=== PATIENT | male | born 1945 | race Caucasian/White ===

== ENCOUNTER → 2024-04-30 15:37 | Outpatient (REF) | payer OTHER, SELFPAY | LOC: RCS 15:37 | PROVIDERS: ATTENDING PHYSICIAN Internal Medicine Cardiovascular Disease; FAMILY PHYSICIAN Family Medicine | DX: I50.32 Chronic diastolic (congestive) heart failure (principal); Z95.3 Presence of xenogenic heart valve | CPT/HCPCS: 93306; Q9950 ==

== ENCOUNTER 2025-04-01 14:52 | Inpatient (IN) | payer OTHER, SELFPAY ==
[2025-04-01] VITALS (49 sets, daily range): BP systolic 50–134; BP diastolic 25–102
[2025-04-01] MEDS: VERSED 2 MG IV ×2 (13:04→13:52)
--- NOTE | 2025-04-01 13:13 | CON.CAR ---
Addendum entered and electronically signed by Pablo Marshall MD 04/01/25 18:37:
I saw and examined the patient.
The Lay Out Drafter's note was reviewed and I agree with the note.
Comment:
GEN: Intubated and sedated.
HEENT: supple, anicteric, mmm, ET tube
LUNGS: Scattered rhonchi
CV: Irreg, S1/S2, 1/6 syst LSB, no gallop
ABD: soft, BS+, NT/ND
EXT: No edema
NEURO: Gross non-focal
SKIN: Chronic venous stasis changes
Plan:
80-year-old male with past medical history of CABG/AVR, chronic heart failure with preserved ejection fraction, right bundle branch block, permanent atrial fibrillation, hypertension, obesity, and hyperlipidemia presented today with cardiac arrest
in the main hospital lobby. Code 9 was called overhead and upon arrival the patient was being administered high-quality CPR with no pulse. Monitor was placed and the patient was in V-fib. Patient was shocked with an AED and ultimately a cardiac
monitor was placed. High-quality CPR continued and an IV was placed. The rhythm was V-fib and the patient was shocked again with the resultant rhythm then becoming PEA. CPR continued and epinephrine was given x 3. The patient was intubated via
anesthesia with bloody secretions and bright red blood coming from his endotracheal tube. Rhythm became V-fib again the patient was again shocked and at this point regained circulation with a rhythm of A-fib with a left bundle branch block and a
blood pressure of 165/80. Amiodarone was initiated with a 300 mg bolus and a drip subsequently started. The patient was then transferred to the emergency room for further evaluation.
Ultimately the patient was then found to be hypotensive, placed on Levophed and further evaluation including head CT and body CT revealed no acute stroke and no clear evidence for pulmonary embolism or aortic dissection. Lung guerrero did suggest
bilateral airspace opacities consistent with possible pneumonia or pulmonary edema.
Labs revealed hemoglobin of 10, white count of 14, and creatinine of 1.2. Lactate was 2.4. Cardiac troponin was 0.67 with proBNP of 1500.
The patient was decided since he had some spontaneous movement to maintain normal temperature and was transferred to the intensive care unit.
The patient was continued on amiodarone, Levophed, and propofol.
The patient remains critically ill. The etiology of his cardiac arrest is unclear. He clearly had ventricular fibrillation but also had rhythms of PEA and asystole during his event.
CT scan was unremarkable. He does appear to have some acute on chronic heart failure with preserved ejection fraction. We will check an echocardiogram.
I reviewed his previous echo which did have at least moderate bioprosthetic aortic valve stenosis. Ejection fraction at that time was preserved. He did have some mild mitral stenosis as well.
Continue supportive care. Continue neurology evaluation. We will trend troponins. We will assess his neurostatus on a daily basis.
If he does recover he likely will need a cardiac catheterization and ICD.
I would expect his troponins, creatinine and lactate to rise in the short-term.
Continue antibiotics for now. With his bleeding I would hold anticoagulation for the next 12 hours and then reassess in a.m. likely restarting Eliquis at that time if he has no further bleeding. He may have bit his tongue during his cardiac arrest.
Time spent including code, review of records, and critical care time 1 hour and 30 minutes
Original Note:
Consultation
Consultation Request
Date/Time Consultation Requested: 04/01/25
Date/Time Consultation Performed: 04/01/25
Performing Provider: Dr. Marshall
Reason for Consultation: Urgent consult for code in the lobby
Medical History
-
History of Present Illness:
Patient had an btb-sj-[id number] cardiac arrest while in the main lobby registering for outpatient testing and cardiology responded for the overhead call of a code and is now consulted. Patient saw Dr. Gavin in the office on 10/14/2024 and felt that he
was doing well from a cardiac standpoint although there was some concern for bioprosthetic AVR dysfunction, plan was to check an outpatient echo. Patient presented to [facility] main lobby today to register for his outpatient echo and while walking
through the vestibule to reach the lobby he collapsed, a bystander reports patient was walking and then was suddenly on the ground. Situation was recognized situation was recognized, CPR started, AED applied, shock advised and given, CPR resumed
AED advised another shock which was given, and that time additional personnel arrived and patient was placed on heart monitor that showed VF, patient shocked using external defibrillator, a total of 3 rounds of epi was given, patient then with
asystole and was given additional CPR then VF and then another shock and since then has been in A-fib with his chronic RBBB. During this patient was also intubated and was found to have blood in his mouth prior to intubation. Patient was
stabilized transferred to a stretcher and moved to the ER.
PMH:
Chronic HFpEF
Permanent Afib
Chronic Eliquis OAC
cRBBB
s/p tissue AVR for severe 04/06/2011
CAD s/p CABG with SVG to PDA 04/06/2011
HTN
Dyslipidemia
Morbid obesity
Hypothyroidism
Past Medical History
Past Medical History: Other (In HPI)
Past Surgical History: Cardiac (s/p tissue AVR and CABG s/p tissue AVR and CABG svg-PDA 04/06/2011) and Cholecystectomy
Social History
Tobacco: Former Smoker
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
Drug: None
Personal: Single
Living: Alone
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
Family History
Family History: Other (CHF, CKD, cancer)
Allergies / Home Medications
Allergy/AdvReac Type Severity Reaction Status Date / Time
enoxaparin (From Lovenox) Allergy Rash Verified 03/02/22 11:22
Penicillins Allergy swelling Verified 03/02/22 16:01
and
redness at
site;
tolerated
cephalexin
�Medication �Instructions �Recorded �Confirmed �Type
atorvastatin 20 mg tablet 20 mg PO QPM High cholesterol 03/20/11 12/12/22 History
cholecalciferol (vitamin D3) 25 1,000 units PO DAILY Supplement 05/31/18 12/12/22 History
mcg (1,000 unit) tablet
multivitamin with folic acid 400 1 tab PO QPM Supplement 05/31/18 12/12/22 History
mcg tablet (Tab-A-Alberta)
tamsulosin 0.4 mg capsule 0.4 mg PO QPM bladder 05/31/18 12/12/22 History
Slow Fe 320 mg PO DAILY Supplement 01/05/22 12/12/22 History
apixaban 5 mg tablet (Eliquis) 5 mg PO BID Blood clot 01/05/22 12/12/22 History
prevention/tx
furosemide 40 mg tablet 40 mg PO QPM Fluid 01/05/22 12/12/22 History
retention/Swelling
levothyroxine 150 mcg tablet 150 mcg PO DAILY@0700 Thyroid 01/05/22 12/12/22 History
lisinopril 5 mg tablet 5 mg PO DAILY Blood pressure 01/05/22 12/12/22 History
Nebivolol Hcl [Bystolic] 10 mg PO DAILY 30 days #30 tabs 03/09/22 12/12/22 Rx
acetaminophen 500 mg tablet 1,000 mg PO Q6H PRN pain 12/12/22 12/12/22 History
levofloxacin 500 mg tablet 500 mg PO DAILY 6 days #6 tabs 12/12/22 Rx
Review of Systems
-
History Source: Patient
All other systems: Negative unless noted
Physical Exam
Vital Signs
Pulse Resp BP Pulse Ox
112 16 116/74 92
04/01/25 13:00 04/01/25 13:00 04/01/25 12:59 04/01/25 12:59
GEN: Unresponsive
HEENT: MMM, blood in his mouth
LUNGS: Intubated during code with bag mask ventilation. No audible wheeze
CV: Afib on monitor.
ABD: Obese. ND, soft
EXT: Trace B/L LE edema. No clubbing, cyanosis or lesions B/L
SKIN: No rash
Lab Results
All labs pending
ECG reviewed by me is A-fib with RVR and underlying chronic R BBB
Impression / Plan
-
PCP: Dr. Mona Jerry
Card: Dr. VANESSA Calero
Impression:
Admitted with out of hospital cardiac arrest 04/01/25
Out of hospital cardiac arrest with CPR, AED shocks, external shocks and ROSC 04/01/25
collapsed in the main lobby of the hospital while there to register for an echo
VF
Possible acute on chronic HFpEF
CXR shows pulmonary edema 04/01/25
Permanent Afib
Chronic Eliquis OAC
cRBBB
s/p tissue AVR for severe 04/06/2011
CAD s/p CABG with SVG to PDA 04/06/2011
HTN
Dyslipidemia
Morbid obesity
Hypothyroidism
Echo 04/30/2024: EF 65 to 70%, moderate concentric LVH, mild MS peak/mean 13/5 mmHg, mild MR, well-seated tissue AVR with peak/mean 45/29 mmHg, mild TR with PAP 41 mmHg
Plan:
-Patient had an [id number]-ndvewdmy cardiac arrest while in the main lobby registering for outpatient testing and cardiology responded for the overhead call of a code and is now consulted. Patient saw Dr. Gavin in the office on 10/14/2024 and felt that he
was doing well from a cardiac standpoint although there was some concern for bioprosthetic AVR dysfunction, plan was to check an outpatient echo. Patient presented to [facility] main lobby today to register for his outpatient echo and while walking
through the vestibule to reach the lobby he collapsed, a bystander reports patient was walking and then was suddenly on the ground. Situation was recognized situation was recognized, CPR started, AED applied, shock advised and given, CPR resumed
AED advised another shock which was given, and that time additional personnel arrived and patient was placed on heart monitor that showed VF, patient shocked using external defibrillator, a total of 3 rounds of epi was given, patient then with
asystole and was given additional CPR then VF and then another shock and since then has been in A-fib with his chronic RBBB. During this patient was also intubated and was found to have blood in his mouth prior to intubation. Patient was
stabilized transferred to a stretcher and moved to the ER.
-Initial ECG in the ER reviewed by me shows A-fib with RBBB
-All labs pending
-BP 116/74 without pressor
-Await results of CT head, abdomen and pelvis.
-CXR showed interstitial pulmonary edema. pro-BNP pending. Patient will likely need to be diuresed. Patient was taking Lasix 40 mg plus metolazone 5 mg on Mondays and and 80 mg all other days prior to admission. Will order Lasix 80 mg
IV x 1 now
-EF was preserved by echo 04/30/2020 form patient was due for another echo today. Will order bedside echo, order placed by me
-Patient with blood in his mouth prior to intubation. Patient is currently on Eliquis 5 mg BID for permanent A-fib. Await labs, but presumably will need to hold Eliquis
-Patient with known permanent A-fib and appears to be in A-fib on ECG following resuscitation. Patient was taking Nebivolol 10 mg daily prior to admission. HR is controlled currently.
--- NOTE | 2025-04-01 13:14 | PTCARENOTE ---
04/01/25 1332 Called to main lobby for code 9. Arrived to find CPR in progress, pt unresponsive, and respiratory attempting to mask ventilate. Pt noted to have copious amounts of blood in his mouth. Pt was suctioned with portable suction on the code
cart. Copious amounts of fresh red blood noted in the mouth and airway. Handheld glidescope utilized for intubation. MAC 4, DL x 2, #8.0 ETT placed, + ETCO2. Taped at 23cm. CPR resumed. Ventilation continued by respiratory therapy.
--- NOTE | 2025-04-01 13:14 | ED.GENMED ---
History of Present Illness
General
Chief Complaint: CODE
Time Seen by Provider: 04/01/25 12:52
History of Present Illness
History of Present Illness:
80-year-old male with a past medical history of hypertension, hyperlipidemia, CAD status post CABG, atrial fibrillation who presents to the emergency department transported from the main [facility] after rapid response for cardiac arrest. Patient was
apparently scheduled for an outpatient echocardiogram and collapsed in the lobby here at the hospital. He had immediate bystander CPR; initially an AED was applied and he was shocked by AED. Subsequently placed on monitoring analyst and received
approximately 15 minutes of ACLS including 2 shocks for VT/VF, 300 mg of amiodarone and 3 total doses of IV epinephrine. He was started on amiodarone infusion. After ROSC he was transported to the emergency room. He was intubated prior to arrival
in the emergency room. I called his brother Kev who says that patient was not very close with his family did not speak to anyone about his health issues but was generally unhealthy. He is apparently a patient of Dr. Calero for cardiology.
Past History
Past History
ED Past Medical History: Arrthythmia (Atrial fibrillation), CAD, Cancer (Skin), CHF, HTN, Hypercholesterolemia, Valvular disease, Hypothyroidism and Other (Cellulitis, Anemia, )
ED Past Surgical History: Cardiac (Valve replacement, CABG, Cardiac ablation), Cholecystectomy and Tonsilectomy
Social History
Tobacco: Former smoker
Alcohol: Occasional
Drug: None
Personal: Single
Living: alone
Family History
Family History: Negative Early CAD
Review of Systems
Review of Systems
Unable to obtain full review of systems at this time due to: due to acuity
All Other Systems: Not applicable
Phy Exam
Physical Exam
Physical Exam:
General: Unresponsive, intubated
Head: Normocephalic, atraumatic
Eyes: Conjunctiva normal, pupils are reactive to light bilaterally
Throat: Intubated, some dried blood noted around the lips
Neck: Trachea midline
Lungs: Clear to auscultation bilaterally, no wheezing, rales, rhonchi appreciated
Heart: Tachycardia with irregular rhythm, no murmurs appreciated; he does have palpable pulses throughout
Abd: Soft, mildly distended
Extremities: Warm and well-perfused, left pretibial intraosseous line in place
Scores
Heart Failure Risk
Heart Failure Risk Score: Not Applicable
Heart Score for Chest Pain Patients
STEMI patient?: Not applicable
Withdrawal Assessment of Alcohol
Withdrawal Assessment Completed?: Not applicable
Course
Orders/Labs/Results
Orders:
Orders
04/01/25
Electrocardiogram (*1) Stat
Other Reason for Exam: CODE
04/01/25 Breakfast
NPO
Allow oral meds: No
Allow clear liquids: No
NPO with Ice Chips: No
Comment: may receive medications via tube if ordered
04/01/25 Lunch
NPO
Allow oral meds: Yes
Allow clear liquids: No
04/01/25 12:49
Amiodarone [Cordarone] 300 mg .ROUTE .STK-MED ONE
Amiodarone [Cordarone] 900 mg .ROUTE .STK-MED ONE
EPINEPHrine [Adrenalin 1 mg/10 ml] 2 mg .ROUTE .STK-MED ONE
Magnesium Sulfate 1 G/D5w [Magnesium Sulfate] 1 gm .ROUTE .STK-MED ONE
04/01/25 12:55
Electrocardiogram (*1) Urgent
Reason for Study: Syncope
CT Head W/o Iv Contrast Urgent
Comment:
Reason For Exam: code
04/01/25 12:56
CT Pe/abd/pel W Stat
Comment:
Reason For Exam: code
CR Chest Portable - 1 View Stat
Comment:
Reason For Exam: unstable
Reason Study Needs to be Portable: Unable to Transport
04/01/25 13:03
EPINEPHrine [Adrenalin 1 mg/10 ml] 1 mg .ROUTE .STK-MED ONE
04/01/25 13:47
CMP [Comprehensive Metabolic Panel] Urgent
Complete Blood Count/With Diff Urgent
Lactic Acid Urgent
Magnesium Urgent
Comment: ADD ON
NT-proBNP Urgent
PTT Stat
Phosphorus Urgent
Comment: ADD ON
Prothrombin Time Stat
Triglycerides Routine
Comment: baseline levels with propofol infusion
Troponin I Urgent
FentaNYL 1,000 MCG/100 ML [Sublimaze] 1,000 mcg in 100 ml IV NOW
Indication:: Light Sedation
Begin Infusion:: Now
Goal:: pain score </= 1, CPOT 0-2
Maximum dose in mcg/hr:: 300
Continue currently infusing dose and titrate:: Yes
Titration Instructions:: Titrate every 30 minutes if patient exhibits signs of pain or discomfort
Titration Instructions:: (pain score >/= 2, CPOT >/= 3).
Titration Instructions:: Administer bolus dose and increase infusion by 25 mcg/hr.
Taper Instructions:: If pain score at goal for 4 consecutive hours (pain score </= 1, CPOT 0-2)
Taper Instructions:: decrease infusion by 50 mcg/hr every 2 hours.
Taper Instructions:: When dose </= 50 mcg/hr may turn infusion off and consider PRN
Taper Instructions:: intermittent bolus doses only.
Over-sedation Instructions:: If CPOT 0-2 (goal) and RASS -3 to -5 (below goal) decrease sedative by 50%
Over-sedation Instructions:: first. If pain score remains at goal and RASS remains below goal in 1 hour,
Over-sedation Instructions:: decrease opioid infusion by 50%.
Notify provider:: immediately if pt exhibits: chest wall rigidity, hemodynamic instability,
Notify provider:: agitation/pain despite maximum dosing, pain when RASS below goal.
Additional Instructions:: Patient MUST be mechanically ventilated.
Fentanyl Citrate/Pf [Sublimaze] 100 mcg IV NOW STA
Fentanyl Citrate/Pf [Sublimaze] 50 mcg IV [id number] PRN
NORepinephrine 4 MG/250 ML [Levophed] 4 mg in 250 ml IV NOW
Initial dose in mcg/min, then titrate:: 2
Titrate to keep:: MAP > 65 mmHg
Titrate by mcg/min:: 1-2 mcg/min
Frequency of titrations (minutes):: 5
Maximum dose in ICU in mcg/min:: 30
Maximum dose in IMU in mcg/min:: 8
Maximum dose in IVU in mcg/min:: 4
Begin to taper infusion when:: Remained at goal for 4hrs
Taper by mcg/min:: 1-2 mcg/min
Frequency of taper (minutes) if patient maintains goal:: 30
Taper to off?: Yes
If infusion off & no longer maintaining goal:: Contact Provider
Propofol 1,000,000 Mcg/100 ml [Diprivan] 1,000,000 mcg in 100 ml IV NOW
Indication:: Light Sedation
Begin Infusion:: Now
Goal:: RASS 0 to -2
Maximum dose in mcg/kg/min:: 50
Initial dose based on RASS:: Yes
If RASS is:: +1 or pt hemodynamically unstable (SBP < 90mmHg), initiate at 10 mcg/kg/min
If RASS is:: +2, initiate at 20 mcg/kg/min
If RASS is:: greater than or equal to +3, initiate at 30 mcg/kg/min
Titration Instructions:: Titrate by 5-10 mcg/kg/min every 5 minutes until RASS 0 to -2 achieved.
Taper Instructions:: If RASS is at or below goal for 4 consecutive hours decrease infusion by
Taper Instructions:: 5-10 mcg/kg/min every 2 hours to off.
Over-sedation Instructions:: If CPOT 0-2 (at goal) AND RASS -3 to -5 (below goal) decrease sedative by
Over-sedation Instructions:: 50% first. If pain score remains at goal and RASS remains below goal in
Over-sedation Instructions:: 1 hour, decrease opioid infusion by 50%.
Notify provider:: immediately if patient exhibits signs/symptoms of propofol-related
Notify provider:: infusion syndrome.
Additional Instructions:: Patient MUST be mechanically ventilated and MUST receive analgesia.
04/01/25 13:52
CARDIOLOGY CONSULT Urgent
Consulting Provider: Pablo Marshall
Was physician already notified: Yes
Consult Seed Packer [Seed Packer Consult] Urgent
Consulting Provider: Raymond Huber
Was physician already notified: Yes
Hull Placement- Treatment ONCE
Reason for insertion: I&O's Critical Care
04/01/25 13:54
Electrocardiogram (*1) Urgent
Reason for Study: Atrial Fibrillation
EKG- Treatment ONCE
04/01/25 13:58
Arterial Blood Gas Stat
%Oxygen/Room Air: 21
04/01/25 14:00
Blood Culture Q30M
MARY JANE Source: Blood/Venous
Specimen Description:
04/01/25 14:01
Echo 2D MMode Color/Doppler Routine
Reason for Study: cardiac arrest, tiss AVR, CHF
Cardiology Consult: Singh Marshall
04/01/25 14:02
Furosemide [Lasix] 80 mg IV NOW STA
04/01/25 14:09
Admit/Transfer Patient As Directed
Co-Sign Provider:
Level of Care: Inpatient admission
Assign to:: ICU
Physician / Group: Rosanna Ruffin
Diagnosis: cardiac arrest
Reason for Hospitalization: cardiac arrest
Expected length of stay greater than two midnights?: Yes
ELOS- Estimated Length of Stay in days: 3
I certify the patient meets the requirements for IP care: Yes
PRN Pain Medication Management As Directed
May give lesser potent ordered pain med per pt: Yes
preference::
Protocol:: Medication orders for pain may be administered in a
manner that supports deferring to patient preference
when the pt is:
- Requesting an ordered lesser potent pain medication.
Least to most potent pain medications are defined
as: acetaminophen < NSAID < tramadol < opioids
(morphine, oxycodone, hydromorphone).
- Requesting a lesser dose of the same medication IF
ORDERED.
- Requesting a less intrusive route of administration
if both routes are prescribed by the provider (PO <
IV).
04/01/25 14:10
Code Status As Directed
Resuscitation Status: Full Code
04/01/25 14:15
Ventilator Initial Settings [RESP] Stat
Special Instructions: wean FiO2 to 0.3 as tolerated to keep O2 sats > 92%
04/01/25 14:25
NG Tube [GI tube insertion- Treatment] ONCE
04/01/25 14:27
Fentanyl Citrate/Pf [Sublimaze] 100 mcg IV NOW STA
Vancomycin [Vancocin] 2,000 mg 0.9% Sodium Chloride 500 ml [Nss] 500 ml IV NOW
04/01/25 14:28
Urinalysis Reflex To Culture Urgent
Cefepime HCl [Maxipime] 1,000 mg IV NOW STA
04/01/25 14:30
Blood Culture Q30M
MARY JANE Source: Blood/Venous
Specimen Description:
FentaNYL 1,000 MCG/100 ML [Sublimaze] 1,000 mcg in 100 ml IV PER PROTOCOL
Propofol 1,000,000 Mcg/100 ml [Diprivan] 1,000,000 mcg in 100 ml IV PER PROTOCOL
04/01/25 14:54
Acetaminophen [Tylenol Oral Solution] 650 mg TUBE NOW STA
Acetaminophen [Tylenol/Feverall] 650 mg RECTAL Q6HPRN PRN
Buspirone [Buspar] 30 mg TUBE NOW STA
FentaNYL 1,000 MCG/100 ML [Sublimaze] 1,000 mcg in 100 ml IV PER PROTOCOL
Indication:: TTM Shivering Prot Step 2
Begin Infusion:: Other
Begin infusion when:: BSAS >/= 1 15 minutes after indicated step 1 bolus
Goal:: BSAS = 0, pain score </= 1, CPOT 0-2
Maximum dose in mcg/hr:: 300
Continue currently infusing dose and titrate:: Yes
Titration Instructions:: Titrate every 30 minutes if patient exhibits shivering (BSAS >/= 1) or
Titration Instructions:: signs of pain/discomfort (pain score >/= 2, CPOT >/= 3).
Titration Instructions:: Administer bolus dose and titrate by 25 mcg/hr.
Titration Instructions:: if BSAS >/= 1 30 minutes after beginning infusion with boluses,
Titration Instructions:: Proceed to Step 3. Continue to up titrate fentanyl as needed.
Taper Instructions:: If shivering and pain scores are at goal for 4 consecutive hours (BSAS = 0,
Taper Instructions:: pain score </= 1, CPOT 0-2): Decrease dose by 50 mcg/hr every 2 hours.
Taper Instructions:: When dose </= 50 mcg/hr may turn infusion off and consider as needed
Taper Instructions:: intermittent bolus doses only.
Notify provider:: immediately if pt exhibits: chest wall rigidity, hemodynamic instability,
Notify provider:: agitation/pain despite maximum dosing, pain when RASS below goal.
Additional Instructions:: if receiving sedation continue to up titrate analgesia first when available
Additional Instructions:: Patient MUST be mechanically ventilated.
Fentanyl Citrate/Pf [Sublimaze] 50 mcg IV [id number] PRN
Propofol 1,000,000 Mcg/100 ml [Diprivan] 1,000,000 mcg in 100 ml IV PER PROTOCOL
Indication:: TTM Shivering Prot Step 3
Begin Infusion:: Other
Begin infusion when:: BSAS >/= 1 30 minutes after beginning Fentanyl infusion with boluses
Goal:: BSAS 0 or RASS 0 to -2
Maximum dose in mcg/kg/min:: 50
Continue currently infusion dose and titrate:: Yes
Titration Instructions:: Titrate by 5-10 mcg/kg/min every 5 minutes until BSAS 0 or RASS 0 to -2.
Titration Instructions:: when available, up titrate analgesia first.
Titration Instructions:: If BSAS >/=1 despite Propofol at maximum tolerated dose, proceed to Step 4.
Taper Instructions:: If BSAS or RASS is at or below goal for 4 consecutive hours decrease
Taper Instructions:: dose by 5-10 mcg/kg/min every 2 hours.
Over-sedation Instructions:: If CPOT 0-2 (at goal) AND RASS -3 to -5 (below goal) decrease sedative by
Over-sedation Instructions:: 50% first. If pain score remains at goal and RASS remains below goal in
Over-sedation Instructions:: 1 hour, decrease opioid infusion by 50%.
Notify provider:: immediately if patient exhibits signs/symptoms of propofol-related
Notify provider:: infusion syndrome.
Additional Instructions:: Patient MUST be mechanically ventilated.
Vecuronium [place] [Norcuron] 9 mg IV Q1HPRN PRN
04/01/25 14:54
Electrocardiogram (*1) Urgent
Reason for Study: Other
Other Reason for Exam: cardiac arrest
Case Management Consult Once
Case Management Consult: Discharge Planning
NEUROLOGY CONSULT Urgent
Consulting Provider: Ariel Cabral
Was physician already notified: Yes
EEG Routine Routine
Reason for Exam: change in mental status
Prealbumin (Transthyretin) Routine
Triglycerides Routine
Comment: baseline levels with propofol infusion
Activity As Directed
Activity Level: As Tolerated
Activity As Directed
Activity Level: Bedrest
Comment: obtain Sport bed, Maintain HOB 30 degrees
Arterial Line As Directed
Bedside Glucose Monitoring As Directed
Frequency: Other frequency
Other frequency: Q1 hour x 4 hours
Additional Instructions:: If glucose is greater than or equal to 180 mg/dL: Contact provider to initiate
Critical Care Glycemic Protocol Target Glucose Range 140-180 mg/dL.
Catheter- Indwelling As Directed
Reason for insertion: I&O's Critical Care
Comment: temperature sensing Hull catheter with hourly urine output
Gastric Lavage As Directed
Route: Nasogastric Tube/ Orogastric Tube
Irrigant: Purified/Distilled Water
Amount in mls: 250-500ml iced water
Remove irrigant after __min: 10
Gastric lavage directions: - Chilled gastric lavage: instill 250-500mL iced water, clamp for 10-15 minutes
then connect gastric tube to suction.
- Repeat for total volume of 30mL/kg. Maximum 3 liters
- Discontinue once TTM device is initiated
Gastrointestinal Tubes As Directed
To suction?: No
Comment: insert nasogastric or orogastric tube
Head of Bed-Restrictions As Directed
Elevation Level: 30 degress
Frequency: At all times
INT (Intravenous Needle Therapy) As Directed
Comment: peripheral IV required, consider 2 peripheral IV lines
Intake/ Output As Directed
Frequency: q1h
Comment: hourly urine output
Neurological Checks As Directed
Frequency: q4h
Additional Instructions:: Obtain baseline, then every 4 hours
Notify MD As Directed
Notify physician if: BSAS >=1 despite maximum tolerated dose of propofol and proceeding to step 4 of shivering
protocol to change pain and sedation orders to deep sedation protocol and discontinue
current Fentanyl and Propofol orders.
Notify MD As Directed
Notify physician if: serum magnesium less than 3.0 mg/dL
Nursing to Place Non Medication Order As Directed
Physician Order: ABG every 12 hours x [address] Non Medication Order As Directed
Physician Order: order each lab below for Urgent every 6 hours x 6
CBC with Diff
Complete Metabolic Panel
Magnesium
Phosphorus
CK
CKMB
Troponin
Lactate
Pneumatic Compression Sleeves As Directed
Type: Knee high
Comment: bilateral
Pneumatic Compression Sleeves As Directed
Type: Knee high
Pre-induction Neuromuscular Assessment As Directed
Pre-induction Neuromuscular Assessments: -Confirm [place] Agitation Sedation Scale (RASS) of -3 to -5
-Document:
--GSC ([place] Coma Scale)
--Corneal reflex
--Train of four
Shivering Protocol for Targeted Temperature Management As Directed
Instructions:: Use stepwise approach for management of shivering.
Bedside shivering assessment score (BSAS) frequency:: Q 30 minutes until target temperature achieved then Q 1
hour and PRN
Step 1:: Fentanyl or Meperidine intermittent bolus doses
If BSAS >=/ 1 15 minutes after bolus(es), proceed to Step 2.
Step 2:: Begin/increase Fentanyl infusion + continue Fentanyl boluses
If BSAS >/= 1 after 2 analgesic bolus doses and Fentanyl infusion on for 30 minutes,
proceed to Step 3.
Step 3:: Begin Propofol infusion + continue Fentanyl infusion + Fentanyl boluses
If BSAS >=/1 despite Propofol at maximum tolerated dose, proceed to Step 4.
Step 4:: NMBA intermittent bolus doses.
Contact provider to update pain and sedation orders/obtain orders for DEEP SEDATION.
If BSAS >/= 1 after 2 NMBA bolus doses within 3 hours, proceed to Step 5.
Step 5:: Begin NMBA infusion + continue NMBA boluses + deep sedation.
Continuous IV analgesia and sedation must be ordered.
Additional Instructions:: When beginning Step 4 (NMBA bolus doses), obtain orders for DEEP SEDATION and
discontinue Fentanyl and Propofol orders from steps 1, 2, and 3.
Skin Care As Directed
Type of Skin Care: skin checks every 2 hours
Specialty Mattress As Directed
Type of Mattress: Other
Other type of speciality mattress: Sport Bed
Targeted Temperature Management Cooling Phase As Directed
Goal Temp:: 96.8 F (36 C)
Directions: - Wrap patient in surface cooling pads and attach to temperature management device.
- Maintain patient at goal temperature for 24 hours.
- Once device is initiated, discontinue use of cooled fluids and gastric lavage unless directed to
continue.
Targeted Temperature Management Normothermia Phase As Directed
Active Normothermia Instructions:: Maintain surface cooling device and set temperature to 97.4 F for 48 hours
post rewarming.
Targeted Temperature Management Rewarming Phase As Directed
Rewarming Directions:: -Increase temp by 0.33 degrees F every hour per automatic rewarming mode until temp
reaches 97.4 degrees F
-If using continuous NMBA, turn off when temperature reaches 97.0 degrees F
-Once normothermia target temperature is achieved, wean sedation to maintain a RASS
level of 0 to -2, refer to Pain, Agitation, Sedation guidelines
-Discontinue previous serial labs then
-CMP, CBC, Mag, Phos, and Lactate every 4 hours x 6
-Stop electrolyte replacement 6 hours prior to rewarming (unless electrolyte levels
critical)
Vital Signs As Directed
Frequency: Other
Additional Instructions:: q30min x4 then q1h including core temp via TTM device
Vital Signs As Directed
Frequency: Per unit guidelines
Weight As Directed
Frequency: Daily
Ventilator Initial Settings [RESP] Routine
Tidal Volume: 500
FIO2: 100
PEEP: 5
DX Deep Vein Thrombosis Video Routine
04/01/25 15:00
Blood Culture Q30M
MARY JANE Source: Blood/Venous
Specimen Description:
0.9% Sodium Chloride 500 ml [Nss] 500 ml IV Q30M
Vecuronium [place] [Norcuron] 60 mg 0.9% Sodium Chloride 250 ml [Nss] 190 ml IV PER PROTOCOL
04/01/25 16:00
Buspirone [Buspar] 30 mg TUBE Q8
04/01/25 18:00
Acetaminophen [Tylenol Oral Solution] 650 mg TUBE Q6
04/01/25 20:00
Carboxymethylcellulose [Refresh Celluvisc Gel] 1 drops OPHTH BID
04/02/25 06:00
Basic Metabolic Panel IN AM
Magnesium IN AM
NT-proBNP IN AM
PTT IN AM
Prealbumin (Transthyretin) IN AM
Prothrombin Time IN AM
CR Chest Portable - 1 View DAILY
Comment:
Reason For Exam: cardiac arrest
Reason Study Needs to be Portable: Patient Unstable
04/02/25 08:00
Pantoprazole [Protonix IV] 40 mg IV DAILY
04/03/25 06:00
NT-proBNP IN AM
PTT IN AM
Prealbumin (Transthyretin) IN AM
Prothrombin Time IN AM
CR Chest Portable - 1 View DAILY
Comment:
Reason For Exam: cardiac arrest
Reason Study Needs to be Portable: Patient Unstable
04/04/25 06:00
NT-proBNP IN AM
PTT IN AM
Prealbumin (Transthyretin) IN AM
Prothrombin Time IN AM
Triglycerides Q3D
Comment: every 72 hours while patient is on propofol
CR Chest Portable - 1 View DAILY
Comment:
Reason For Exam: cardiac arrest
Reason Study Needs to be Portable: Patient Unstable
04/07/25 06:00
Triglycerides Q3D
Comment: every 72 hours while patient is on propofol
04/10/25 06:00
Triglycerides Q3D
Comment: every 72 hours while patient is on propofol
Abnormal Lab Results
04/01/25 04/01/25
13:47 13:58
WBC 14.9 H 10^3/uL
(4.8-10.8)
RBC 3.77 L 10^6/uL
(4.70-6.10)
Hgb 10.7 L g/dL
(13.0-18.0)
Hct 32.8 L %
(39.0-52.0)
MCHC 32.6 L g/dL
(33.0-37.0)
RDW 15.4 H %
(11.5-14.5)
Abs Immat Gran (auto) 0.2 H 10^3/uL
(0-0.05)
Absolute Neuts (auto) 13.0 H 10^3/uL
(1.4-6.5)
Absolute Lymphs (auto) 1.1 L 10^3/uL
(1.2-3.4)
Immature Gran % 1.5 H %
(0-0.5)
Neutrophils % 87.0 H %
(42.2-75.2)
Lymphocytes % 7.3 L %
(20.5-51.1)
PT 17.6 H Sec
(11.4-14.6)
pH 7.26 L
(7.35-7.45)
HCO3 18.8 L mmol/L
(21-28)
Chloride 112 H mmol/L
(98-107)
Carbon Dioxide 19 L mmol/L
(22-30)
BUN 22 H mg/dl
(9-20)
Glucose 216 H mg/dl
(70-99)
Lactic Acid 2.4 H mmol/L
(0.7-2.0)
Calcium 8.3 L mg/dl
(8.4-10.2)
AST 241 H U/L
(17-59)
ALT 224 H U/L
(0-50)
Troponin I 0.067 H* ng/ml
Total Protein 6.2 L g/dl
(6.3-8.2)
04/01/25 13:47
04/01/25 13:47
Vital Signs
Initial and Last Documented VS:
Initial Vital Signs
Pulse Resp
139 20
04/01/25 12:53 04/01/25 12:53
Last Documented Vital Signs
Pulse Resp BP Pulse Ox
108 26 107/70 96
04/01/25 15:15 04/01/25 15:15 04/01/25 15:15 04/01/25 15:25
Procedures
Central Line
Left Femoral:
Indication for procedure:: cardiac arrest
Procedure completed by: Jese Aranda MD
If no, reason: Emergency procedure
Central line lumen: triple
Number of attempts: 1
Central line complications: none
Sterile dressing applied?: Yes
IV Access
Indication: Emergent access required
Performed by:: Jese Aranda MD
Site:: left pretibial IO
Gauge:: 15G
MDM/Problems Addressed
Differential Diagnosis Includes:
Dysrhythmia, acute SD, massive PE, subarachnoid hemorrhage
MDM/Problems Addressed:
80-year-old male presents after cardiac arrest�witnessed arrest in the lobby here with immediate resuscitation�intubated, shocked x 3, received multiple medications as described above. He arrives into the emergency room with ROSC. He is
normotensive but tachycardic appears to be in A-fib with RVR on initial EKG. He is slightly overbreathing ventilator. Establish central venous access. Chest x-ray confirmed ET tube placement. Will send for a CT of the head, chest/abdomen/pelvis.
Usual labs sent off including a CBC and a CMP, coags, troponin. Will check ABG. Will need ICU admission. I did discuss the case with interventional cardiology�apparently had some hemoptysis in the field, no plans for urgent cardiac
catheterization at this point will need resuscitation and further diagnostics prior to cardiac cath.
Labs reviewed: CBC shows leukocytosis to 14.9. Stable anemia 10.7. Chemistry still pending. Lactate was 2.4. VBG shows mild acidosis with pH 7.26. Imaging reviewed and CT head was negative for any acute abnormalities. CT chest/abdomen/pelvis
showed no clear evidence of PE or dissection. Findings concerning for multifocal pneumonia versus pulmonary edema. Will cover him with antibiotics. He did have some findings of heart failure, discussed with cardiology and ordered for Lasix. He
does have a superior endplate fracture of L1 likely from fall. Case discussed with hospitalist, resident surgeon, cardiology and patient will be admitted.
Chronic conditions affecting care:
CAD status post CABG, A-fib
*Radiology
Radiology exam reviewed: preliminary read by ED provider and radiology read reviewed
*Pulse Oximetry
SaO2: 92
Oxygen Mode of Delivery: Ventilator
Patient hypoxic: no (92%)
*EKG
Interpreted by ED Provider?: Yes
Heart Rate: 150
Rate: tachycardiac
Rhythm: a-fib
Mobile: normal axis
QRS Pattern: other (Bifascicular block)
Ischemia: non-specific ST changes
*Critical Care Note
Total Time (30-74mins, 75-104mins- exclusive of procedures): 62
comment:
Critical care statement: A total of 62 minutes of critical care time was provided for this patient. This includes management of unstable vital signs, evaluation of the patient at bedside, frequent reassessment, discussion with
consultants/hospitalist, and review of pertinent medical records, updates to family. This time was separate from time utilized to perform any aforementioned documented procedures.
Data Reviewed
Review of Other/Old Records Reveals: Labs and Records
Source: family and other (Discussed with bystanders and rapid response team)
Patient Management
Discussion with other providers: Hospitalist (Discussed with hospitalist) and Sales And Marketing Executive (Discussed with interventional cardiology, cardiology, resident surgeon)
Escalation/DeEscalation of care consider admission/obs:
Admission indicated
ED Attending Note
-
Portions of this chart may have been created with voice recognition software.� Occasional wrong word or��sound alike� substitutions may have occurred due to the inherent limitations of voice recognition software.
Discharge Plan
Departure
Patient Disposition: Admit
Date of Disposition: 04/01/25
Time of Disposition: 14:24
Admit to doctor: Laly
Presentation/result/management discussed w/ accepting MD/DO: Hospitalist
Discharge Problem:
Cardiac arrest, Pneumonia, CHF (congestive heart failure), L1 vertebral fracture
Interventions
Interventions:
*General Assessment Last Done: 04/01/25 13:49
*Neglect/Abuse Screening Last Done: 04/01/25 13:49
*ED- Fall Risk Assessment Last Done: 04/01/25 13:49
*ED COVID-19 Vaccine History Last Done: 04/01/25 13:49
ED- Cardiac Assessment Last Done: 04/01/25 13:05
ED- Pulmonary Assessment Last Done: 04/01/25 13:49
--- NOTE | 2025-04-01 13:56 | HPS.HSE ---
Family Physician
-
Family Physician: INTERVIEWE UNKNOWN - PT NOT
Chief Complaint
-
cardiac arrest
History of Present Illness
Mr. Pierre Khanna is a 80 yo man with hx CAD s/p CABG, aortic valve replacement 2010, atrial fibrillation, HTN, HLD, hypothyroidism presents to the ER after transported from main lobby where he had a witnessed cardiac arrest. Patient received
immediate CPR by bystander, received 15 minutes ACLS including 2 shocks for VT/VF, 300mg amiodarone and 3 doses of IV Epinephrine.
Medical History
Past Medical History
Past Medical History: Reports Other (CAD s/p CABG, aortic valve replacement 2010, atrial fibrillation, HTN, HLD, hypothyroidism)
Past Surgical History: Reports Cardiac (aortic valve replacement, CABG), Cholecystectomy and Tonsilectomy
Social History
Tobacco: Former Smoker
Alcohol: Occasional
Family History
Family History: Not pertinent
Allergies / Home Medications
Allergies reflects when Allergies were last updated in [email or web address].
Home Medications with original date entered in [email or web address]
Allergy/Medication List:
Allergies
Allergy/AdvReac Type Severity Reaction Status Date / Time
enoxaparin (From Lovenox) Allergy Rash Verified 03/02/22 11:22
Penicillins Allergy swelling Verified 03/02/22 16:01
and
redness at
site;
tolerated
cephalexin
Home Medications
atorvastatin 20 mg tablet 20 mg PO QPM High cholesterol 03/20/11
cholecalciferol (vitamin D3) 25 mcg (1,000 unit) tablet 1,000 units PO DAILY Supplement 05/31/18
multivitamin with folic acid 400 mcg tablet (Tab-A-Alberta) 1 tab PO QPM Supplement 05/31/18
tamsulosin 0.4 mg capsule 0.4 mg PO QPM bladder 05/31/18
Slow Fe 320 mg PO DAILY Supplement 01/05/22
apixaban 5 mg tablet (Eliquis) 5 mg PO BID Blood clot prevention/tx 01/05/22
furosemide 40 mg tablet 40 mg PO QPM Fluid retention/Swelling 01/05/22
levothyroxine 150 mcg tablet 150 mcg PO DAILY@0700 Thyroid 01/05/22
lisinopril 5 mg tablet 5 mg PO DAILY Blood pressure 01/05/22
Nebivolol Hcl [Bystolic] 10 mg PO DAILY 30 days #30 tabs 03/09/22
acetaminophen 500 mg tablet 1,000 mg PO Q6H PRN pain 12/12/22
levofloxacin 500 mg tablet 500 mg PO DAILY 6 days #6 tabs 12/12/22
*awaiting med rec
Review of Systems
-
Unable to obtain full review of systems at this time due to: Patient Intubation
History Source: Patient
Physical Exam
Vital Signs
Vital Signs
Pulse Resp BP Pulse Ox
112 16 116/74 92
04/01/25 13:00 04/01/25 13:00 04/01/25 12:59 04/01/25 13:17
Physical Exam
General: Other (intubated, sedated )
HEENT: Other (dry blood around mouth and tube )
Respiratory: Clear; No Wheezes
Cardiac: S1/S2 and Regular Rhythm
GI: Soft
Musculoskeletal: Other (venous stasis discoloration )
Skin: Warm and Dry
Neuro: Sedated
Psych: Calm
Data Reviewed
-
Diagnostic Radiology: Report Reviewed by me
Lab Data: Labs Reviewed by me
Impression/Plan
-
Mr. Pierre Khanna is a 80 yo man with hx CAD s/p CABG, aortic valve replacement 2010, atrial fibrillation, HTN, HLD, hypothyroidism presents to the ER after transported from [facility] where he had a witnessed cardiac arrest. Patient received
immediate CPR by bystander, received 15 minutes ACLS including 2 shocks for VT/VF, 300mg amiodarone and 3 doses of IV Epinephrine. Patient had a lot of blood in mouth during intubation.
EKG: afib with RVR @ 150, RBBB, bifascicular block
MAR: IV fentanyl, Propofol, Levophed initiated
Cardiac Arrest
Cardiogenic Shock
Coronary Artery Disease
Hx CABG
-patient s/p 2 shocks for VT/VF, IV Epi x 3, currently on amiodarone gtt
-s/p intubation
-admit to ICU
-Business Account Specialist Consult
-Cardiology consult
-Neurology consult
-start TTM protocol
-continue sedation with Fentanyl/ Propofol
-Levophed for hypotension
-TTE ordered
-IV Lasix ordered per Cardiology
-awaiting admission labs, awaiting med rec
Atrial Fibrillation
-IV amiodarone gtt as above
-hold [employer] MA[employer]GER Eliquis during cooling, reorder tomorrow evening
Hx Aortic Valve replacement
Essential HTN
Hyperlipidemia
Hypothyroidism
DVT PPx SCD while cooling
FULL CODE
brother updated, he is main decision maker
Total Critical Care Time 60 minutes. I was immediately available to the patient and staff. I personally examined, reviewed labs, diagnostic images/reports, interpretations, treatment plans, discussed patient care with other providers and family
or caregivers (if patient is unable to make decisions), entered orders as appropriate and documented the medical record.
--- NOTE | 2025-04-01 13:58 | W.PN.UPDATE ---
Update Note
Progress Note Update
Responded to overhead code and found patient collapsed in the vestibule of the main lobby. AED had already been applied and 1 shock had already been delivered, a second shock was advised and was delivered. Code cart arrived and monitor applied,
patient was in VF and was shocked then went to asystole, epi given, CPR performed and patient went to VF and was shocked with orthodoxy of his underlying permanent A-fib with RBBB. 34 minutes critical care time
[2025-04-01] MEDS: SUBLIMAZE 100 MCG IV ×2 (14:00→14:01)
[2025-04-01] MEDS: DIPRIVAN 100 IV ×3 (14:01→23:29)
[2025-04-01] MEDS: SUBLIMAZE 100 IV ×3 (14:03→23:29)
[2025-04-01 14:08] LABS: B.E. -7.9 mmol/L; HCO3 18.8 mmol/L (21-28); O2 Saturation % 97.7 % (94-98); PCO2 42 mmHg (35-48); PO2 83 mmHg (83-108)
[2025-04-01 14:09] LABS: Hematocrit 32.8 % (39.0-52.0); Hemoglobin 10.7 g/dL (13.0-18.0); Mean Corp Hgb Conc. 32.6 g/dL (33.0-37.0); Mean Corpuscular Volume 87.0 fL (80.0-94.0); Nucleated Red Blood Cells % 0 % (-); Platelet Count 161 10^3/uL (130-400); Red Cell Dist. Width 15.4 % (11.5-14.5)
[2025-04-01 14:19] LABS: APTT 29.0 Sec (23.4-35.0); INR 1.39; PT 17.6 Sec (11.4-14.6)
[2025-04-01] MEDS: LEVOPHED 250 IV ×2 (14:24→18:29)
[2025-04-01 14:29] LABS: ALT (SGPT) 224 U/L (0-50); AST (SGOT) 241 U/L (17-59); Albumin 3.6 g/dl (3.5-5.0); Alkaline Phosphatase 120 U/L (38-126); Blood Urea Nitrogen 22 mg/dl (9-20); Calcium 8.3 mg/dl (8.4-10.2); Carbon Dioxide 19 mmol/L (22-30); Chloride 112 mmol/L (98-107); Glucose 216 mg/dl (70-99); Potassium 4.5 mmol/L (3.5-5.1); Sodium 140 mmol/L (135-145); Total Protein 6.2 g/dl (6.3-8.2); Triglycerides 125 mg/dl (10-149); eGFR > 60.00
[2025-04-01 14:41] LABS: Troponin I 0.067 ng/ml
--- NOTE | 2025-04-01 14:48 | CON.NEURO ---
Neuro Assessment/Plan
Assessment
Acute change in mental status associated with cardiac arrest
Possible the patient is experiencing some level of anoxic encephalopathy, although, the patient's ability to move all extremities although not to request currently, in a short timeframe following his collapse, suggests good prognosis for a
neurological recovery. Best determination of the patient's neurological recovery will be 3 days following initial injury
Plan
Not clear patient would benefit from targeted temperature management as the patient has responsiveness although not directed
Consider repeated CT of head if the patient has a decline in cognitive function
Check EEG to ensure absence of electrical abnormalities including status epilepticus
Goal of attempting to reduce sedation when possible
We will follow peripherally
Consultation
Order
Date of Consultation: 04/01/25
Requesting Provider: Hospitalist
Reason for Consult: Encephalopathy
Subjective/Objective
Subjective Data
Date of Service: April 01, 2025
According to medical records, the patient was in his usual state of health and while presenting to this hospital's cardiology department for testing, today, collapsed. AED was applied and shock was given with CPR provided. Patient then had
asystole was given additional CPR and according to records developed ventricular fibrillation leading to another shock. Patient was subsequently intubated and moved to the emergency department. Total amount of downtime was estimated at
approximately 15 minutes. Patient himself is unable provide his own medical history. It is suggested that the patient bit his lip during his initial fall to the ground.
Objective Data
Vital Signs
Pulse Resp BP Pulse Ox
84 24 52 92
04/01/25 14:25 04/01/25 14:25 04/01/25 14:25 04/01/25 13:17
Lab Results
04/01/25 13:47
04/01/25 13:47
PT 17.6 Sec (11.4-14.6) H 04/01/25 13:47
INR 1.39 04/01/25 13:47
APTT 29.0 Sec (23.4-35.0) 04/01/25 13:47
APTT Cancelled 04/01/25 13:47
Sodium 140 mmol/L (135-145) 04/01/25 13:47
Potassium 4.5 mmol/L (3.5-5.1) 04/01/25 13:47
BUN 22 mg/dl (9-20) H 04/01/25 13:47
Glucose 216 mg/dl (70-99) H 04/01/25 13:47
Calcium 8.3 mg/dl (8.4-10.2) L 04/01/25 13:47
Dwt-O-Oogmtbjpznb Pept 1550 pg/ml 04/01/25 13:47
Patient Allergies
enoxaparin (From Lovenox) Allergy (Verified 03/02/22 11:22)
Rash
Penicillins Allergy (Verified 03/02/22 16:01)
swelling and redness at site; tolerated cephalexin
Review of Systems
-
Unable to obtain full review of systems at this time due to: Lethargy
History Source: Patient
All other systems: Reviewed and negative
Physical Exam
-
General: No Apparent Distress, Intubated and Appears Stated Age
Eyes: Round OU and [place] Conjunctivae; Negative Able to visualize OU
HEENT: Anicteric and Moist Mucous Membranes
Neck: Full Range of Motion
Respiratory: No Dyspnea
Cardiac: No JVD
GI: Non-distended
Skin: Unremarkable
Extremities: No Clubbing, No Cyanosis and No Edema
Psych: Unable to Assess
Extended Neurological Exam
Mood & Affect: Unable to Assess
Attention Span & Concentration: Unresponsive to Verbal Stimuli and Unresponsive to Physical Stimuli; Negative Awake, Alert or Interactive
Memory: Unable to Assess
Tremor: Hand Tremor Absent and Head Tremor Absent
Involuntary Movement: None
Speech: Unable to Assess
Cranial Nerve II: Left Eye: Unable to Assess Visual Floyd; Negative Pupillary Size Unremarkable (Pinpoint pupil)
Cranial Nerve II: Right Eye: Unable to Assess Visual Floyd; Negative Pupillary Size Unremarkable (Pinpoint pupil)
Cranial Nerves III, IV, : Extraocular Movement: Absent Doll's Eyes, Unable to Assess (Ptosis) and Other (Smooth eye closure after passive eye opening bilaterally)
Cranial Nerve V: Facial Sensation: Unable to Assess
Cranial Nerve VII: Facial Symmetry: Normal Facial Symmetry
Cranial Nerves IX, X: Palate Movement: Unable to Assess
Cranial Nerve XI: Shoulder Shrug: Unable to Assess
Cranial Nerve XII: Tongue Protusion: Unable to Assess
Muscle Strength, Overall: Spontaneously Moves (All extremities)
Muscle Bulk & Tone: Bulk Unremarkable and Tone Unremarkable
Pronator Drift: Unable to Assess
Deep Tendon Reflexes: Absent Throughout
Cold Sensation: Unable to Assess
Vibration Sensation: Unable to Assess
Touch Sensation: Negative Withdrawal to Pain
Coordination: Unable to Assess
Babinski Sign: Absent Bilaterally
Gait & Station: Unable to Assess
Data Reviewed
-
CT Head: Report Reviewed
Labs: Report Reviewed
Reviewed with: Physician and Nurse
Old Records: Summarized
Medications
-
Active Medications
Generic Name Dose Route Start Last Admin
Trade Name Freq PRN Reason Stop Dose Admin
Fentanyl Citrate 50 mcg 04/01/25 13:47
Fentanyl (50 Mcg/Ml) 100 Mcg/2 Ml Ampul IV 04/15/25 13:46
[id number] PRN
see protocol
Protocol
Fentanyl Citrate 1,000 mcg in 100 mls @ 0 mls/hr 04/01/25 14:30 04/01/25 14:21
Sublimaze IV 100 mls
PER PROTOCOL TERRY Administration
Protocol
Per Protocol
Propofol 1,000,000 mcg in 100 mls @ 0 mls/hr 04/01/25 14:30 04/01/25 14:22
Diprivan IV 100 mls
PER PROTOCOL TERRY Administration
Protocol
Per Protocol
Vancomycin HCl 2,000 mg/ 540 mls @ 270 mls/hr 04/01/25 14:27
Sodium Chloride IV 04/01/25 16:26
NOW STA
Home Medications
�Medication �Instructions �Recorded
tamsulosin 0.4 mg capsule 0.4 mg PO QPM bladder 05/31/18
apixaban 5 mg tablet (Eliquis) 5 mg PO BID Blood clot 01/05/22
prevention/tx
furosemide 40 mg tablet 40 mg PO [id number] Fluid 01/05/22
retention/Swelling
levothyroxine 150 mcg tablet 150 mcg PO DAILY@0700 Thyroid 01/05/22
lisinopril 5 mg tablet 5 mg PO DAILY Blood pressure 01/05/22
atorvastatin 40 mg tablet (Lipitor) 40 mg PO DAILY 04/01/25
furosemide 80 mg tablet (Lasix) 80 mg PO MOTH 04/01/25
metolazone 5 mg tablet 5 mg PO MOTH 04/01/25
nebivolol 10 mg tablet (Bystolic) 10 mg PO DAILY 04/01/25
therapeutic multivitamin 1 tab PO DAILY 04/01/25
Past History
Past History
ED Past Medical History: Arrthythmia (Atrial fibrillation), CAD, Cancer (Skin), CHF (With preserved ejection fraction), HTN, Hypercholesterolemia, Valvular disease, Hypothyroidism and Other (Cellulitis, Anemia, morbid obesity, BPH, left leg
cellulitis)
ED Past Surgical History: Cardiac (Valve replacement, CABG, Cardiac ablation), Cholecystectomy, Tonsilectomy and Other (Cataract extractions, squamous cell carcinoma excision 2018)
Social History
Tobacco: Former smoker
Alcohol: Occasional
Drug: None
Personal: Single
Living: alone
Family History
Family History: Negative Early CAD
--- NOTE | 2025-04-01 14:55 | CON.INTV ---
Consultation
Consultation Request
Date/Time Consultation Requested: 04/01/2025 - 135
Date/Time Consultation Performed: 04/01/2025 - 141
Requesting Provider: Dr. Aranda
Performing Provider: Dr. Huber
Reason for Consultation: Cardiac arrest
Medical History
-
Chief Complaint: Cardiac arrest
History of Present Illness:
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
presents with cardiac arrest. Patient was here in the hospital going for an echo that was ordered as an outpatient. He follows with technology strategist, Dr. Raymon Calero, last saw him in the office on 10/14/2024. Due to his history of chronic HFpEF, an
echo was ordered for him which is why he was here today. While walking through the hospital lobby, he collapsed and had no pulse. There was approximately 5 minutes or so before CPR was started. He was noted to have blood coming out of his mouth
and when he was finally intubated, there was frequent suctioning of straight blood coming from the endotracheal tube. The monitor was placed and he was found to be in V-fib and he was shocked. Epinephrine x 3mg was given. Patient was shocked for
a total of 2 times. Also given amiodarone and then was transferred to the ER for further stabilization. Due to hypotension, Levophed was started. CT head showed no evidence of an acute intracranial abnormality and CTA chest showed no evidence of
any PE or an acute aortic dissection, and there was evidence of pulmonary edema and pneumonia. Initial temperature 97.2 �F. Initial pulse rate 139, respiratory rate 20, BP 79/49 and he was saturating 92% via ventilator. Initial labs pertinent for
mild leukocytosis to 14.9, Hb 10.7, INR 1.39, initial lactate 2.4, initial troponin 0.067, and proBNP 1550. Patient was then transferred to the ICU and [facility] services consulted for additional management/recommendations.
When I saw the patient, he was intubated, making efforts to get up out of bed but was not following any of my simple commands and not appearing like he was aware that a tube was in his throat and that he was trying to get it removed. Current heart
rate 90, BP 107/70 via NIBP, end-tidal CO2 27 and he was saturating 96%. Currently intubated on AC/CMV at 24/500/100%/5, with PIP 20 cmH2O, VTe 516 mL and breathing at 24 breaths/min.
PMHx: Chronic A-fib on Eliquis, chronic HFpEF, CAD s/p CABG, RBBB, history of bioprosthetic AVR with bioprosthetic valve stenosis, hypothyroidism, hyperlipidemia, hypertension, morbid obesity, chronic venous stasis dermatitis, BPH
PSHx: Tonsillectomy, CABG x 1, bovine AVR, cholecystectomy, laser procedures for varicose veins of lower extremities with spontaneous hemorrhage, excision of chronic, draining subcutaneous mass from the left upper anterior chest wall (07/05/2018 -
squamous cell carcinoma arising in a epidermal inclusion cyst), wide excision of squamous cell carcinoma of the left upper chest wall, cataract surgeries, excision of chest wall cyst
Past Medical History
Past Medical History: Other (Above as per HPI)
Past Surgical History: Other (Above as per HPI)
Social History
Tobacco: Former Smoker (Quit 1973, up to 2 PPD x 5 years)
Alcohol: Occasional
Drug: None
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
Family History
Family History: Cancer (Father: Testicular cancer; maternal aunt: Colon cancer) and Other (Father: CKD + CHF; mother: Pneumonia, dementia, cardiac valve replacement, Parkinson's disease)
Allergies / Home Medications
Allergies
Allergy/AdvReac Type Severity Reaction Status Date / Time
enoxaparin (From Lovenox) Allergy Rash Verified 03/02/22 11:22
Penicillins Allergy swelling Verified 03/02/22 16:01
and
redness at
site;
tolerated
cephalexin
Home Medications
�Medication �Instructions �Recorded �Confirmed �Last Taken �Type
tamsulosin 0.4 mg capsule 0.4 mg PO QPM bladder 05/31/18 04/01/25 01/08/22 History
apixaban 5 mg tablet (Eliquis) 5 mg PO BID Blood clot 01/05/22 04/01/25 01/06/22 23:30 History
prevention/tx
furosemide 40 mg tablet 40 mg PO SUTUWEFRSA Fluid 01/05/22 04/01/25 01/08/22 18:30 History
retention/Swelling
levothyroxine 150 mcg tablet 150 mcg PO DAILY@0700 Thyroid 01/05/22 04/01/25 01/09/22 09:00 History
lisinopril 5 mg tablet 5 mg PO DAILY Blood pressure 01/05/22 04/01/25 01/08/22 11:30 History
atorvastatin 40 mg tablet (Lipitor) 40 mg PO DAILY 04/01/25 04/01/25 Unknown History
furosemide 80 mg tablet (Lasix) 80 mg PO MOTH 04/01/25 04/01/25 Unknown History
metolazone 5 mg tablet 5 mg PO MOTH 04/01/25 04/01/25 Unknown History
nebivolol 10 mg tablet (Bystolic) 10 mg PO DAILY 04/01/25 04/01/25 Unknown History
therapeutic multivitamin 1 tab PO DAILY 04/01/25 04/01/25 Unknown History
Review of Systems
-
Unable to Obtain full review of systems at this time due to: Acuity and Patient Intubation
Vitals / Labs / Diagnostic Testing
Vital Signs
Pulse Resp BP Pulse Ox
84 24 52 92
04/01/25 14:25 04/01/25 14:25 04/01/25 14:25 04/01/25 13:17
Lab Data
04/01/25 13:47
04/01/25 13:47
Laboratory Results
04/01/25 04/01/25 04/01/25
13:47 13:47 13:58
PT 17.6 H
INR 1.39
APTT Cancelled 29.0
pH 7.26 L
pCO2 42
pO2 83
HCO3 18.8 L
O2 Delivery Level Not Reportable
Diagnostic Testing:
Physical Exam
-
HEENT: Normocephalic, Anicteric, Other (Thick neck) and Other (ETT in place)
Cardiovascular: Irregular Rhythm (Irregularly irregular) and Peripheral Edema (+2 lower extremity pitting edema bilaterally)
Respiratory: Wheeze (negative), Rales (Bilaterally), Rhonchi (negative), Non-Labored Respirations and Other (Mechanical breath sounds heard bilaterally)
GI: Soft, Distended (Significant abdominal obesity), Non Tender and Normal Bowel Sounds
Neurology: Tremors (negative), Other (He is reaching for the endotracheal tube but not strong enough to pull it, not showing any awareness of his current situation and not following any commands for me) and Other (Pupils 2 mm bilaterally; positive
corneal reflexes bilaterally)
Skin: Warm, Dry, Other (Left femoral CVC) and Other (Chronic venous stasis dermatitis changes in the lower extremities bilaterally)
General: Respiratory Distress (negative), Fever (negative) and Chills (negative)
Assessment
-
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
dermatitis who presents with cardiac arrest. Patient was here in the hospital going for an echo that was ordered as an outpatient. He follows with technology strategist, Dr. Raymon Calero, last saw him in the office on 10/14/2024. Due to his history of
chronic HFpEF, an echo was ordered for him which is why he was here today. While walking through the hospital lobby, he collapsed and had no pulse. There was approximately 5 minutes or so before CPR was started. He was noted to have blood coming
out of his mouth and when he was finally intubated, there was frequent suctioning of straight blood coming from the endotracheal tube. The monitor was placed and he was found to be in V-fib and he was shocked. Epinephrine x 3 was given. Patient
was shocked for a total of 2 times. Also given amiodarone and then was transferred to the ER for further stabilization. Due to hypotension, Levophed was started. CT head showed no evidence of an acute intracranial abnormality and CTA chest showed
no evidence of any PE or an acute aortic dissection, and there was evidence of pulmonary edema and pneumonia. Initial temperature 97.2 �F. Initial pulse rate 139, respiratory rate 20, BP 79/49 and he was saturating 92% via ventilator. Initial
labs pertinent for mild leukocytosis to 14.9, Hb 10.7, INR 1.39, initial lactate 2.4, initial troponin 0.067, and proBNP 1550. Patient was then transferred to the ICU and [facility] services consulted for additional management/recommendations.
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
Impression:
#Cardiac arrest with shockable rhythm with shock x2 and epi x3 s/p ROSC (reported downtime about 15 minutes)
#Acute decompensated heart failure
#Circulatory shock likely due to sepsis
#Pneumonia/aspiration pneumonia
#Elevated troponin likely due to NSTEMI versus demand ischemia
#Chronic anemia
#Morbid obesity
#Chronic venous stasis dermatitis
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
#Pulmonary hypertension
#Chronic A-fib with RBBB
#Hypothyroidism
#Hyperlipidemia
#Hypertension
Plan:
- Maintain normothermia given that he is reaching for tube but I question his awareness of his actions and he is not following any of my commands
- Need to avoid fever; start acetaminophen every 6 at least for 24 hours and maintain core sensing temperature probe for the next 72 hours to assure that fever is avoided
- CT head shows no acute intracranial pathology
- Minimize sedation to help prognosticate
- Consulted neurology - recs appreciated
- Continuous EEG
- Eventual MRI brain
- Start antibiotics with Unasyn given that he likely aspirated today; follow-up blood cultures, MRSA swab and check urinalysis + urinations and respiratory culture
- Continue amiodarone drip as well
- Continue with mechanical ventilation with daily SAT/SBT if clinically appropriate
- Maintain plateau pressure <30 and titrate FiO2 + PEEP to keep SpO2 >90-94%
- Continue aspiration precautions; keep HOB >30-45�
- prn nebulized bronchodilators - not currently bronchospastic
- Oropharyngeal + deep ETT suctioning with subglottic as needed
- Daily CXR + blood gas
- Daily vent adjustments as needed based on blood gas and SaO2
- Low level of sedation with goal RASS as 0 to -2
- Diurese as tolerated
- Check echo
- Trend troponin until it peaks
- Once the bleeding from endotracheal tube stops, would consider starting heparin drip in addition to aspirin - -> if bleeding does not stop, then will need to take a look via bronch
- Hold off on starting statin given elevated LFTs
- Maintain net negative fluid balance as tolerated
- Cardiology consulted; depending on neurological recovery, he will need a ischemic evaluation and possibly ICD for secondary prevention
- Maintain MAP>65
- Continue Levophed and if requirements increase then start vasopressin
- Check random cortisol and if <20 then consider starting stress dose steroids for CIRCI
- Replete electrolytes with K>4, Mg>2
- Maintain euglycemia with goal BG 140-180; check A1C
- Trend H/H and transfuse if needed to keep Hb>7-8g/dL; keep plt>50k
- Early nutrition - start tube feeds by tomorrow if not able to be extubated by then
- Stress ulcer prophylaxis
- DVT ppx: SCDs only as he continued to have blood that he likely aspirated, possibly bit his tongue after he collapsed
Continue ICU level of care for this critically ill patient
Critical care statement: A total of 44 minutes of critical care time was provided for this patient today. This includes management of unstable vital signs, evaluation of the patient at bedside, reviewing the patient's pertinent medical records
including radiographs, microbiology, laboratory evaluations, and discussion with primary team, consultants, pharmacy, nutrition, physical therapy, case management, charge nurse, critical care nursing, and respiratory therapy.
Data:
CTA chest/abdomen/pelvis with contrast 04/01/2025:
Significantly limited examination secondary to motion artifact, the large body habitus, and the patient's arms down position.
No CTA evidence for an acute central pulmonary thromboembolus. Evaluation of the bilateral segmental and subsegmental pulmonary arteries is nondiagnostic.
Bilateral airspace opacities most suspicious for multifocal pneumonia, less likely alveolar pulmonary edema given the distribution.
Cardiomegaly.
Secondary findings suggesting a degree of right heart failure.
Superiorly displaced fracture at the superior endplate of L1, which appears acute and is new compared to the previous CT abdomen/pelvis. New distraction of L1-L2 intervertebral disc space.
[2025-04-01] MEDS: LASIX 80 MG IV (15:13)
[2025-04-01 15:57] LABS: Magnesium 2.2 mg/dl (1.6-2.3)
[2025-04-01 16:05] LABS: Glucose - Point of Care 190 mg/dl (70-99)
--- NOTE | 2025-04-01 16:13 | EEG.RPT ---
Electroencephalogram Report
Recording
Date of EE04/01/25
Type of EEG: Routine
Length of EEG recordin minutes
Done with Video Recording: Yes
Patient Status: Inpatient
Recording Conditions: Drowsy
Hyperventilation Performed: No
Photic Stimulation Performed: Yes
Report
LESS THAN 1 HOUR REPORT
LESS THAN 1 HOUR EEG INTERPRETATION:
Moderately abnormal EEG for age due to moderately diffuse bihemispheric slowing
CLINICAL CORRELATION:
This study was suggestive of diffuse cortical dysfunction without focal abnormality. No seizures were recorded.
Clinical correlation is advised.
METHODS:
A 21 channel digitized electroencephalogram (EEG) was performed at the bedside in the ICU. The 10/20 international system of electrode placement was used with ECG and lateral/vertical eye movements recorded. [employer] quantitative EEG analysis
software was utilized.
QUALITY OF STUDY:
Fair due to sweat artifact
ELECTROENCEPHALOGRAPHER IMPRESSION(S):
Background
Low amplitude poorly organized anterior-posterior voltage gradient of delta activity with admixed beta
There were no significant asymmetries of background activity noted.
Sleep
Not delineated
Photic Stimulation
Failed to activate the record
ECG
Normal sinus rhythm
Abnormal EEG Activity
None
[2025-04-01 16:37] LABS: Triglycerides 150 mg/dl (10-149)
[2025-04-01 16:41] LABS: Prealbumin (Transthyretin) 21.9 mg/dl (17.6-36.0)
[2025-04-01] MEDS: VANCOCIN 540 MG IV (16:58)
[2025-04-01 17:08] LABS: Glucose - Point of Care 196 mg/dl (70-99)
[2025-04-01] MEDS: OFIRMEV 100 IV ×2 (17:15→22:23)
[2025-04-01 17:17] LABS: Urine Character Clear (Clear)
--- NOTE | 2025-04-01 18:30 | PTCARENOTE ---
Received pt into Rm [id number] at 1500 via stretcher from ER. Respiratory Therapy in attendance and placed pt on vent at ordered settings: 24/500/100%/5+. Pox 95%. ETT #8.0, 23cm at lip. Received w/ following gtts infusing via Lt Femoral TLC: Propofol (on
hold), Fentanyl at 100mcg/hr, Levophed at 8mcg/min, Ammiodarone at 1mg/min. Thermistor Hull patent and draining clear yellow urine. Pt restless and agitated. Received w/ bilateral soft wrist restraints in use- when restraints loosened, pt appears
to reach for ETT. Dr Huber and Dr Cabral in to evaluate pt and discussing plans for TTM. Decision made to utilize temperature management [place] to maintain normothermia. Propofol initiated and Fentanyl bolus administered per MAR/worklist
intervention due to pt agitation w/ HR as high as 140-150's. Titrating Levophed to maintain MAP >65. [place] Pads applied to pt and machine set for normothermia. Ordered Lasix given. Labs drawn and sent. ABX started after BCx2 drawn. EEG and
Echo completed at bedside. Pt's brother and niece to room to see pt- updated on pt's present condition/plan of care. Questions answered and emotional support provided. Pt's brother and niece took pt's personal belongings including cell
phone/keys/glasses and clothes home with them. At 1800 pt's HR noted to be slowing into 50's. TT to Dr Oden w/ update- Amiodarone gtt decreased to 0.5mg/min per order. Rt nare DHT placed by Juan Manuel TAO- order placed to CXR to confirm placement.
[2025-04-01 18:31] LABS: Glucose - Point of Care 182 mg/dl (70-99)
[2025-04-01 19:13] LABS: Glucose - Point of Care 183 mg/dl (70-99)
[2025-04-01 19:16] LABS: Troponin I 1.040 ng/ml
[2025-04-01] MEDS: UNASYN IV ×2 (19:45→23:58)
[2025-04-01] MEDS: NOVOLOG FLEXPEN-LOW RESISTANCE SC (19:53)
[2025-04-01] MEDS: PITRESSIN 100 IV (19:54)
[2025-04-01] MEDS: LEVOPHED 258 MG IV (20:00)
--- NOTE | 2025-04-01 20:30 | PTCARENOTE ---
assumed care, pt intubated and sedated, no purposeful movements, WD to pain, + corneal, gag, and cough, PERRLA 2, B/L wrist restraints, Afib on the monitor, weak radials, doppler pedals, B/L SCDs, #8 ETT 23 @ lip, AC 24/500/5/100, SpO2 100%
diminished, coarse, crackles, DHT 70cm R nare, CXR taken for placement awaiting results, BSx4 hypoactive, temp sensing solis yellow output, Artic sun pads applied, set for goal 97.4F, 18 RFA, 18 R wrist, L Fem TL, Fent, Prop, Amio, Levo, Vaso, gtts
per worklist, otherwise rfer to
--- NOTE | 2025-04-01 20:30 | PTCARENOTE ---
assumed care, pt intubated and sedated, no purposeful movements, WD to pain, + corneal, gag, and cough, PERRLA 2, B/L wrist restraints, Afib on the monitor, nathalie @ x's Electric Meter Technician notifed no new orders @ this time, weak radials, doppler pedals, B/L SCDs, #8
ETT 23 @ lip, AC 24/500/5/100, SpO2 100% diminished, coarse, crackles, DHT 70cm R nare, CXR taken for placement awaiting results, BSx4 hypoactive, temp sensing solis yellow output, Artic sun pads applied, set for goal 97.4F, 18 RFA, 18 R wrist, L
Fem TL, Fent, Prop, Amio, Levo, Vaso, gtts per worklist, otherwise refer to documentation
[2025-04-01] MEDS: CORDARONE 518 MG IV (21:08)
--- NOTE | 2025-04-01 22:06 | PTCARENOTE ---
Pt HR sustaining in low 50's, @ x's in the 30's, CORPORATE DEVELOPMENT ANALYST notified and ordered to stop amio gtt, R radial A-line placed by CORPORATE DEVELOPMENT ANALYST
--- NOTE | 2025-04-01 22:10 | PTCARENOTE ---
CXR done @ 1906 not showing on my end, called and the analytical technician read report and confirmed by the doctor that DHT is in the stomach.
--- NOTE | 2025-04-01 22:11 | W.PN.UPDATE ---
Update Note
Progress Note Update
� Right Wrist Arrow 20 (12/09)�
Diagnosis:�s/p�Cardiac arrest
IV Line Comments: Uneventful Procedure�
Magdy's test completed pre-procedure: Yes�
A-Line Comments: Sterile technique as per standard protocol, Ultrasound guided insertion�
Functioning A-line in situ: Yes�
A-line Insertion Start Time:�2044�
A-line in at:��2100
[2025-04-01 22:33] LABS: B.E. -9.2 mmol/L; HCO3 16.2 mmol/L (21-28); O2 Saturation % 99.6 % (94-98); PCO2 33 mmHg (35-48); PO2 235 mmHg (83-108); Sodium 133 mMOL/L (136-145)
[2025-04-01 22:38] LABS: Potassium 6.2 mMOL/L (3.5-5.1)
[2025-04-01] MEDS: DEXTROSE 50% SYRINGE 25 GRAMS IV ×2 (22:54→23:06)
[2025-04-01] MEDS: NOVOLIN R 10 UNITS IV (23:06)
[2025-04-01] MEDS: SODIUM BICARBONATE 50 MEQ IV (23:06)
[2025-04-01 23:17] LABS: Glucose - Point of Care 137 mg/dl (70-99)
[2025-04-01] MEDS: SODIUM BICARBONATE 1150 MEQ IV (23:24)
[2025-04-01] MEDS: CALCIUM CHLORIDE 10% SYRINGE 60 MG IV (23:24)
[2025-04-01 23:44] LABS: Cortisol, Random 36.4 ug/dl
[2025-04-01] MEDS: BUSPAR 30 MG TUBE (23:58)
[2025-04-02] VITALS (13 sets, daily range): BP systolic 87–148; BP diastolic 34–89; PULSE 2–74; BMI 51.0
--- NOTE | 2025-04-02 00:17 | PTCARENOTE ---
systems reviewed, ABG and labs sent, K 6.2, hyperkalemic protocol followed, repleted CA2+, Bicarb gtt started, HR sustained in the 40's CLINICAL DOCUMENTATION CLERK aware, otherwise refer to documentation.
[2025-04-02 00:18] LABS: Glucose - Point of Care 160 mg/dl (70-99)
[2025-04-02] MEDS: NOVOLOG FLEXPEN-LOW RESISTANCE 1 UNITS SC (00:22)
[2025-04-02] MEDS: ADRENALIN 250 IV (00:43)
[2025-04-02 01:18] LABS: Glucose - Point of Care 149 mg/dl (70-99)
[2025-04-02 01:36] LABS: Potassium 4.9 mmol/L (3.5-5.1)
[2025-04-02 01:39] LABS: Troponin I 1.200 ng/ml
[2025-04-02] MEDS: LEVOPHED 258 MG IV (03:22)
[2025-04-02] MEDS: OFIRMEV 100 IV ×2 (03:26→10:05)
[2025-04-02 03:27] LABS: Glucose - Point of Care 172 mg/dl (70-99)
[2025-04-02 04:43] LABS: B.E. -8.2 mmol/L; HCO3 17.9 mmol/L (21-28); O2 Saturation % 99.4 % (94-98); PCO2 38 mmHg (35-48); PO2 139 mmHg (83-108)
[2025-04-02] MEDS: PITRESSIN 100 IV (04:44)
[2025-04-02] MEDS: DIPRIVAN 100 IV ×2 (04:45→11:30)
[2025-04-02] MEDS: SUBLIMAZE 50 MCG IV ×3 (04:45→14:52)
[2025-04-02] MEDS: UNASYN IV ×4 (04:46→23:33)
[2025-04-02 04:52] LABS: Hematocrit 31.1 % (39.0-52.0); Hemoglobin 10.5 g/dL (13.0-18.0); Mean Corp Hgb Conc. 33.8 g/dL (33.0-37.0); Mean Corpuscular Volume 84.5 fL (80.0-94.0); Platelet Count 165 10^3/uL (130-400); Red Cell Dist. Width 15.5 % (11.5-14.5)
--- NOTE | 2025-04-02 04:56 | PTCARENOTE ---
systems reviewed, CHG bath, labs sent, gtts titrated per worklist, when drawing labs work up, restless and agitated, was able to track my voice, squeeze my finger with both hands and wiggle his toes on both feet, pt denies pain though he appeared
very restless attempting to grab @ the ETT, Fent bolus given, otherwise refer to documentation,
[2025-04-02 05:12] LABS: INR 1.42; PT 17.9 Sec (11.4-14.6)
[2025-04-02 05:13] LABS: APTT 34.3 Sec (23.4-35.0)
[2025-04-02 05:23] LABS: Prealbumin (Transthyretin) 20.1 mg/dl (17.6-36.0)
[2025-04-02 05:27] LABS: Troponin I 0.865 ng/ml
[2025-04-02 05:31] LABS: Blood Urea Nitrogen 30 mg/dl (9-20); Calcium 8.6 mg/dl (8.4-10.2); Carbon Dioxide 17 mmol/L (22-30); Chloride 112 mmol/L (98-107); Estimated Creatinine Clearance 50 ml/min; Glucose 187 mg/dl (70-99); Magnesium 2.0 mg/dl (1.6-2.3); Potassium 4.7 mmol/L (3.5-5.1); Sodium 138 mmol/L (135-145); eGFR 40.75
[2025-04-02 05:46] LABS: Glucose - Point of Care 195 mg/dl (70-99)
[2025-04-02] MEDS: NOVOLOG FLEXPEN-MODERATE RESISTANCE 1 UNITS SC (06:05)
[2025-04-02] MEDS: BUSPAR 30 MG TUBE (07:38)
[2025-04-02] MEDS: NSS (PRESERVATIVE FREE) 10 ML IV (07:39)
[2025-04-02] MEDS: MIRALAX 17 GRAMS TUBE (07:39)
[2025-04-02] MEDS: PROTONIX IV 40 MG IV (07:39)
--- NOTE | 2025-04-02 08:14 | W.PN.INTV ---
Today's Communication / Plan
Recommendations
Mechanical ventilation
Lasix today and monitor intake/output
Antibiotics
Follow-up cultures
Hopefully can wake up today and perform SBT and extubate
If no evidence of bleeding from ETT, start heparin drip tomorrow with eventual ischemic evaluation (deferred to cardiology)
Continue ICU level of care for this critically ill patient
Assessment
-
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
dermatitis who presents with cardiac arrest. Patient was here in the hospital going for an echo that was ordered as an outpatient. He follows with construction flagger, Dr. Raymon Caelro, last saw him in the office on 10/14/2024. Due to his history of
chronic HFpEF, an echo was ordered for him which is why he was here today. While walking through the hospital lobby, he collapsed and had no pulse. There was approximately 5 minutes or so before CPR was started. He was noted to have blood coming
out of his mouth and when he was finally intubated, there was frequent suctioning of straight blood coming from the endotracheal tube. The monitor was placed and he was found to be in V-fib and he was shocked. Epinephrine x 3 was given. Patient
was shocked for a total of 2 times. Also given amiodarone and then was transferred to the ER for further stabilization. Due to hypotension, Levophed was started. CT head showed no evidence of an acute intracranial abnormality and CTA chest showed
no evidence of any PE or an acute aortic dissection, and there was evidence of pulmonary edema and pneumonia. Initial temperature 97.2 �F. Initial pulse rate 139, respiratory rate 20, BP 79/49 and he was saturating 92% via ventilator. Initial
labs pertinent for mild leukocytosis to 14.9, Hb 10.7, INR 1.39, initial lactate 2.4, initial troponin 0.067, and proBNP 1550. Patient was then transferred to the ICU and Administrative Services Manager services consulted for additional management/recommendations.
Chronic conditions CHEMIST PHYSICAL: Chronic A-fib on Eliquis, chronic HFpEF, CAD s/p CABG, RBBB, history of bioprosthetic AVR with bioprosthetic valve stenosis, hypothyroidism, hyperlipidemia, hypertension, morbid obesity, chronic venous stasis dermatitis, BPH
Impression:
#Cardiac arrest with shockable rhythm with shock x2 and epi x3 s/p ROSC (reported downtime about 15 minutes)
#Ventilator dependent respiratory failure (intubated 04/01/2025)
#Acute decompensated heart failure
#Circulatory shock likely due to sepsis
#Pneumonia/aspiration pneumonia
#Elevated troponin likely due to NSTEMI versus demand ischemia
#Chronic anemia
#Morbid obesity
#Chronic venous stasis dermatitis
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
#Pulmonary hypertension
#Chronic A-fib with RBBB
#Hypothyroidism
#Hyperlipidemia
#Hypertension
Plan:
- Maintain normothermia given that he is reaching for tube but I question his awareness of his actions and he was not following any of my commands as of 04/01 - -> now improved mentation as of 04/02, and he is more alert when sedation lowered with
commands followed
- Need to avoid fever; s/p acetaminophen every 6 at least for 24 hours and maintain core sensing temperature probe for the next 48 hours to assure that fever is avoided, although this is not as critical now that he is awakening and following
commands
- CT head showed no acute intracranial pathology
- Minimize sedation for goal RASS 0 to -2
- Consulted neurology - recs appreciated
- s/p EEG on 04/01/2025 - given that he is now following commands, EEG was stopped
- Continue antibiotics with Unasyn for aspiration; follow-up blood cultures, MRSA swab and respiratory culture
- Check COVID swab, flu swab + RSV
- Continue amiodarone drip; cardiology on board; eventual transition to PO
- Continue with mechanical ventilation with daily SAT/SBT if clinically appropriate --> hoping I can wake him up today and then extubate after SBT
- Maintain plateau pressure <30 and titrate FiO2 + PEEP to keep SpO2 >90-94%
- Continue aspiration precautions; keep HOB >30-45�
- prn nebulized bronchodilators - not currently bronchospastic
- Oropharyngeal + deep ETT suctioning with subglottic as needed
- Daily CXR + blood gas
- Daily vent adjustments as needed based on blood gas and SaO2
- Low level of sedation with goal RASS as 0 to -2
- Diurese as tolerated
- Echo checked on 04/01 showing moderate concentric LVH, with an LVEF of 40-45% with normal RV size, with suspected mildly reduced RV systolic function, with moderate bioprosthetic aortic valve stenosis with peak/mean gradients of 34/22 mmHg, and
PASP 38 mmHg
- Troponin peaked at 1.21 04/02/2025 � no longer need to continue trending at this time
- No active bleeding seen from endotracheal tube --> if still no active bleeding by tomorrow then would start heparin drip in addition to aspirin - -> if bleeding recurs then will need to take a look via bronch
- Hold off on starting statin given elevated LFTs
- Maintain net negative fluid balance as tolerated
- Cardiology consulted; depending on neurological recovery, he will need a ischemic evaluation and possibly ICD for secondary prevention
- Maintain MAP>65
- Continue Levophed and epinephrine (due to bradycardia); continue vasopressin; once Levophed requirements are at 5 mcg/min, then stop vasopressin and continue weaning down Levophed; try to wean off epinephrine as well
- Random cortisol is 36.4 - -> no need for stress dose steroids at this time
- Replete electrolytes with K>4, Mg>2
- Maintain euglycemia with goal BG 140-180; check A1C
- Trend H/H and transfuse if needed to keep Hb>7-8g/dL; keep plt>50k
- Early nutrition - start tube feeds by tonight if he is not extubated today
- Stress ulcer prophylaxis
- DVT ppx: SCDs for now - if no evidence of bleeding today then start HSQ later today, and then change to heparin gtt tomorrow given he is on Eliquis at home; of note, he possibly bit his tongue after he collapsed
Continue ICU level of care for this critically ill patient
Critical care statement: A total of 38 minutes of critical care time was provided for this patient today. This includes management of unstable vital signs, evaluation of the patient at bedside, reviewing the patient's pertinent medical records
including radiographs, microbiology, laboratory evaluations, and discussion with primary team, consultants, pharmacy, nutrition, physical therapy, case management, charge nurse, critical care nursing, and respiratory therapy.
Data:
CTA chest/abdomen/pelvis with contrast 04/01/2025:
Significantly limited examination secondary to motion artifact, the large body habitus, and the patient's arms down position.
No CTA evidence for an acute central pulmonary thromboembolus. Evaluation of the bilateral segmental and subsegmental pulmonary arteries is nondiagnostic.
Bilateral airspace opacities most suspicious for multifocal pneumonia, less likely alveolar pulmonary edema given the distribution.
Cardiomegaly.
Secondary findings suggesting a degree of right heart failure.
Superiorly displaced fracture at the superior endplate of L1, which appears acute and is new compared to the previous CT abdomen/pelvis. New distraction of L1-L2 intervertebral disc space.
CR 04/02/2025:
Diminished lung volumes. Increased pulmonary parenchymal opacities, left greater than right, as described. Possible considerations include pulmonary edema, aspiration, pneumonia, and/or atelectasis.
Probable small left pleural effusion has developed.
Stable endotracheal tube. Nasogastric tube place, extending into the stomach.
Subjective Dataa
Subjective Data
Date of Service:
Date of Service: April 02, 2025
Chief Complaint: Administrative Services Manager Follow Up
Subjective:
Patient was seen and evaluated this morning. Currently on Levophed at 5 mcg/min, epinephrine at 3 mg/min. Currently on amiodarone at 0.5 mg/min, and vasopressin 0.03 units/min. Fentanyl drip currently at 50 mcg/hr, and propofol at 15 mcg/kg/min.
Currently intubated on AC/CMV at 26/500/40%/5, with PIP 26 cmH2O, VTe 454 mL and breathing at 26 breaths/min. Earlier today, when sedation weaned he was following commands. No acute bleeding seen from ETT, just some old blood seen in mouth.
Review of Systems
General: Unobtainable - Sedation
Objective Data
Data Reviewed
Vital Signs / I&O / Oxygen:
Vital Signs
Temp Pulse Resp BP Pulse Ox
97.6 F 56 20 86/54 97
04/02/25 08:00 04/02/25 06:00 04/02/25 06:00 04/01/25 21:00 04/02/25 08:25
Intake and Output
04/01/25 04/02/25 04/03/25
06:59 06:59 06:59
Intake Total 3416.3 / 3579.2 651.6 / 651.6
Output Total 550 / 580 110 / 110
Balance 2866.3 / 2999.2 541.6 / 541.6
SaO2 [A/C] 97
SaO2 97
Physical Exam
General: Respiratory Distress (negative), Comfortable, Chills (negative) and Sweats (negative)
HEENT: Normocephalic, Anicteric, Other (ETT in place) and Other (Thick neck)
Cardiovascular: Irregular Rhythm (Irregularly irregular) and Peripheral Edema (+1 lower extremity pitting edema bilaterally)
Respiratory: Wheeze (negative), Crackles (Bilateral), Rhonchi (negative), Non-Labored Respirations, Stridor (negative) and ET Tube (Mechanical breath sounds heard bilaterally)
GI: Soft, Distended (Abdominal obesity), Non Tender, Normal Bowel Sounds and Other (Sedated)
Neurology: Tremors (negative) and Other (Sedated)
Skin: Warm, Dry, Cyanosis (negative) and Jaundice (negative)
Labs/Micro/Reports
Lab Data
04/02/25 04:35
04/02/25 04:35
Laboratory Results
04/01/25 04/01/25 04/01/25
13:47 13:47 13:58
PT 17.6 H
INR 1.39
APTT Cancelled 29.0
pH 7.26 L
pCO2 42
pO2 83
HCO3 18.8 L
O2 Delivery Level Not Reportable
04/01/25 04/02/25
22:19 04:35
PT 17.9 H
INR 1.42
APTT 34.3
pH 7.30 L 7.28 L
pCO2 33 L 38
pO2 235 H 139 H
HCO3 16.2 L 17.9 L
O2 Delivery Level
Microbiology
04/01/25 16:49 Urine Legionella Urinary Antigen - Final
Negative for Legionella pneumophila Serogroup 1 antigen.
A negative result does not rule out the possiblity of
Legionella infection due to other serogroups or species of
Legionella. Clinical correlation is recommended.
04/01/25 16:49 Urine Streptococcus pneumoniae Antigen (M - Final
Negative for Streptococcus pneumoniae antigen.
A negative result does not exclude infection with
Streptococcus pneumoniae. Clinical correlation is
recommended.
--- NOTE | 2025-04-02 08:59 | PTCARENOTE ---
Dr Pandya was in to see pt and wanted Amio to resume at 0.5mg/min
--- NOTE | 2025-04-02 09:08 | W.PN.CARDCBS ---
Today's Communication / Plan
-
Continue IV amio with eventual transition to PO
Would start heparin gtt when safe from a bleeding standpoint
LHC and ICD prior to discharge pending neurologic recovery
Impression / Plan
-
PCP: Dr. Mona Jerry
Card: Dr. VANESSA Calero
Impression:
Admitted with out of hospital cardiac arrest 04/01/25
Out of hospital cardiac arrest with CPR, AED shocks, external shocks and ROSC 04/01/25
collapsed in the main lobby of the hospital while there to register for an echo
VF
Possible acute on chronic HFpEF
CXR shows pulmonary edema 04/01/25
Permanent Afib
Chronic Eliquis OAC
cRBBB
s/p tissue AVR for severe 04/06/2011
CAD s/p CABG with SVG to PDA 04/06/2011
HTN
Dyslipidemia
Morbid obesity
Hypothyroidism
Echo 04/30/2024: EF 65 to 70%, moderate concentric LVH, mild MS peak/mean 13/5 mmHg, mild MR, well-seated tissue AVR with peak/mean 45/29 mmHg, mild TR with PAP 41 mmHg
Patient had an [id number] cardiac arrest while in the main lobby registering for outpatient testing and cardiology responded for the overhead call of a code and is now consulted. Patient saw Dr. Gavin in the office on 10/14/2024 and felt that he
was doing well from a cardiac standpoint although there was some concern for bioprosthetic AVR dysfunction, plan was to check an outpatient echo. Patient presented to [facility] main lobby today to register for his outpatient echo and while walking
through the vestibule to reach the lobby he collapsed, a bystander reports patient was walking and then was suddenly on the ground. Situation was recognized situation was recognized, CPR started, AED applied, shock advised and given, CPR resumed
AED advised another shock which was given, and that time additional personnel arrived and patient was placed on heart monitor that showed VF, patient shocked using external defibrillator, a total of 3 rounds of epi was given, patient then with
asystole and was given additional CPR then VF and then another shock and since then has been in A-fib with his chronic RBBB. During this patient was also intubated and was found to have blood in his mouth prior to intubation. Patient was
stabilized transferred to a stretcher and moved to the ER.
Plan:
-Remains intubated on pressors in the MICU. Awake, moving spontaneously and tracking this AM.
-Rate controlled permanent AFib on review of telemetry, no significant ventricular ectopy seen
-Recommend resuming amio gtt with eventual transition to PO amio
-Beta mely when hemodynamics allow
-Eventual LHC and ICD prior to discharge pending neurologic recovery
-Eliquis on hold. Start heparin gtt when able. AC has been on hold d/t to oral bleeding/possible tongue lac.
Discussed with nursing at bedside
Progress Note - Loom Checker
Subjective
Date of Service: April 02, 2025
NAOE. Remains intubated in the MICU on pressor support.
Objective
Labs:
04/02/25 04:35
04/02/25 04:35
Labs
Hgb 10.5 g/dL (13.0-18.0) L 04/02/25 04:35
Hct 31.1 % (39.0-52.0) L 04/02/25 04:35
Plt Count 165 10^3/uL (130-400) 04/02/25 04:35
PT 17.9 Sec (11.4-14.6) H 04/02/25 04:35
INR 1.42 04/02/25 04:35
APTT 34.3 Sec (23.4-35.0) 04/02/25 04:35
Sodium 138 mmol/L (135-145) 04/02/25 04:35
Potassium 4.7 mmol/L (3.5-5.1) 04/02/25 04:35
BUN 30 mg/dl (9-20) H 04/02/25 04:35
Creatinine 1.7 mg/dL (0.7-1.3) H 04/02/25 04:35
Glucose 187 mg/dl (70-99) H 04/02/25 04:35
Troponins
04/01/25 04/01/25 04/02/25
13:47 18:21 01:03
Troponin I 0.067 H* 1.040 H* D 1.200 H*
04/02/25
04:35
Troponin I 0.865 H* D
Vital Signs and I&O:
Vital Signs
Temp Pulse Resp BP Pulse Ox
97.6 F 56 20 86/54 97
04/02/25 08:00 04/02/25 06:00 04/02/25 06:00 04/01/25 21:00 04/02/25 08:25
Vital Signs
Temp Pulse Resp BP Pulse Ox
97.6 F 56 20 86/54 97
04/02/25 08:00 04/02/25 06:00 04/02/25 06:00 04/01/25 21:00 04/02/25 08:25
Intake & Output
03/31/25 04/01/25 04/02/25 04/03/25
06:59 06:59 06:59 06:59
Intake Total 3416.3 / 3579.2 473.2 / 473.2
Output Total 550 / 580 70 / 70
Balance 2866.3 / 2999.2 403.2 / 403.2
Physical Exam
Physical Exam
Gen: NAD, awake, restrained
HEENT: NC/AT, sclera anicteric
Neck: No JVD
CV: irregularly irregular, NL s1/s2
Lungs: Mechanically ventilated
Abd: S/ND
Ext: No LE edema
Skin: Warm, dry
Neuro: Moving all extremities and tracking
--- NOTE | 2025-04-02 09:18 | W.PN.HOSP.TC ---
Today's Communication/Plan
-
see a/p
Assessment / Plan
Assessment / Plan
Physical Exam
General: intubated, sedated, Obese
HEENT: pinpoint pupils b/l, normocephalic, atraumatic, moist mucus membranes
Respiratory: Clear to auscultation b/l
Cardiac: S1/S2 and Regular Rhythm, no murmurs rubs or gallops
GI: Soft, nontender, hypoactive bowel sounds.
Musculoskeletal: venous stasis discoloration lower ext's b/l
Skin: Warm and Dry
Neuro: Sedated
Mr. Pierre Khanna is a 80 yo man with hx CAD s/p CABG, aortic valve replacement 2010, atrial fibrillation, HTN, HLD, hypothyroidism [facility]. Patient received
immediate CPR by bystander, received 15 minutes ACLS including 2 shocks for VT/VF, 300mg amiodarone and 3 doses of IV Epinephrine. Patient had a lot of blood in mouth during intubation since resolved.
Cardiac Arrest
Cardiogenic Shock
Coronary Artery Disease
Hx CABG
Acute Heart Failure mid-range Ejection Fraction
-ICU admit
-patient s/p 2 shocks for VT/VF, IV Epi x 3, currently on amiodarone gtt
-s/p intubation
-Agency Director Consult appreciated stress dose steroids, hep gtt to start tomorrow 04/03 if no further significant bleeding
-wean pressor support as tolerated
-Cardiology consult appreciated eventual LHC and ICD prior to discharge pending neuro recovery
-CT Head appreciated no acute abn's
-EEG appreciated no sz activity, Moderately abnormal EEG for age due to moderately diffuse bihemispheric slowing
-Neurology consult appreciated minimize sedation as possible, consider repeat CT head if cognitive function further declines
-ECHO appreciated EF 40-45% decreased from previous ECHO EF 65%
-Lasix on hold d/t JAMES
#White Count Elevation
#Concern for aspiration PNA
trend WBC
Follow cultures
cont Unasyn
JAMES
Metabolic Acidosis
-brief bicarb gtt as per ICU
-monitor renal function
Atrial Fibrillation
-IV amiodarone gtt as above
-eventual hep gtt if no further significant bleeding
Hx Aortic Valve replacement
Essential HTN
holding home antihypertensives while on pressors
Hyperlipidemia
Hypothyroidism
DVT PPx SCD heparin subq
FULL CODE
Total Critical Care Time__50___ minutes. I was immediately available to the patient and staff. I personally examined, reviewed labs, diagnostic images/reports, interpretations, treatment plans, discussed patient care with other providers, entered
orders as appropriate and documented the medical record.
Anticipated Discharge: > 48 hours
Subjective/Interval History
-
Date of Service: April 02, 2025
sedated intubated on restraints and pressor support
Objective Data
-
Labs:
Laboratory Results
04/01/25 04/02/25 04/02/25
22:19 01:03 04:35
WBC 18.6 H
Hgb 10.5 L
Hct 31.1 L
Plt Count 165
PT 17.9 H
INR 1.42
APTT 34.3
HCO3 16.2 L 17.9 L
Sodium 138
Potassium 4.9 4.7
Chloride 112 H
Carbon Dioxide 17 L
BUN 30 H
Creatinine 1.7 H
Glucose 187 H
Calcium 8.6
Vital Signs:
Vital Signs
Temp Pulse Resp BP Pulse Ox
97.6 F 56 20 86/54 97
04/02/25 08:00 04/02/25 06:00 04/02/25 06:00 04/01/25 21:00 04/02/25 08:25
I&O
04/01/25 04/02/2504/03/25
06:59 06:59 06:59
Intake Total 3416.3 / 3579.2 651.6 / 651.6
Output Total 550 / 580 110 / 110
Balance 2866.3 / 2999.2 541.6 / 541.6
[2025-04-02 09:54] LABS: Glycohemoglobin (HgbA1c) 5.8 % (4.0-5.6)
--- NOTE | 2025-04-02 11:02 | W.PN.NEURO.1 ---
Today's Communication / Plan
-
Goal of attempting to reduce sedation when possible
Neuro Assessment/Plan
Assessment
Acute change in mental status associated with cardiac arrest
Most likely due to anoxic encephalopathy, now significantly improved
Plan
Consider repeated CT of head if the patient has a decline in cognitive function
No need for additional EEG or neuroimaging at this time
Goal of attempting to reduce sedation when possible
We will follow as needed
Subjective/Objective
Subjective Data
Date of Service: April 02, 2025
Patient unable to provide his own history due to intubation
Objective Data
Vital Signs
Temp Pulse Resp BP Pulse Ox
36.4 C 55 26 106/69 92
04/02/25 08:00 04/02/25 09:37 04/02/25 09:37 04/02/25 09:37 04/02/25 09:57
Lab Results
04/02/25 04:35
04/02/25 04:35
PT 17.9 Sec (11.4-14.6) H 04/02/25 04:35
INR 1.42 04/02/25 04:35
APTT 34.3 Sec (23.4-35.0) 04/02/25 04:35
Sodium 138 mmol/L (135-145) 04/02/25 04:35
Potassium 4.7 mmol/L (3.5-5.1) 04/02/25 04:35
BUN 30 mg/dl (9-20) H 04/02/25 04:35
Glucose 187 mg/dl (70-99) H 04/02/25 04:35
Calcium 8.6 mg/dl (8.4-10.2) 04/02/25 04:35
Phosphorus 5.4 mg/dl (2.5-4.5) H 04/02/25 04:35
Yvj-Z-Rscvaoxooxq Pept 1550 pg/ml 04/01/25 13:47
Patient Allergies
enoxaparin (From Lovenox) Allergy (Verified 03/02/22 11:22)
Rash
Penicillins Allergy (Verified 03/02/22 16:01)
swelling and redness at site; tolerated cephalexin
Review of Systems
-
Unable to obtain full review of systems at this time due to: Patient Intubation
History Source: Patient
All other systems: Reviewed and negative
Physical Exam
-
General: No Apparent Distress, Intubated and Appears Stated Age
Eyes: Round OU and [place] Conjunctivae
HEENT: Anicteric and Moist Mucous Membranes
Neck: Full Range of Motion
Respiratory: No Dyspnea
Cardiac: No JVD
GI: Non-distended
Skin: Unremarkable
Extremities: No Clubbing, No Cyanosis and No Edema
Psych: Unable to Assess
Extended Neurological Exam
Mood & Affect: Unable to Assess
Attention Span & Concentration: Awake, Alert, Interactive and Other (Follows single step request without difficulty)
Memory: Unable to Assess
Involuntary Movement: None
Speech: Unable to Assess
Cranial Nerve II: Left Eye: Pupillary Reactivity Unremarkable, Pupillary Size Unremarkable and Unable to Assess Visual Floyd
Cranial Nerve II: Right Eye: Pupillary Reactivity Unremarkable, Pupillary Size Unremarkable and Unable to Assess Visual Floyd
Cranial Nerves III, IV, : Extraocular Movement: Extraocular Movement Full in all Directions
Cranial Nerve V: Facial Sensation: Unable to Assess
Cranial Nerve VII: Facial Symmetry: Normal Facial Symmetry
Cranial Nerves IX, X: Palate Movement: Unable to Assess
Cranial Nerve XI: Shoulder Shrug: Unable to Assess
Cranial Nerve XII: Tongue Protusion: Unable to Assess
Muscle Strength, Overall: Spontaneously Moves
Muscle Bulk & Tone: Bulk Unremarkable and Tone Unremarkable
Pronator Drift: Unable to Assess
Cold Sensation: Unable to Assess
Vibration Sensation: Unable to Assess
Coordination: Unable to Assess
Gait & Station: Unable to Assess
Data Reviewed
-
CT Head: Report Reviewed
Labs: Report Reviewed
Reviewed with: Nurse and Patient
Old Records: Summarized
Past History
Past History
ED Past Medical History: Arrthythmia (Atrial fibrillation), CAD, Cancer (Skin), CHF (With preserved ejection fraction), HTN, Hypercholesterolemia, Valvular disease, Hypothyroidism and Other (Cellulitis, Anemia, morbid obesity, BPH, left leg
cellulitis)
ED Past Surgical History: Cardiac (Valve replacement, CABG, Cardiac ablation), Cholecystectomy, Tonsilectomy and Other (Cataract extractions, squamous cell carcinoma excision 2018)
Social History
Tobacco: Former smoker
Alcohol: Occasional
Drug: None
Personal: Single
Living: alone
Family History
Family History: Negative Early CAD
Medications
-
Medications:
Generic Name Dose Route Start Last Admin
Trade Name Freq PRN Reason Stop Dose Admin
Acetaminophen 650 mg 04/01/25 14:54
Acetaminophen 650 Mg Rectal Suppository RECTAL 04/05/25 14:53
Q6HPRN PRN
if cannot be given via tube
Acetaminophen 650 mg 04/02/25 18:00
Acetaminophen (Oral Solution) 650 Mg/20.3 Ml Cup TUBE 04/30/25 17:59
Q6 TERRY
Dextrose 12.5 grams 04/01/25 16:33
Dextrose 50% (0.5 Grams/Ml) 50 Ml Syringe IV 04/29/25 16:32
[id number] PRN
hypoglycemia
Protocol
Fentanyl Citrate 50 mcg 04/01/25 15:41 04/02/25 09:06
Fentanyl (50 Mcg/Ml) 100 Mcg/2 Ml Ampul IV 04/15/25 15:40 50 mcg
[id number] PRN Administration
see protocol
Protocol
Furosemide 40 mg 04/02/25 08:00 04/02/25 08:54
Furosemide 40 Mg (10 Mg/Ml) 4 Ml Vial IV 04/30/25 07:59 Not Given
On Hold: 04/02/25 09:07 DAILY TERRY
Glucagon 1 mg 04/01/25 16:33
Glucagon 1 Mg Vial IM 04/29/25 16:32
PRN PRN
hypoglycemia
Protocol
Heparin Sodium 5,000 units 04/02/25 16:00
Heparin 5,000 Units/Ml 1 Ml Vial SC 04/30/25 15:59
Q8 TERRY
Fentanyl Citrate 1,000 mcg in 100 mls @ 0 mls/hr 04/01/25 15:45 04/01/25 23:29
Sublimaze IV 100 mls
PER PROTOCOL TERRY Administration
Protocol
Per Protocol
Propofol 1,000,000 mcg in 100 mls @ 0 mls/hr 04/01/25 15:45 04/02/25 04:45
Diprivan IV 100 mls
PER PROTOCOL TERRY Administration
Protocol
Per Protocol
Amiodarone HCl 900 mg/ 518 mls @ 0 mls/hr 04/01/25 15:00 04/01/25 21:08
Dextrose/Water IV 518 mls
PER PROTOCOL TERRY Administration
Protocol
Per Protocol
Ampicillin Sodium/Sulbactam 120 mls @ 240 mls/hr 04/01/25 18:00 04/02/25 04:46
Sodium 3 gm/ Sodium Chloride IV 120 mls
Q6H TERRY Administration
Norepinephrine Bitartrate 8 mg 258 mls @ 0 mls/hr 04/01/25 19:45 04/02/25 03:22
/ Sodium Chloride IV 258 mls
PER PROTOCOL TERRY Administration
Protocol
Per Protocol
Vasopressin 20 units in 100 mls @ 0 mls/hr 04/01/25 19:45 04/02/25 04:44
Pitressin IV 100 mls
PER PROTOCOL TERRY Administration
Protocol
Per Protocol
Epinephrine HCl 4 mg in 250 mls @ 0 mls/hr 04/02/25 00:45 04/02/25 00:43
Adrenalin IV 250 mls
PER PROTOCOL TERRY Administration
Protocol
Per Protocol
Insulin Aspart 0 units 04/02/25 06:00 04/02/25 06:05
Insulin Aspart Moderate Resistance 300 Units/3 Ml Pen.Injctr SC 04/30/25 05:59 1 units
Q6 TERRY Administration
Protocol
Pantoprazole Sodium 40 mg 04/02/25 08:00 04/02/25 07:39
Pantoprazole Sodium 40 Mg/10 Ml Vial IV 04/30/25 07:59 40 mg
DAILY TERRY Administration
Polyethylene Glycol 17 grams 04/02/25 08:00 04/02/25 07:39
Polyethylene Glycol Powder 17 Grams Packet TUBE 04/30/25 07:59 17 grams
DAILY TERRY Administration
Sodium Chloride 10 ml 04/02/25 08:00 04/02/25 07:39
Sodium Chloride 0.9% (Preservative Free) 10 Ml Vial IV 04/30/25 07:59 10 ml
DAILY TERRY Administration
Sodium Chloride 0 flush 04/01/25 16:00
Sodium Chloride 0.9% (Flush) Syringe IV 04/29/25 15:59
PER PROTOCOL TERRY
[2025-04-02] MEDS: NOVOLOG FLEXPEN-MODERATE RESISTANCE SC ×3 (11:27→23:55)
[2025-04-02 11:40] LABS: Glucose - Point of Care 141 mg/dl (70-99)
[2025-04-02 12:22] LABS: COVID-19 Antigen Negative (Negative)
--- NOTE | 2025-04-02 13:06 | PTCARENOTE ---
Systems reviewed. Pt still attempting to pull ett so remains restrained. Cotinues to follow commands and nod appropriately. Epi currently off, vaso off per Dr Huber as well as propofol and pt is weaning. Tolerating well 5/5 40%. Pt has also
been placed on progressa pulm bed given minimal ability to effectively turn in centrella air bed. Pt reports being more comfortable in current bed. Otherwise no changes.
--- NOTE | 2025-04-02 13:24 | PTCARENOTE ---
Eduard Johnson called back and was given update. All questions answered.
[2025-04-02] MEDS: LASIX 40 MG IV (14:12)
[2025-04-02 14:14] LABS: B.E. -4.7 mmol/L; HCO3 20.4 mmol/L (21-28); O2 Saturation % 95.3 % (94-98); PCO2 37 mmHg (35-48); PO2 65 mmHg (83-108)
--- NOTE | 2025-04-02 15:07 | PTCARENOTE ---
pt extubated to 6lnc at 1500. c/o sternal cp when he was suctioned prior to extubation medicated as charted. otherwise no changes.
[2025-04-02] MEDS: DUONEB 3 ML INH ×2 (15:44→19:40)
--- NOTE | 2025-04-02 16:00 | PTCARENOTE ---
Pt resting in bed - awake alert- sats anywhere from 90-92%- Around 1540 Resp therapy in and changed pt from 6L nc to 6L midflow and almost at the same time pt started c/o midsternal chest pain followed by discomfort with breathing and shortness of
breath. Sats running in the 84-86% range. BS are sl coarse with faint wheezing. ECG done. Neb Rx given. 1545 breathing felt worse Midflow at 15L but sats only 87% . Dr. Huber updated and in to see pt. Bipap ordered and placed on pt 14/6 +10L and
sats currently are 94% and states chest pain and shortness of breath are starting to ease a little. Family at the bedside. Call allen in reach.
[2025-04-02] MEDS: HEPARIN 5000 UNITS SC ×2 (16:28→23:33)
[2025-04-02] MEDS: SOLU-MEDROL PF 40 MG IV ×2 (16:29→23:33)
[2025-04-02] MEDS: ROXICODONE 5 MG TUBE (16:30)
[2025-04-02] MEDS: LIDOCAINE 4% PATCH 1 PATCH TOPICAL (16:30)
[2025-04-02] MEDS: TYLENOL ORAL SOLUTION 650 MG TUBE ×2 (17:31→23:32)
[2025-04-02 17:43] LABS: Glucose - Point of Care 115 mg/dl (70-99)
--- NOTE | 2025-04-02 17:50 | PTCARENOTE ---
pt forgetful since extubation, keeps saying he is cold. fororiented and appropriate. can follow commands. mota. keeps grabbing at chest when he coughs and forgetting events that have been explained t/o day. pt requesting water. spoke with "Caprice"ivon. okay to take a break from bipap until 8 pm if he tolerates. pt placed on 10midflow initially by rt, but pt coughed grabbed at chest and sats dropped to high 80s. placed on 15lmdflow and sats currently 90-91. rr 22. pt does say he
feels more sob then baseline. reports he sleeps in a recliner. does say his breathing currently feels better then on bipap. does not appear distressed.
[2025-04-02] MEDS: DILAUDID 0.5 MG IV (18:19)
--- NOTE | 2025-04-02 18:42 | PTCARENOTE ---
pt keeps stating he is freezing, ttm is cooling pt for normothermia and suit is at [address] del valle who said normothermia can stop given pt awake and extubated. fluid returned to suit.
[2025-04-02] MEDS: PULMICORT 0.5 MG INH (19:40)
[2025-04-02] MEDS: REMOVE LIDOCAINE PATCH 1 PATCH REMOVE (21:03)
--- NOTE | 2025-04-02 21:26 | PTCARENOTE ---
Received patient AAOx3, forgetful, family at the bedside. Neurochecks Q4 ongoing, PERRLA 2mm, sluggish. Afib 70s-80s, BP stable 110s-120s/50s. Normothermic, SCDs on, weak pedal and radial pulses b/l. +1 generalized anasarca. On 15 liters midflow,
lung sounds diminished throughout with crackles in the bases. Occasional nonproductive cough. Right nare DHT at 70, positive bowel sounds, round, obese abdomen. Thermistor solis in place draining yellow urine. Lidocaine patch on chest removed, scab
on lip. PIVs patent, WNL. Left femoral TLC patent, WNL, amiodarone gtt ongoing per order. Right radial marcell zeroed, flushed, and leveled. Call allen within reach, assisted with repositioning.
--- NOTE | 2025-04-02 23:50 | PTCARENOTE ---
Patient still forgetful of situation, but otherwise AAOx3. Attempted bipap multiple times, patient becomes very anxious and is unable to tolerate it. Saturating 99% on 15 liters midflow. In chair position. Otherwise patient assessment unchanged from
previous, call allen within reach.
[2025-04-03 00:05] LABS: Glucose - Point of Care 147 mg/dl (70-99)
--- NOTE | 2025-04-03 02:10 | W.PN.UPDATE ---
Update Note
Progress Note Update
0200- Patient having increased swelling and pain in the right hand extending up to the right forearm. Hand and forearm are reddened and swollen due to Unasyn antibiotic infiltration from IV. Hilda intact and pulse intact, would consider removing if
swelling and pain increases. Recommended elevation of extremity, ice prn for swelling, and hyaluronidase to be injected by the IV team nurse.
[2025-04-03] MEDS: HYLENEX 150 UNITS SC (02:34)
--- NOTE | 2025-04-03 03:02 | VATNOTE ---
0200-CONTACTED BY PCN THAT PT HAD AN IV INFILTRATION IN RH OF UNASYN. ASSESSED PT AFTER PCN REMOVED IV ACCESS IN RH. PT WITH AN EXTRAVSATION OF STAGE 3.. MEETING ALL OF THE LISTED CRITERIA. PT TREATED AROUND PRIMARY INFILTRATION SITE WITH HYLENEX
DOCUMENTED PER PROTOCOL. RUE ELEVATED AND COOL COMPRESSES APPLIED. SIZE OF EXTRAVASATION FROM FINGERTIPS TO MIDFOREARM. OF NOTE, ARTERIAL LINE IN PLACE WELL. LIGHT GAUZE COVERING APPLIED OVER RH SOME OOZING NOTED AFTER HYLENEX ADMINISTERED.
VAT TO MONITOR.
[2025-04-03 03:53] LABS: B.E. -5.1 mmol/L; HCO3 20.6 mmol/L (21-28); O2 Saturation % 97.3 % (94-98); PCO2 40 mmHg (35-48); PO2 77 mmHg (83-108)
[2025-04-03 04:15] VITALS: BMI 49.4
--- NOTE | 2025-04-03 04:16 | PTCARENOTE ---
Patients right hand IV infiltrated with unasyn. DIVORCE MEDIATOR, pharmacy, and IV team notified. IV team to bedside, hyaluronidase injected around site, hand/arm elevated, ice pack provided. Patient reports no more pain and improved range of motion. Right arm IV
removed as well. CHG bath done, labs sent, repositioned. Otherwise patient assessment unchanged from previous, call allen within reach.
[2025-04-03 04:23] LABS: Hematocrit 28.0 % (39.0-52.0); Hemoglobin 9.4 g/dL (13.0-18.0); Mean Corp Hgb Conc. 33.6 g/dL (33.0-37.0); Mean Corpuscular Volume 84.6 fL (80.0-94.0); Platelet Count 112 10^3/uL (130-400); Red Cell Dist. Width 15.9 % (11.5-14.5)
[2025-04-03 04:27] LABS: Blood Urea Nitrogen 43 mg/dl (9-20); Calcium 8.5 mg/dl (8.4-10.2); Carbon Dioxide 20 mmol/L (22-30); Chloride 110 mmol/L (98-107); Estimated Creatinine Clearance 38 ml/min; Glucose 143 mg/dl (70-99); Magnesium 2.3 mg/dl (1.6-2.3); Potassium 5.2 mmol/L (3.5-5.1); Sodium 139 mmol/L (135-145); eGFR 29.91
[2025-04-03] MEDS: TYLENOL ORAL SOLUTION 650 MG TUBE ×3 (05:09→18:07)
[2025-04-03] MEDS: UNASYN IV ×3 (05:10→20:10)
[2025-04-03] MEDS: NOVOLOG FLEXPEN-MODERATE RESISTANCE 1 UNITS SC ×2 (06:12→23:14)
[2025-04-03 06:15] LABS: Glucose - Point of Care 152 mg/dl (70-99)
--- NOTE | 2025-04-03 06:57 | W.PN.HOSP.TC ---
Addendum entered and electronically signed by Wade Lam MD 04/04/25 05:48:
Stage 1 right middle flank pressure injury, POA
local wound care
Original Note:
Today's Communication/Plan
-
Speech Eval
Unasyn switched to Cefipime renally dosed, ID eval requested
Hep gtt if clear to start as per ICU
Worsening JAMES, Nephro eval requested
Wean O2 as tolerated
Assessment / Plan
Assessment / Plan
Physical Exam
General: no acute distress, appears comfortable, Obese
HEENT: pinpoint pupils b/l, normocephalic, atraumatic, moist mucus membranes, NGT in place
Respiratory: Clear to auscultation b/l
Cardiac: S1/S2 and Regular Rhythm, no murmurs rubs or gallops
GI: Soft, nontender, hypoactive bowel sounds.
Musculoskeletal: venous stasis discoloration lower ext's b/l
Skin: Warm and Dry
Neuro: AOx3 conversant coherent
Mr. Pierre Khanna is a 80 yo man with hx CAD s/p CABG, aortic valve replacement 2010, atrial fibrillation, HTN, HLD, hypothyroidism presents to the ER after transported from [facility] where he had a witnessed cardiac arrest. Patient received
immediate CPR by bystander, received 15 minutes ACLS including 2 shocks for VT/VF, 300mg amiodarone and 3 doses of IV Epinephrine. Patient had a lot of blood in mouth during intubation since resolved.
Cardiac Arrest
Cardiogenic Shock
Coronary Artery Disease
Hx CABG
Acute Heart Failure mid-range Ejection Fraction
-ICU admit
-patient s/p 2 shocks for VT/VF, IV Epi x 3, currently on amiodarone gtt
-s/p intubation later extubated 04/02 to BIPAP weaned off to midflow 12L
-speech eval
-weaned off pressors
-Wildlife Biology Technician Consult appreciated stress dose steroids
-Cardiology consult appreciated eventual LHC and ICD prior to discharge pending neuro recovery
-hep gtt if cleared to start as per ICU
-CT Head appreciated no acute abn's
-EEG appreciated no sz activity, Moderately abnormal EEG for age due to moderately diffuse bihemispheric slowing
-Neurology consult appreciated
-ECHO appreciated EF 40-45% decreased from previous ECHO EF 65%
-Lasix held d/t JAMES
#Prediabetes A1c 5.8
#Steroid induced hyperglycemia
Sliding scale
#White Count Elevation
#Concern for aspiration PNA
#Right hand/arm Swelling at IV site reported Unasyn infiltration overnight
trend WBC
Follow cultures
unasyn switched to cefipime renally dosed (has reported hx pcn allergy though appears to have tolerated unasyn prior to infiltration event)
ID eval requested
JAMES
Metabolic Acidosis
Mild Hyperkalemia
-brief bicarb gtt as per ICU completed
-monitor renal function
-Cr trended up to 2.2
-Nephro eval requested
Atrial Fibrillation
-IV amiodarone gtt as above
-eventual hep gtt if no further significant bleeding
Hx Aortic Valve replacement
Essential HTN
holding home antihypertensives while on pressors
Hyperlipidemia
Hypothyroidism
DVT PPx SCD heparin subq
FULL CODE
discussed with patient and patient's Brother LUISITO Angulo
Total Critical Care Time__50___ minutes. I was immediately available to the patient and staff. I personally examined, reviewed labs, diagnostic images/reports, interpretations, treatment plans, discussed patient care with other providers,
patient, and patient's Brother LUISITO Angulo, entered orders as appropriate and documented the medical record.
Anticipated Discharge: > 48 hours
Subjective/Interval History
-
Date of Service: April 03, 2025
no acute distress resting comfortably in bed. Overall reports feeling well. NGT remains present. reports chest soreness worse with cough but otherwise feels well.
Objective Data
-
Labs:
Laboratory Results
04/03/25
03:44
WBC 14.4 H
Hgb 9.4 L
Hct 28.0 L
Plt Count 112 L D
HCO3 20.6 L
Sodium 139
Potassium 5.2 H
Chloride 110 H
Carbon Dioxide 20 L
BUN 43 H
Creatinine 2.2 H
Glucose 143 H
Calcium 8.5
Vital Signs:
Vital Signs
Temp Pulse Resp BP Pulse Ox
98.5 F 75 20 116/76 97
04/03/25 03:20 04/03/25 06:00 04/03/25 06:00 04/02/25 20:48 04/03/25 06:00
I&O
04/01/25 04/02/25 04/03/25
06:59 06:59 06:59
Intake Total 3416.3 / 3579.2 1677.1 / 1677.1
Output Total 550 / 580 1020 / 1020
Balance 2866.3 / 2999.2 657.1 / 657.1
[2025-04-03] MEDS: PULMICORT 0.5 MG INH ×2 (07:17→20:59)
[2025-04-03] MEDS: DUONEB 3 ML INH ×3 (07:17→20:59)
[2025-04-03] MEDS: PROTONIX IV 40 MG IV (08:02)
[2025-04-03] MEDS: NSS (PRESERVATIVE FREE) 10 ML IV (08:02)
[2025-04-03] MEDS: LIDOCAINE 4% PATCH 1 PATCH TOPICAL (08:02)
[2025-04-03] MEDS: HEPARIN 5000 UNITS SC (08:03)
[2025-04-03] MEDS: MIRALAX 17 GRAMS TUBE (08:03)
[2025-04-03] MEDS: SOLU-MEDROL PF 40 MG IV ×3 (08:04→23:17)
--- NOTE | 2025-04-03 08:29 | W.PN.INTV ---
Today's Communication / Plan
Recommendations
Extubated yesterday
Continue mid flow nasal cannula, weaning down supplemental O2 flow rate as tolerated
prn BiPAP
Give another dose of Lasix today and monitor intake/output
Nephrology consulted, recs appreciated
Antibiotics
Follow-up cultures
Start heparin drip
Tentative left heart catheterization on Sunday
Trend LFTs and when transaminases improve then start high intensity statin
Continue amiodarone drip
Insert PICC line, remove left femoral CVC
Remove A-line
Hoping can downgrade to IMU by tomorrow
Assessment
-
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
dermatitis who presents with cardiac arrest. Patient was here in the hospital going for an echo that was ordered as an outpatient. He follows with nutritional chemist, Dr. Raymon Calero, last saw him in the office on 10/14/2024. Due to his history of
chronic HFpEF, an echo was ordered for him which is why he was here today. While walking through the hospital lobby, he collapsed and had no pulse. There was approximately 5 minutes or so before CPR was started. He was noted to have blood coming
out of his mouth and when he was finally intubated, there was frequent suctioning of straight blood coming from the endotracheal tube. The monitor was placed and he was found to be in V-fib and he was shocked. Epinephrine x 3 was given. Patient
was shocked for a total of 2 times. Also given amiodarone and then was transferred to the ER for further stabilization. Due to hypotension, Levophed was started. CT head showed no evidence of an acute intracranial abnormality and CTA chest showed
no evidence of any PE or an acute aortic dissection, and there was evidence of pulmonary edema and pneumonia. Initial temperature 97.2 �F. Initial pulse rate 139, respiratory rate 20, BP 79/49 and he was saturating 92% via ventilator. Initial
labs pertinent for mild leukocytosis to 14.9, Hb 10.7, INR 1.39, initial lactate 2.4, initial troponin 0.067, and proBNP 1550. Patient was then transferred to the ICU and Cutting Inspector services consulted for additional management/recommendations.
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
Impression:
#Cardiac arrest with shockable rhythm with shock x2 and epi x3 s/p ROSC (reported downtime about 15 minutes)
#Ventilator dependent respiratory failure (intubated 04/01/2025, extubated 04/02/2025)
#Acute decompensated heart failure/acute HFmrEF
#Circulatory shock likely due to sepsis - shock state resolved as of 04/02
#Pneumonia/aspiration pneumonia
#Elevated troponin likely due to NSTEMI versus demand ischemia
#Chronic anemia
#Morbid obesity
#Chronic venous stasis dermatitis
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
#Pulmonary hypertension
#Chronic A-fib with RBBB
#Hypothyroidism
#Hyperlipidemia
#Hypertension
Plan:
- s/p TTM - stopped early as he woke up, following commands, and was extubated on 04/02
- He continues to be awake and alert
- Can DC scheduled tylenol
- CT head showed no acute intracranial pathology
- Consulted neurology - recs appreciated
- s/p EEG on 04/01/2025 - given that he was following commands, EEG was stopped
- Continue antibiotics with Unasyn for aspiration; follow-up blood cultures, MRSA swab and respiratory culture
- COVID swab, flu swab + RSV all negative
- Continue amiodarone drip; cardiology on board; eventual transition to PO - defer to cardiology
- Patient was extubated on 04/02/2025
- Continue midflow nasal cannula with BiPAP as needed
- Keep SpO2 >90-94%
- Continue aspiration precautions; keep HOB >30-45�
- prn nebulized bronchodilators
- He was wheezing after extubation, and could have been a cardiac wheeze --> started solumedrol with budesonide and Duonebs, and today (04/03) his wheezing has resolved
- Can start weaning Solu-Medrol tomorrow to 40mg IV q12hr
- Although he has an JAMES, give dose of lasix now given I still have concern for fluid overload based on his recent BNP and CXR
- Re-check CXR tomorrow
- Diurese as Cr tolerates; re-assess daily
- Nephrology on board, and recs appreciated
- Echo checked on 04/01 showing moderate concentric LVH, with an LVEF of 40-45% with normal RV size, with suspected mildly reduced RV systolic function, with moderate bioprosthetic aortic valve stenosis with peak/mean gradients of 34/22 mmHg, and
PASP 38 mmHg
- Troponin peaked at 1.21 04/02/2025 � no longer need to continue trending at this time
- No active bleeding seen --> given his initial VT/VF arrest with suspected coronary ischemia, start heparin gtt --> if he develops hemoptysis on heparin gtt, then will need to take a look via bronch
- Hold off on starting statin given elevated LFTs - continue to trend LFTs
- Maintain net negative fluid balance as tolerated
- Cardiology consulted; given that he has recovered neurologically, he will need a ischemic evaluation and possibly ICD for secondary prevention -tentative LHC on Sunday depending on sCr
- Maintain MAP>65
- Now off vasopressors as of 04/02
- Random cortisol is 36.4 - -> no need for stress dose steroids at this time
- Replete electrolytes with K>4, Mg>2
- Maintain euglycemia with goal BG 140-180; check A1C
- Trend H/H and transfuse if needed to keep Hb>7-8g/dL; keep plt>50k
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
- Stress ulcer prophylaxis - no longer needed
- DVT ppx: start heparin gtt today; of note, he possibly bit his tongue after he collapsed
Lines:
PICC line now ordered so we can remove the right femoral CVC
Will remove A line later today if still not needed
He has a dobhoff tube for PO access
If he remains stable today then will downgrade out of ICU to IMU tomorrow.
Data:
CTA chest/abdomen/pelvis with contrast 04/01/2025:
Significantly limited examination secondary to motion artifact, the large body habitus, and the patient's arms down position.
No CTA evidence for an acute central pulmonary thromboembolus. Evaluation of the bilateral segmental and subsegmental pulmonary arteries is nondiagnostic.
Bilateral airspace opacities most suspicious for multifocal pneumonia, less likely alveolar pulmonary edema given the distribution.
Cardiomegaly.
Secondary findings suggesting a degree of right heart failure.
Superiorly displaced fracture at the superior endplate of L1, which appears acute and is new compared to the previous CT abdomen/pelvis. New distraction of L1-L2 intervertebral disc space.
CXR 04/02/2025:
Diminished lung volumes. Increased pulmonary parenchymal opacities, left greater than right, as described. Possible considerations include pulmonary edema, aspiration, pneumonia, and/or atelectasis.
Probable small left pleural effusion has developed.
Stable endotracheal tube. Nasogastric tube place, extending into the stomach.
CXR 04/03/2025:
Bilateral airspace opacities throughout both lungs, which appears slightly improved from most recent radiograph.
Interval removal of endotracheal tube.
Total time spent today was 76 minutes for this encounter. Time includes reviewing laboratory test/imaging results, reviewing pertinent medical records, obtaining and reviewing medical history, performing an appropriate exam, ordering medications,
tests and procedures. Time also includes documentation of this encounter, coordinating patient care and communicating with other healthcare professionals. Total time does not include separately billed tests performed on this date of service.
Subjective Dataa
Subjective Data
Date of Service:
Date of Service: April 03, 2025
Chief Complaint: Cutting Inspector Follow Up
Subjective:
Patient seen and evaluated this morning. 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 Now down to 12 L/min on midflow nasal cannula, saturating 94%. BP via A-line 140/65 and heart rate 80. Did not tolerate BiPAP last night. SOB when he
lays flat. Has a wet sounding cough and he has chest pain when he coughs. Currently on amiodarone at 0.5 mg/min. He currently denies DUNN, abdominal pain, nausea, fevers or chills.
Review of Systems
General: Other (Negative unless mentioned above)
Objective Data
Data Reviewed
Vital Signs / I&O / Oxygen:
Vital Signs
Temp Pulse Resp BP Pulse Ox
98.3 F 73 18 116/76 95
04/03/25 07:47 04/03/25 07:19 04/03/25 07:19 04/02/25 20:48 04/03/25 09:23
Intake and Output
04/02/25 04/03/25 04/04/25
06:59 06:59 06:59
Intake Total 3416.3 / 3579.2 1677.1 / 1693.8 200.1 / 200.1
Output Total 550 / 580 1020 / 1050 70 / 70
Balance 2866.3 / 2999.2 657.1 / 643.8 130.1 / 130.1
SaO2 [CPAP/PSV] 93
SaO2 [A/C] 94
SaO2 95
Nasal Cannula flow liters per 12
minute
Physical Exam
General: Respiratory Distress (negative), Comfortable, Chills (negative) and Sweats (negative)
HEENT: Normocephalic, Anicteric and Other (Thick neck)
Cardiovascular: Irregular Rhythm (Irregularly irregular) and Peripheral Edema (+1 lower extremity pitting edema bilaterally)
Respiratory: Wheeze (negative), Crackles (Bilateral), Rhonchi (negative), Non-Labored Respirations and Stridor (negative)
GI: Soft, Distended (Abdominal obesity), Non Tender, Normal Bowel Sounds and Other (Sedated)
Neurology: Awake, Tremors (negative) and Other (Drowsy at time)
Skin: Warm, Dry, Cyanosis (negative) and Jaundice (negative)
Labs/Micro/Reports
Lab Data
04/03/25 03:44
04/03/25 03:44
Laboratory Results
04/02/25 04/02/25 04/03/25
13:59 16:00 03:44
pH 7.35 Cancelled 7.32 L
pCO2 37 Cancelled 40
pO2 65 L Cancelled 77 L
HCO3 20.4 L Cancelled 20.6 L
O2 Delivery Level Cancelled
Microbiology
04/01/25 16:51 Nose MRSA Screen - Final
No Methicillin Resistant Staphylococcus aureus isolated.
04/01/25 22:19 Blood/Venous Blood Culture - Preliminary
No Growth in 24 hours- Final report to follow
04/01/25 16:55 Blood/Venous Blood Culture - Preliminary
No Growth in 24 hours- Final report to follow
04/02/25 14:45 Nasalpharynx Respiratory Syncytial Virus Ag - Final
Negative for Respiratory Syncytial Virus.
A false negative result may be obtained with a specimen
collected early in the acute phase. If symptoms persist, a
new specimen should be tested.
04/02/25 11:48 Nasal Swab Influenza Types A & B (TIMA) - Final
Negative for Influenza A & B, NAAT
Negative results must be combined with clinical observations
and patient history.
Nucleic Acid Amplification test (NAAT)performed on the
[employer] V[employer] platform.
04/02/25 02:47 Endotracheal Gram Stain - Preliminary
04/01/25 16:49 Urine Legionella Urinary Antigen - Final
Negative for Legionella pneumophila Serogroup 1 antigen.
A negative result does not rule out the possiblity of
Legionella infection due to other serogroups or species of
Legionella. Clinical correlation is recommended.
04/01/25 16:49 Urine Streptococcus pneumoniae Antigen (M - Final
Negative for Streptococcus pneumoniae antigen.
A negative result does not exclude infection with
Streptococcus pneumoniae. Clinical correlation is
recommended.
--- NOTE | 2025-04-03 09:25 | PTCARENOTE ---
pt aaox3 states having some sternal discomfort refusing meds at this time. placed lido patch as ordered. pt on 15l mid flow breath sounds diminished. pt very de la cruz when turned or layed flat. used lift to reposition. dht placement checked. afib
seen on monitor. foely care done.
--- NOTE | 2025-04-03 09:51 | PTOTSP ---
Dysphagia Evaluation
Patient at an acute elevated risk for dysphagia due to cardiac arrest with intubation 04/01-04/02, concern for aspiration PNA, and SOB/SHEPPARD. Dysphagia evaluation limited as patient politely declined PO trials beyond sips of thin water due to SOB.
Recommend:
1. NPO consider temporary non-oral means (DHT in place)
2. Medications via non-oral means
3. Aspiration Risk Hydration Protocol - single sips of water after oral care with nursing supervision
4. Dysphagia re-evaluation at the acute care level.
--- NOTE | 2025-04-03 09:54 | PN.CDI ---
CDI
- -
CDI:
Physician Documentation Request
Admit Date: 04/01/25 14:52
Dear Doctor Genaro,
Please review the following and provide your response in the progress notes.
Clinical Indicators:
- RN skin assessment indicates Stage 1 right middle flank pressure injury, POA
Physician documentation of the type and location of wounds is required for compliant documentation. Based on the above clinical findings and your assessment, please provide the following in your progress note:
1. Location of the ulcer/wound, including laterality.
2. Type (etiology) of ulcer/wound:
- Diabetic ulcer
- Arterial (ischemic) ulcer
- Traumatic wound
- Venous stasis ulcer
- Pressure (decubitus) ulcer
- Other
Use of terms such as suspected, likely, concern for, or probable (associated with a specific diagnosis that is being evaluated, monitored, or treated as if it exists) are acceptable and can be coded in the inpatient setting, when documented at the
time of discharge.
Thank you,
Corby Correia RN
CDI Specialist
Please use your independent medical judgment in providing your response.
*Source: National Pressure Ulcer Advisory Panel (NPUAP)
--- NOTE | 2025-04-03 10:45 | CM ---
Initial assessment completed on 04/02/25. Patient extubated. Assessment completed with patient and brother. Patient lives alone in a 3rd floor apartment in elevator building with no steps to enter. 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
with a SPC when outside the home. Patient also has a RW which he does not use. He does drive. No services in the home. No HC-POA. No service. PCP is Dr. Mona Jerry with [facility]. Pharmacy is [facility] on [facility] in . Discharge POC: TBD.
Await therapy evaluation.
Brother: Nico Khanna @ [phone]
Niece:Elizabeth Gonzalez @ [phone]
Niece: Elza Khanna @ [phone].
[2025-04-03] MEDS: LASIX 40 MG IV (11:17)
[2025-04-03 11:45] VITALS: PULSE 2; PULSE 77
[2025-04-03] MEDS: NOVOLOG FLEXPEN-MODERATE RESISTANCE SC ×2 (12:07→17:11)
[2025-04-03] MEDS: CORDARONE 518 MG IV (12:07)
[2025-04-03 12:18] LABS: Glucose - Point of Care 141 mg/dl (70-99)
--- NOTE | 2025-04-03 12:34 | W.CON.NEPH ---
Addendum entered and electronically signed by Gigi Munoz DO 04/03/25 12:48:
35 minutes critical care time
Original Note:
Consultation
-
Date/Time Consultation Requested: April 03, 2025 at 8 AM
Date/Time Consultation Performed: April 03, 2025 at 9 AM
Requesting Provider: Dr. benjamin
Performing Provider: Dr. Munoz
Reason for Consultation: Acute kidney injury
Medical History
-
Chief Complaint: Acute kidney injury
History of Present Illness:
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
presents with cardiac arrest. Patient was here in the hospital going for an echo that was ordered as an outpatient. He follows with gwot ia/ilo intelligence support, Dr. Raymon aClero, last saw him in the office on 10/14/2024. Due to his history of chronic HFpEF, an
echo was ordered for him which is why he was here today. While walking through the hospital lobby, he collapsed and had no pulse.
Renal consultation for acute kidney injury with creatinine increasing from normal baseline. Significantly hypotension. Was on pressor support briefly. Was intubated and then extubated rather quickly.
Takes furosemide regularly outpatient. He has not noticed any significant weight gain prior to admission.
Past Medical History
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
Social History
Tobacco: Non-Smoker
Alcohol: None
Family History
Family History: Not Pertinent
Allergies / Home Medications
Allergy/AdvReac Type Severity Reaction Status Date / Time
enoxaparin (From Lovenox) Allergy Rash Verified 03/02/22 11:22
Penicillins Allergy swelling Verified 03/02/22 16:01
and
redness at
site;
tolerated
cephalexin
�Medication �Instructions �Recorded �Confirmed �Type
tamsulosin 0.4 mg capsule 0.4 mg PO QPM bladder 05/31/18 04/01/25 History
apixaban 5 mg tablet (Eliquis) 5 mg PO BID Blood clot 01/05/22 04/01/25 History
prevention/tx
furosemide 40 mg tablet 40 mg PO SUTUWEFRSA Fluid 01/05/22 04/01/25 History
retention/Swelling
levothyroxine 150 mcg tablet 150 mcg PO DAILY@0700 Thyroid 01/05/22 04/01/25 History
lisinopril 5 mg tablet 5 mg PO DAILY Blood pressure 01/05/22 04/01/25 History
atorvastatin 40 mg tablet (Lipitor) 40 mg PO DAILY High Cholesterol 04/01/25 04/01/25 History
furosemide 80 mg tablet (Lasix) 80 mg PO MOTH Fluid 04/01/25 04/01/25 History
Retention/Swelling
metolazone 5 mg tablet 5 mg PO MOTH Fluid 04/01/25 04/01/25 History
Retention/Swelling
nebivolol 10 mg tablet (Bystolic) 10 mg PO DAILY Heart 04/01/25 04/01/25 History
Disease/Condition
therapeutic multivitamin 1 tab PO DAILY Supplement 04/01/25 04/01/25 History
Review of Systems
-
Mild shortness of breath no chest pain no difficulty urinating
All other systems: Negative unless noted
Physical Exam
Vital Signs
Vital Signs
Temp Pulse Resp BP Pulse Ox
98.3 F 86 20 132/62 94
04/03/25 07:47 04/03/25 11:57 04/03/25 11:57 04/03/25 11:17 04/03/25 11:57
Lab Results
Sodium 139 mmol/L (135-145) 04/03/25 03:44
Potassium 5.2 mmol/L (3.5-5.1) H 04/03/25 03:44
Chloride 110 mmol/L (98-107) H 04/03/25 03:44
Carbon Dioxide 20 mmol/L (22-30) L 04/03/25 03:44
BUN 43 mg/dl (9-20) H 04/03/25 03:44
Creatinine 2.2 mg/dL (0.7-1.3) H 04/03/25 03:44
eGFR 29.91 04/03/25 03:44
Glucose 143 mg/dl (70-99) H 04/03/25 03:44
Calcium 8.5 mg/dl (8.4-10.2) 04/03/25 03:44
Phosphorus 5.7 mg/dl (2.5-4.5) H 04/03/25 03:44
Dzj-V-Gdkmwlnlpcc Pept 6110 pg/ml 04/02/25 04:35
Albumin 3.6 g/dl (3.5-5.0) 04/01/25 13:47
Physical Exam
General no acute distress
HEENT no cephalic atraumatic extraocular muscle intact no scleral icterus no JVD neck supple
lungs coarse bilateral
heart regular S1-S2 positive
abdomen soft nontender positive bowel sounds
extremities edema bilateral
Neurologically nonfocal alert and oriented x 3
Skin no lesions no abrasions no petechiae
Psych normal affect no bizarre behavior
Data Reviewed
-
Radiology: Image Personally Visualized and interpreted
CT Scan: Image Personally Visualized and interpreted
Labs: Labs Reviewed by me, Discussed with Nurse and Discussed with Patient
Assessment/Plan
-
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
presents with cardiac arrest. Patient was here in the hospital going for an echo that was ordered as an outpatient. He follows with g[employer] ia/ilo intelligence support, Dr. Raymon Calero, last saw him in the office on 10/14/2024. Due to his history of chronic HFpEF, an
echo was ordered for him which is why he was here today. While walking through the hospital lobby, he collapsed and had no pulse.
Renal consultation for acute kidney injury with creatinine increasing from normal baseline. Significantly hypotension. Was on pressor support briefly. Was intubated and then extubated rather quickly.
Takes furosemide regularly outpatient. He has not noticed any significant weight gain prior to admission.
Impression.
Acute kidney injury likely hemodynamic mediated early ATN.
CHF new ejection fraction 40 to 45% from 60% April 2024
Status post cardiac arrest.
Atrial fibrillation rate controlled.
CAD status post CABG.
Plan.
Creatinine normal baseline increased to 2.2 72 hours postcardiac arrest.
Patient nonoliguric
Lasix low-dose given yesterday.
Would hold Lasix today
Heart catheterization pending stability renal function.
Would allow for equilibration of the next 24 hours
Renal dose all medications for appropriate GFR until reaches steady state.
A.m. labs
--- NOTE | 2025-04-03 13:31 | W.PN.CARDCBS ---
Today's Communication / Plan
-
Transition IV to p.o. amio
Tentative plan for left heart cath on Sunday pending improvement in his renal function
Impression / Plan
-
PCP: Dr. Mona Jeryr
Card: Dr. VANESSA Calero
Impression:
Admitted with out of hospital cardiac arrest 04/01/25
Out of hospital cardiac arrest with CPR, AED shocks, external shocks and ROSC 04/01/25
collapsed in the main lobby of the hospital while there to register for an echo
VF
Possible acute on chronic HFpEF
CXR shows pulmonary edema 04/01/25
Permanent Afib
Chronic Eliquis OAC
cRBBB
s/p tissue AVR for severe 04/06/2011
CAD s/p CABG with SVG to PDA 04/06/2011
HTN
Dyslipidemia
Morbid obesity
Hypothyroidism
Echo 04/30/2024: EF 65 to 70%, moderate concentric LVH, mild MS peak/mean 13/5 mmHg, mild MR, well-seated tissue AVR with peak/mean 45/29 mmHg, mild TR with PAP 41 mmHg
Patient had an [id number] cardiac arrest while in the main lobby registering for outpatient testing and cardiology responded for the overhead call of a code and is now consulted. Patient saw Dr. Gavin in the office on 10/14/2024 and felt that he
was doing well from a cardiac standpoint although there was some concern for bioprosthetic AVR dysfunction, plan was to check an outpatient echo. Patient presented to [facility] main lobby today to register for his outpatient echo and while walking
through the vestibule to reach the lobby he collapsed, a bystander reports patient was walking and then was suddenly on the ground. Situation was recognized situation was recognized, CPR started, AED applied, shock advised and given, CPR resumed
AED advised another shock which was given, and that time additional personnel arrived and patient was placed on heart monitor that showed VF, patient shocked using external defibrillator, a total of 3 rounds of epi was given, patient then with
asystole and was given additional CPR then VF and then another shock and since then has been in A-fib with his chronic RBBB. During this patient was also intubated and was found to have blood in his mouth prior to intubation. Patient was
stabilized transferred to a stretcher and moved to the ER.
Plan:
-Extubate, awake and alert following OOH VT/VF cardiac arrest
-Rate controlled permanent AFib on review of telemetry, no ventricular ectopy seen
-Transition amio from IV to PO 400mg TID
-Add back home nebivolol at a lower dose, 2.5 mg daily
-Eventual LHC and ICD prior to discharge. Would like to see improvement in his renal function prior to coronary angiography.
-Heparin gtt for now. Eliquis on hold pending the above procedures.
Progress Note - [employer] Supervisor
Subjective
Date of Service: April 03, 2025
No acute overnight events. Extubated yesterday but remains in the medical ICU. No cardiac complaints today.
Objective
Labs:
04/03/25 03:44
Labs
Hgb 9.4 g/dL (13.0-18.0) L 04/03/25 03:44
Hct 28.0 % (39.0-52.0) L 04/03/25 03:44
Plt Count 112 10^3/uL (130-400) L D 04/03/25 03:44
PT 17.9 Sec (11.4-14.6) H 04/02/25 04:35
INR 1.42 04/02/25 04:35
APTT 34.3 Sec (23.4-35.0) 04/02/25 04:35
Sodium 139 mmol/L (135-145) 04/03/25 03:44
Potassium 5.2 mmol/L (3.5-5.1) H 04/03/25 03:44
BUN 43 mg/dl (9-20) H 04/03/25 03:44
Creatinine 2.2 mg/dL (0.7-1.3) H 04/03/25 03:44
Glucose 143 mg/dl (70-99) H 04/03/25 03:44
Troponins
04/01/25 04/01/25 04/02/25
13:47 18:21 01:03
Troponin I 0.067 H* 1.040 H* D 1.200 H*
04/02/25
04:35
Troponin I 0.865 H* D
Vital Signs and I&O:
Vital Signs
Temp Pulse Resp BP Pulse Ox
98.5 F 86 20 132/62 94
04/03/25 12:00 04/03/25 11:57 04/03/25 11:57 04/03/25 11:17 04/03/25 11:57
Vital Signs
Temp Pulse Resp BP Pulse Ox
98.5 F 86 20 132/62 94
04/03/25 12:00 04/03/25 11:57 04/03/25 11:57 04/03/25 11:17 04/03/25 11:57
Intake & Output
04/01/25 04/02/25 04/03/25 04/04/25
06:59 06:59 06:59 06:59
Intake Total 3416.3 / 3579.2 1677.1 / 1693.8 233.5 / 233.5
Output Total 550 / 580 1020 / 1050 120 / 120
Balance 2866.3 / 2999.2 657.1 / 643.8 113.5 / 113.5
Physical Exam
Physical Exam
Gen: NAD, AAOx3
HEENT: NC/AT, sclera anicteric
Neck: No JVD
CV: Irregularly irregular, NL s1/s2
Lungs: Scattered rhonchi, on midflow O2
Abd: S/ND
Ext: Trace LE edema
Skin: Warm, dry
Neuro: Non-focal
[2025-04-03 14:18] LABS: B.E. -5.2 mmol/L; HCO3 19.9 mmol/L (21-28); Hematocrit 26.5 % (39.0-52.0); Hemoglobin 9.0 g/dL (13.0-18.0); Mean Corp Hgb Conc. 34.0 g/dL (33.0-37.0); Mean Corpuscular Volume 85.5 fL (80.0-94.0); O2 Saturation % 98.2 % (94-98); PCO2 36 mmHg (35-48); PO2 81 mmHg (83-108); Platelet Count 117 10^3/uL (130-400); Red Cell Dist. Width 15.9 % (11.5-14.5)
[2025-04-03 14:29] LABS: APTT 36.8 Sec (23.4-35.0)
--- NOTE | 2025-04-03 15:24 | VATNOTE ---
repositioned PICC per protocol after 1st CXR; awaiting results of 2nd CXR.
[2025-04-03] MEDS: HEPARIN 25000 UNITS/250 ML IV (15:55)
[2025-04-03] MEDS: PACERONE 400 MG TUBE ×2 (15:56→21:23)
[2025-04-03 17:21] LABS: Glucose - Point of Care 144 mg/dl (70-99)
--- NOTE | 2025-04-03 18:11 | CON.ID ---
Consultation
-
Date/Time Consultation Requested: March
Date/Time Consultation Performed: March
Performing Provider: Kamla Mcgill MD
Reason for Consultation: pneumonia
Chief Complaint / Past History
Chief Complaint
cough,sputum,shortness of breath
History of Present Illness
While waiting for ECHO here at hospital patient suffered cardiac arrest in waiting area with bystander CPR with subsequent successful ACLS. Patient is currently in ICU with pneumonia, awake and alert
Past History
Past Medical History: Arrhythmias, CAD (chronic bronchitis, AV replacement, dental problems,), CHF, HTN (BPH,morbid obesity), Hypercholesterolemia and Hypothyroidism
Past Surgical History: Cholecystectomy and Tonsilectomy (cataract surgery, dental surgery)
Allergy History:
enoxaparin (From Lovenox) Allergy (Verified 03/02/22 11:22)
Rash
Penicillins Allergy (Verified 03/02/22 16:01)
swelling and redness at site; tolerated cephalexin
Medications Reviewed: Yes
Social History
Tobacco: Former Smoker
Alcohol: None
Drug: None
Personal:
Living: With Family
Employment: Retired
Family History
Family History: Not Pertinent
Review of Systems
Review of Systems
Cardiovascular: Dyspnea and Edema
Respiratory: Cough and Sputum Production (hronic bronchiitis)
Genital / Urological: Other (BPH)
Endocrine: Other (hypothyroid)
All systems: All other systems were reviewed and were negative
Vital Signs
Temp Pulse Resp BP Pulse Ox
98.4 F 76 18 167/76 94
04/03/25 15:45 04/03/25 14:30 04/03/25 14:30 04/03/25 15:56 04/03/25 14:30
Physical Exam
Physical Exam
Constitutional: No Acute Distress, Well Developed, Comfortable, Acutely Ill, Chronically Ill, Non-toxic and Obese
Head: Normocephalic
Eyes: Pupils Equal, Pupils Round, No Conjunctival Hemorrhage and Sclera Anicteric
Pharynx: Benign
Oral: Poor Dentition, No Thrush and No Ulcers
Cardiovascular: Regular Rate
Pulmonary: Other (coarse breath sounds with diminished breath sounds at both bases)
Gastrointestinal: Soft, Non Tender and Decreased Bowel Sounds (entral adiposity)
Genito-Urinary: Clear Urine
Extremities: Edema, Calf Swelling and Pulses
Skin: Warm and Dry
Wound: None
Neurological: Awake, Alert, Oriented, AO x 3 and No Motor Deficits
Psychological: Calm (conversant, appropriate, cooperative,pleasant)
Lines: CVP
Lab / Diagnostic Study Results
04/03/25 14:07
04/03/25 03:44
Abs Immat Gran (auto) 0.2 10^3/uL (0-0.05) H 04/01/25 13:47
Absolute Neuts (auto) 13.0 10^3/uL (1.4-6.5) H 04/01/25 13:47
Absolute Lymphs (auto) 1.1 10^3/uL (1.2-3.4) L 04/01/25 13:47
Absolute Monos (auto) 0.5 10^3/uL (0.1-0.6) 04/01/25 13:47
Absolute Basos (auto) 0.0 10^3/uL (0-0.2) 04/01/25 13:47
Immature Gran % 1.5 % (0-0.5) H 04/01/25 13:47
Neutrophils % 87.0 % (42.2-75.2) H 04/01/25 13:47
Lymphocytes % 7.3 % (20.5-51.1) L 04/01/25 13:47
Monocytes % 3.1 % (1.7-9.3) 04/01/25 13:47
Eosinophils % 0.8 % (0-6) 04/01/25 13:47
Basophils % 0.3 % (0-2) 04/01/25 13:47
PT 17.9 Sec (11.4-14.6) H 04/02/25 04:35
INR 1.42 04/02/25 04:35
Lactic Acid 1.9 mmol/L (0.7-2.0) 04/01/25 18:21
Ur Squamous Epith Cells 3-5 /LPF (Few) 04/01/25 16:49
Microbiology Results
Micro:
04/01/25 16:55 Blood Culture - Preliminary
Blood/Venous No Growth in 48 hours- Final report to follow
04/02/25 02:47 Respiratory Culture - Preliminary
Endotracheal Usual Respiratory Gerri
Gram Stain - Preliminary
04/01/25 16:51 MRSA Screen - Final
Nose No Methicillin Resistant Staphylococcus aureus isolated.
04/01/25 22:19 Blood Culture - Preliminary
Blood/Venous No Growth in 24 hours- Final report to follow
04/02/25 14:45 Respiratory Syncytial Virus Ag - Final
Nasalpharynx Negative for Respiratory Syncytial Virus.
A false negative result may be obtained with a specimen
collected early in the acute phase. If symptoms persist, a
new specimen should be tested.
04/02/25 11:48 Influenza Types A & B (TIMA) - Final
Nasal Swab Negative for Influenza A & B, NAAT
Negative results must be combined with clinical observations
and patient history.
Nucleic Acid Amplification test (NAAT)performed on the
[employer] platform.
04/01/25 16:49 Legionella Urinary Antigen - Final
Urine Negative for Legionella pneumophila Serogroup 1 antigen.
A negative result does not rule out the possiblity of
Legionella infection due to other serogroups or species of
Legionella. Clinical correlation is recommended.
Streptococcus pneumoniae Antigen (M - Final
Negative for Streptococcus pneumoniae antigen.
A negative result does not exclude infection with
Streptococcus pneumoniae. Clinical correlation is
recommended.
Assessment / Plan
1. Admitted with cardiac arrest with successful ACLS and ICU admission
2. CAD with bypass history,Chronic AF
3.AV replacement ,CHF with chronic edema,HTN,hld
4.History of chronic bronchitis and chronic cough
5. possible aspiration pneumonia associated with cardiac arrest
6. Morbid obesity with BMi 49.3
7. Dental issues with missing teeth and failed dental implant wth retained screw
8.BPH
9. Hypothyroid
10 Leukocyosis with left shift with blood cultures wih NGTD/ MRSA negative,sputum cultures and respiratory surveys negative
Patient currently on empiric antibiotic with Unasyn with Cefepime discontinued
Care Review
Total Time Spent with Patient (in minutes): family
[2025-04-03] MEDS: REMOVE LIDOCAINE PATCH 1 PATCH REMOVE (20:10)
--- NOTE | 2025-04-03 20:15 | PTCARENOTE ---
Received patient AAOx3, following commands, reporting discomfort with coughing. PERRLA 2 mm, Q4h neurochecks ongoing. Anxious and forgetful. Afib 80s, BP stable, normothermic, +1 generalized anasarca. Weak pedal pulses b/l. On 12 liters midflow,
lung sounds coarse and diminished throughout with crackles. Saturating 94%. Abdomen soft, round, hypoactive bowel sounds. Right nare DHT at 70 cm, jevity 1.5 at 40 ml and 25 ml flush. Hull thermistor in place draining yellow urine. Sore on lip. IV
team notified to remove left fem TLC, left radial marcell removed. Right DL PICC patent, WNL. Heparin gtt ongoing per order. Repositioned, call allen within reach.
[2025-04-03 20:45] VITALS: BP 151/88
[2025-04-03 21:00] VITALS: BP 140/97
[2025-04-03] MEDS: ROBITUSSIN 200 MG TUBE (21:22)
[2025-04-03 22:00] VITALS: BP 154/92
[2025-04-03 22:15] VITALS: PULSE 2; PULSE 80
--- NOTE | 2025-04-03 22:15 | VATNOTE ---
right hand infiltrate from last blanca much improved per PCN who observed site last blanca. She stated less red and less swollen.
[2025-04-03 22:37] LABS: APTT 64.1 Sec (23.4-35.0)
[2025-04-03 23:26] LABS: Glucose - Point of Care 188 mg/dl (70-99)
[2025-04-04] VITALS (19 sets, daily range): BP systolic 112–159; BP diastolic 78–96; PULSE 89; O2SAT 95; BMI 49.9
--- NOTE | 2025-04-04 00:14 | PTCARENOTE ---
Patient was on bipap 09/11, 12 liters for about an hour or so before asking to be put back on midflow. Will attempt bipap again later. Heparin gtt increased per protocol, next PTT 0500. Otherwise patient assessment unchanged from previous. Call allen
within reach.
[2025-04-04] MEDS: TYLENOL ORAL SOLUTION 650 MG TUBE ×3 (01:09→15:18)
[2025-04-04] MEDS: UNASYN IV ×4 (01:09→22:28)
--- NOTE | 2025-04-04 04:00 | PTCARENOTE ---
Patient given dilaudid for chest soreness, otherwise assessment unchanged from previous. Call allen within reach.
[2025-04-04] MEDS: DILAUDID 0.5 MG IV (04:33)
[2025-04-04 05:06] LABS: Hematocrit 27.2 % (39.0-52.0); Hemoglobin 9.1 g/dL (13.0-18.0); Mean Corp Hgb Conc. 33.5 g/dL (33.0-37.0); Mean Corpuscular Volume 85.8 fL (80.0-94.0); Platelet Count 134 10^3/uL (130-400); Red Cell Dist. Width 16.0 % (11.5-14.5)
[2025-04-04 05:20] LABS: APTT 58.3 Sec (23.4-35.0)
[2025-04-04 05:36] LABS: Glucose - Point of Care 183 mg/dl (70-99)
[2025-04-04] MEDS: SYNTHROID 150 MCG TUBE (05:39)
[2025-04-04] MEDS: NOVOLOG FLEXPEN-MODERATE RESISTANCE 1 UNITS SC (05:39)
--- NOTE | 2025-04-04 05:48 | W.PN.HOSP.TC ---
Today's Communication/Plan
-
Medically stable for downgrade to IMU
cont NPO as per speech
Lasix as per Nephro
Rate Rhythm control as per Cardio
Eventual Cath pending improvement Kidney Function
Abx as per ID
PT/OT
Assessment / Plan
Assessment / Plan
Physical Exam
General: no acute distress, appears comfortable, Obese
HEENT: pinpoint pupils b/l, normocephalic, atraumatic, moist mucus membranes, NGT in place
Respiratory: Clear to auscultation b/l
Cardiac: S1/S2 and Regular Rhythm, no murmurs rubs or gallops
GI: Soft, nontender, hypoactive bowel sounds.
Musculoskeletal: venous stasis discoloration lower ext's b/l
Skin: Warm and Dry
Neuro: AOx3 conversant coherent
Mr. Pierre Khanna is a 80 yo man with hx CAD s/p CABG, aortic valve replacement 2010, atrial fibrillation, HTN, HLD, hypothyroidism presents to the ER after transported from main lobby where he had a witnessed cardiac arrest. Patient received
immediate CPR by bystander, received 15 minutes ACLS including 2 shocks for VT/VF, 300mg amiodarone and 3 doses of IV Epinephrine. Patient had a lot of blood in mouth during intubation since resolved.
Cardiac Arrest
Cardiogenic Shock
Coronary Artery Disease
Hx CABG
Acute Heart Failure mid-range Ejection Fraction
-ICU admit
-patient s/p 2 shocks for VT/VF, IV Epi x 3, currently on amiodarone gtt
-s/p intubation later extubated 04/02 to BIPAP weaned off to midflow 12L
-speech eval
-weaned off pressors
-Lay Out Carpenter Consult appreciated stress dose steroids tapered
-Cardiology consult appreciated eventual LHC and ICD prior to discharge pending neuro recovery, home bystolic resumed reduce dose
-hep gtt if cleared to start as per ICU
-CT Head appreciated no acute abn's
-EEG appreciated no sz activity, Moderately abnormal EEG for age due to moderately diffuse bihemispheric slowing
-Neurology consult appreciated
-ECHO appreciated EF 40-45% decreased from previous ECHO EF 65%
-Lasix briefly held d/t JAMES however appears to be cardiorenal at this time, 100 mg lasix ordered 04/04 as per Nephro, monitor output
#Prediabetes A1c 5.8
#Steroid induced hyperglycemia
Sliding scale
#White Count Elevation
#Concern for aspiration PNA
#Right hand/arm Swelling at IV site reported Unasyn infiltration overnight
trend WBC
Follow cultures
ID eval appreciated cont unasyn
JAMES
Metabolic Acidosis
Mild Hyperkalemia
-brief bicarb gtt as per ICU completed
-monitor renal function
-Cr trended up to 2.2
-Nephro eval requested
Atrial Fibrillation
-IV amiodarone gtt switched to PO
-hep gtt
Hx Aortic Valve replacement
Essential HTN
home Bystolic resumed reduce dose as per Cardio
Lasix as per Nephro
monitor and titrate antihypertensive regimen as necessary
Stage 1 right middle flank pressure injury, POA
local wound care
#Hyperlipidemia
#Mild Transaminitis likely 2/2 liver injury d/t cardiac arrest as above
Hold statin pending improvement LFTs
Hypothyroidism
home Synthroid resumed
DVT PPx SCD heparin subq
FULL CODE
Medically stable for downgrade to IMU
I spent a total of 50 minutes with the patient or on the floor. More than 50% of this time involved counseling and coordination of care.
Anticipated Discharge: > 48 hours
Subjective/Interval History
-
Date of Service: April 04, 2025
Seen and examined at bedside in no acute distress sitting up comfortably in chair. Overall reports feeling well. stable respiratory status on 10L, weaning down on oxygen requirement.
Objective Data
-
Labs:
Laboratory Results
04/03/25 04/04/25 04/04/25
22:19 04:46 11:45
WBC 14.3 H
Hgb 9.1 L
Hct 27.2 L
Plt Count 134
APTT 64.1 H 58.3 H Pending
Sodium Pending
Potassium Pending
Chloride Pending
Carbon Dioxide Pending
BUN Pending
Creatinine Pending
Glucose Pending
Calcium Pending
Vital Signs:
Vital Signs
Temp Pulse Resp BP Pulse Ox
98.6 F 68 20 144/93 94
04/04/25 03:08 04/04/25 05:00 04/04/25 05:00 04/04/25 05:00 04/04/25 05:00
I&O
04/02/25 04/03/25 04/04/25
06:59 06:59 06:59
Intake Total 3416.3 / 3579.2 1677.1 / 1693.8 1540.6 / 1540.6
Output Total 550 / 580 1020 / 1050 1045 / 1045
Balance 2866.3 / 2999.2 657.1 / 643.8 495.6 / 495.6
[2025-04-04 05:59] LABS: Blood Urea Nitrogen 60 mg/dl (9-20); Calcium 7.9 mg/dl (8.4-10.2); Carbon Dioxide 19 mmol/L (22-30); Chloride 109 mmol/L (98-107); Estimated Creatinine Clearance 29 ml/min; Glucose 177 mg/dl (70-99); Magnesium 2.5 mg/dl (1.6-2.3); Potassium 4.6 mmol/L (3.5-5.1); Sodium 141 mmol/L (135-145); Triglycerides 128 mg/dl (10-149); eGFR 21.47
[2025-04-04] MEDS: LIDOCAINE 4% PATCH 1 PATCH TOPICAL (07:29)
[2025-04-04] MEDS: MIRALAX 17 GRAMS TUBE (07:30)
[2025-04-04] MEDS: SOLU-MEDROL PF 40 MG IV ×2 (07:30→20:04)
[2025-04-04] MEDS: PACERONE 400 MG TUBE ×3 (07:30→22:28)
[2025-04-04] MEDS: ROBITUSSIN 200 MG TUBE ×4 (07:30→22:28)
--- NOTE | 2025-04-04 07:30 | PTCARENOTE ---
Received pt awake and alert. He has an intermittent moist non-productive cough. He was encouraged to expectorate into tissue. He was also instructed on the importance of using the incentive spirometer to optimize oxygenation while tapering oxygen to
meet his needs. Lungs diminished. Orthopneic. Right DL PICC with Heparin @ 1300units/hr. Good doppler DP/PT pulses. Good radial pulses. Morbidly obese. Right nare DHT secured 70cm and tolerating Jevity 1.5ml/hr. Temperature sensing Hull catheter
with yellow urine. Sacral silicone border dressing CDI. Heels elevated on pillows. Protective foam intact on his left heel. Very weak L/E strength. Right hand demarkation intact, swelling improved, old infiltrate. Scattered bruising from prior
phlebotomies. Left femoral gauze dressing CDI secured with tegaderm. Safe environment maintained. Supportive care given.
[2025-04-04] MEDS: DUONEB 3 ML INH ×3 (08:16→19:17)
[2025-04-04] MEDS: PULMICORT 0.5 MG INH ×2 (08:16→19:17)
--- NOTE | 2025-04-04 08:28 | W.PN.INTV ---
Today's Communication / Plan
Recommendations
Continue midflow nasal cannula, weaning down supplemental O2 flow rate as tolerated
prn BiPAP
Give another dose of Lasix today and monitor intake/output
Nephrology consulted, recs appreciated
Antibiotics
Follow-up cultures
Heparin drip
Tentative left heart catheterization on Sunday
Trend LFTs and when transaminases improve then start high intensity statin
Continue amiodarone, now switched from IV to PO
Patient stable for downgrade out of ICU to IMU. Pulmonary service will continue to follow along.
Assessment
-
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
dermatitis who presents with cardiac arrest. Patient was here in the hospital going for an echo that was ordered as an outpatient. He follows with vp hr diversity, Dr. Raymon Calero, last saw him in the office on 10/14/2024. Due to his history of
chronic HFpEF, an echo was ordered for him which is why he was here today. While walking through the hospital lobby, he collapsed and had no pulse. There was approximately 5 minutes or so before CPR was started. He was noted to have blood coming
out of his mouth and when he was finally intubated, there was frequent suctioning of straight blood coming from the endotracheal tube. The monitor was placed and he was found to be in V-fib and he was shocked. Epinephrine x 3 was given. Patient
was shocked for a total of 2 times. Also given amiodarone and then was transferred to the ER for further stabilization. Due to hypotension, Levophed was started. CT head showed no evidence of an acute intracranial abnormality and CTA chest showed
no evidence of any PE or an acute aortic dissection, and there was evidence of pulmonary edema and pneumonia. Initial temperature 97.2 �F. Initial pulse rate 139, respiratory rate 20, BP 79/49 and he was saturating 92% via ventilator. Initial
labs pertinent for mild leukocytosis to 14.9, Hb 10.7, INR 1.39, initial lactate 2.4, initial troponin 0.067, and proBNP 1550. Patient was then transferred to the ICU and Clinic Physician Director services consulted for additional management/recommendations.
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
Impression:
#Cardiac arrest with shockable rhythm with shock x2 and epi x3 s/p ROSC (reported downtime about 15 minutes)
#Ventilator dependent respiratory failure (intubated 04/01/2025, extubated 04/02/2025)
#Acute decompensated heart failure/acute HFmrEF
#Circulatory shock likely due to sepsis - shock state resolved as of 04/02
#Pneumonia/aspiration pneumonia
#Elevated troponin likely due to NSTEMI versus demand ischemia
#Chronic anemia
#Morbid obesity
#Chronic venous stasis dermatitis
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
#Pulmonary hypertension
#Chronic A-fib with RBBB
#Hypothyroidism
#Hyperlipidemia
#Hypertension
Plan:
- s/p TTM - stopped early as he woke up, following commands, and was extubated on 04/02
- He continues to be awake and alert
- Scheduled tylenol DC'd
- CT head showed no acute intracranial pathology
- Consulted neurology - recs appreciated
- s/p EEG on 04/01/2025 - given that he was following commands, EEG was stopped
- Continue antibiotics with Unasyn for aspiration; follow-up blood cultures and respiratory culture (both show NGTD); MRSA swab negative
- COVID swab, flu swab + RSV all negative
- Amiodarone drip changed to PO amio; cardiology on board
- Patient was extubated on 04/02/2025
- Continue midflow nasal cannula with BiPAP as needed
- Keep SpO2 >90-94%
- Continue aspiration precautions; keep HOB >30-45�
- prn nebulized bronchodilators � not currently bronchospastic
- He was wheezing after extubation, and could have been a cardiac wheeze --> started solumedrol with budesonide and Duonebs, and as of 04/03 his wheezing has resolved
- Start weaning Solu-Medrol today to 40mg IV q12hr
- Although he has an JAMES, continue with IV lasix given I still have concern for fluid overload based on his recent BNP and CXR
- Re-check CXR again tomorrow
- Diurese as Cr tolerates; re-assess daily
- Nephrology on board, and recs appreciated
- Echo checked on 04/01 showing moderate concentric LVH, with an LVEF of 40-45% with normal RV size, with suspected mildly reduced RV systolic function, with moderate bioprosthetic aortic valve stenosis with peak/mean gradients of 34/22 mmHg, and
PASP 38 mmHg
- Troponin peaked at 1.21 04/02/2025 � no longer need to continue trending at this time
- No active bleeding seen --> given his initial VT/VF arrest with suspected coronary ischemia, continue heparin gtt --> if he develops hemoptysis on heparin gtt, then will need to take a look via bronch
- Hold off on starting statin given elevated LFTs - continue to trend LFTs
- Maintain net negative fluid balance as tolerated
- Cardiology consulted; given that he has recovered neurologically, he will need a ischemic evaluation and possibly ICD for secondary prevention -tentative LHC on Sunday depending on sCr
- Maintain MAP>65
- Remains off vasopressors as of 04/02
- Random cortisol is 36.4 - -> no need for stress dose steroids at this time
- Replete electrolytes with K>4, Mg>2
- Maintain euglycemia with goal BG 140-180; check A1C
- Trend H/H and transfuse if needed to keep Hb>7-8g/dL; keep plt>50k
- Early nutrition - continue tube feeds given he was unable to work with JANITOR CUSTODIAN given his SOB; JANITOR CUSTODIAN to re-eval him
- Stress ulcer prophylaxis - no longer needed
- DVT ppx: continue heparin gtt; of note, he possibly bit his tongue after he collapsed
Lines:
PICC line
Dobhoff tube
Patient stable for downgrade out of ICU to IMU. Pulmonary service will continue to follow along.
Data:
CTA chest/abdomen/pelvis with contrast 04/01/2025:
Significantly limited examination secondary to motion artifact, the large body habitus, and the patient's arms down position.
No CTA evidence for an acute central pulmonary thromboembolus. Evaluation of the bilateral segmental and subsegmental pulmonary arteries is nondiagnostic.
Bilateral airspace opacities most suspicious for multifocal pneumonia, less likely alveolar pulmonary edema given the distribution.
Cardiomegaly.
Secondary findings suggesting a degree of right heart failure.
Superiorly displaced fracture at the superior endplate of L1, which appears acute and is new compared to the previous CT abdomen/pelvis. New distraction of L1-L2 intervertebral disc space.
CXR 04/02/2025:
Diminished lung volumes. Increased pulmonary parenchymal opacities, left greater than right, as described. Possible considerations include pulmonary edema, aspiration, pneumonia, and/or atelectasis.
Probable small left pleural effusion has developed.
Stable endotracheal tube. Nasogastric tube place, extending into the stomach.
CXR 04/03/2025:
Bilateral airspace opacities throughout both lungs, which appears slightly improved from most recent radiograph.
Interval removal of endotracheal tube.
Total time spent today was 38 minutes for this encounter. Time includes reviewing laboratory test/imaging results, reviewing pertinent medical records, obtaining and reviewing medical history, performing an appropriate exam, ordering medications,
tests and procedures. Time also includes documentation of this encounter, coordinating patient care and communicating with other healthcare professionals. Total time does not include separately billed tests performed on this date of service.
Subjective Dataa
Subjective Data
Date of Service:
Date of Service: April 04, 2025
Chief Complaint: Clinic Physician Director Follow Up
Subjective:
Patient was seen and evaluated today bedside. Wore BiPAP yesterday off and on at 12/5 cmH2O and was removed finally at 11 PM. This morning he was sitting in the chair in no acute distress, saturating 94% on 10 L/min midflow nasal cannula with
heart rate 87 and BP 112/79. He still has a cough with clear phlegm being produced. Says at home he does not have a cough and he has frequent throat clearing. He feels that his shortness of breath is improved.
Review of Systems
General: Other (Negative unless mentioned above)
Objective Data
Data Reviewed
Vital Signs / I&O / Oxygen:
Vital Signs
Temp Pulse Resp BP Pulse Ox
98.4 F 85 19 143/89 94
04/04/25 07:24 04/04/25 09:00 04/04/25 09:00 04/04/25 09:00 04/04/25 09:00
Intake and Output
04/03/25 04/04/25 04/05/25
06:59 06:59 06:59
Intake Total 1677.1 / 1693.8 1638.6 / 1736.6 434 / 434
Output Total 1020 / 1050 1075 / 1075
Balance 657.1 / 643.8 563.6 / 661.6 434 / 434
SaO2 [CPAP/PSV] 93
SaO2 [A/C] 94
SaO2 94
Nasal Cannula flow liters per 12
minute
Physical Exam
General: Respiratory Distress (negative), Comfortable, Chills (negative) and Sweats (negative)
HEENT: Normocephalic, Anicteric and Other (Thick neck)
Cardiovascular: Irregular Rhythm (Irregularly irregular) and Peripheral Edema (+2 lower extremity pitting edema bilaterally)
Respiratory: Wheeze (negative), Crackles (Bilateral), Rhonchi (negative), Non-Labored Respirations and Stridor (negative)
GI: Soft, Distended (Abdominal obesity), Non Tender, Normal Bowel Sounds and Other (Sedated)
Neurology: Awake, Alert, Oriented and Tremors (negative)
Skin: Warm, Dry, Cyanosis (negative) and Jaundice (negative)
Labs/Micro/Reports
Lab Data
04/04/25 04:46
04/04/25 04:46
Laboratory Results
04/03/25 04/03/25 04/04/25
14:07 22:19 04:46
APTT 36.8 H 64.1 H 58.3 H
pH 7.35
pCO2 36
pO2 81 L
HCO3 19.9 L
O2 Delivery Level Not Reportable
Microbiology
04/01/25 22:19 Blood/Venous Blood Culture - Preliminary
No Growth in 48 hours- Final report to follow
04/01/25 16:55 Blood/Venous Blood Culture - Preliminary
No Growth in 48 hours- Final report to follow
04/02/25 02:47 Endotracheal Respiratory Culture - Preliminary
Usual Respiratory Gerri
04/02/25 02:47 Endotracheal Gram Stain - Preliminary
04/01/25 16:51 Nose MRSA Screen - Final
No Methicillin Resistant Staphylococcus aureus isolated.
04/02/25 14:45 Nasalpharynx Respiratory Syncytial Virus Ag - Final
Negative for Respiratory Syncytial Virus.
A false negative result may be obtained with a specimen
collected early in the acute phase. If symptoms persist, a
new specimen should be tested.
04/02/25 11:48 Nasal Swab Influenza Types A & B (TIMA) - Final
Negative for Influenza A & B, NAAT
Negative results must be combined with clinical observations
and patient history.
Nucleic Acid Amplification test (NAAT)performed on the
[employer] platform.
04/01/25 16:49 Urine Legionella Urinary Antigen - Final
Negative for Legionella pneumophila Serogroup 1 antigen.
A negative result does not rule out the possiblity of
Legionella infection due to other serogroups or species of
Legionella. Clinical correlation is recommended.
04/01/25 16:49 Urine Streptococcus pneumoniae Antigen (M - Final
Negative for Streptococcus pneumoniae antigen.
A negative result does not exclude infection with
Streptococcus pneumoniae. Clinical correlation is
recommended.
--- NOTE | 2025-04-04 08:29 | W.PN.ID1 ---
Date of Service
Date of Service: April 04, 2025
Today's Communication
Continue antibiotics.
Assessment / Plan
Aspiration pneumonia
Leukocytosis
JAMES (CR = 2.9; Est CrCl= 29)
S/p cardiac arrest; successful ACLS
CAD
CHF
HTN
HLD
Hx AVR
Morbid obesity (BMI = 49)
Hx BPH
Hypothyroidism
Recommendations:
Continue with Unasyn (d#3)
Given worsening renal function, decrease dosing to every 12 hours
Follow white count and temperature curve.
Reported 'PCN allergy' but tolerating Unasyn. Will remove allergy from list.
Chief Complaint
-: Leukocytosis and Pneumonia
Subjective / Review of Systems
Patient seen and examined. Reports some cough and sputum production, although cannot quantify amount of sputum nor appearance. Reports breathing is comfortable. Some chest pain with cough.
Vital Signs / Physical Exam
Vital Signs
Vital Signs
Temp Pulse Resp BP Pulse Ox
98.4 F 78 22 151/93 96
04/04/25 07:24 04/04/25 08:20 04/04/25 08:20 04/04/25 07:30 04/04/25 08:20
Physical Exam
Constitutional: Comfortable, Non-toxic and Obese
Eyes: Sclera Anicteric
Cardiovascular: S1/S2; Negative S3/S4
Pulmonary: Wheezes, Coarse and Non Labored
Gastrointestinal: Soft, Non Distended and Normal Bowel Sounds
Extremities: Edema; Negative Cyanosis or Erythema
Skin: Warm and Dry; Negative Rash or Jaundice
Neurological: Awake and Alert
Psychological: Calm
Objective Data
Lab Data
Lab Results
04/04/25 04:46
04/04/25 04:46
PT 17.9 Sec (11.4-14.6) H 04/02/25 04:35
INR 1.42 04/02/25 04:35
APTT 58.3 Sec (23.4-35.0) H 04/04/25 04:46
Estimated Creat Clear 29 ml/min 04/04/25 04:46
Lactic Acid 1.9 mmol/L (0.7-2.0) 04/01/25 18:21
Total Bilirubin 0.9 mg/dl (0.2-1.3) 04/01/25 13:47
AST 241 U/L (17-59) H 04/01/25 13:47
ALT 224 U/L (0-50) H 04/01/25 13:47
Alkaline Phosphatase 120 U/L (38-126) 04/01/25 13:47
Most recent labs reviewed.
Micro Results:
04/01/25 22:19 Blood Culture - Preliminary
Blood/Venous No Growth in 48 hours- Final report to follow
04/01/25 16:55 Blood Culture - Preliminary
Blood/Venous No Growth in 48 hours- Final report to follow
04/02/25 02:47 Respiratory Culture - Preliminary
Endotracheal Usual Respiratory Gerri
Gram Stain - Preliminary
04/01/25 16:51 MRSA Screen - Final
Nose No Methicillin Resistant Staphylococcus aureus isolated.
04/02/25 14:45 Respiratory Syncytial Virus Ag - Final
Nasalpharynx Negative for Respiratory Syncytial Virus.
A false negative result may be obtained with a specimen
collected early in the acute phase. If symptoms persist, a
new specimen should be tested.
04/02/25 11:48 Influenza Types A & B (TIMA) - Final
Nasal Swab Negative for Influenza A & B, NAAT
Negative results must be combined with clinical observations
and patient history.
Nucleic Acid Amplification test (NAAT)performed on the
[employer] platform.
04/01/25 16:49 Legionella Urinary Antigen - Final
Urine Negative for Legionella pneumophila Serogroup 1 antigen.
A negative result does not rule out the possiblity of
Legionella infection due to other serogroups or species of
Legionella. Clinical correlation is recommended.
Streptococcus pneumoniae Antigen (M - Final
Negative for Streptococcus pneumoniae antigen.
A negative result does not exclude infection with
Streptococcus pneumoniae. Clinical correlation is
recommended.
Imaging:
04/03/2025 CXR (portable): Patchy parenchymal opacity involving the right lung, greater in the upper lobe. Findings appear stable.
Chest X-Ray: Image Reviewed and Report Reviewed
--- NOTE | 2025-04-04 10:16 | W.PN.CARDCBS ---
Today's Communication / Plan
-
No ventricular ectopy on telemetry. Continue PO amio. Add back BB.
Eventual LHC pending improvement in his renal function
Impression / Plan
-
PCP: Dr. Mona Jerry
Card: Dr. VANESSA Calero
Impression:
Admitted with out of hospital cardiac arrest 04/01/25
Out of hospital cardiac arrest with CPR, AED shocks, external shocks and ROSC 04/01/25
collapsed in the main lobby of the hospital while there to register for an echo
VF
Possible acute on chronic HFpEF
CXR shows pulmonary edema 04/01/25
Permanent Afib
Chronic Eliquis OAC
cRBBB
s/p tissue AVR for severe 04/06/2011
CAD s/p CABG with SVG to PDA 04/06/2011
HTN
Dyslipidemia
Morbid obesity
Hypothyroidism
Echo 04/30/2024: EF 65 to 70%, moderate concentric LVH, mild MS peak/mean 13/5 mmHg, mild MR, well-seated tissue AVR with peak/mean 45/29 mmHg, mild TR with PAP 41 mmHg
Patient had an [id number]-[id number] cardiac arrest while in the main lobby registering for outpatient testing and cardiology responded for the overhead call of a code and is now consulted. Patient saw Dr. Gavin in the office on 10/14/2024 and felt that he
was doing well from a cardiac standpoint although there was some concern for bioprosthetic AVR dysfunction, plan was to check an outpatient echo. Patient presented to [facility] main lobby today to register for his outpatient echo and while walking
through the vestibule to reach the lobby he collapsed, a bystander reports patient was walking and then was suddenly on the ground. Situation was recognized situation was recognized, CPR started, AED applied, shock advised and given, CPR resumed
AED advised another shock which was given, and that time additional personnel arrived and patient was placed on heart monitor that showed VF, patient shocked using external defibrillator, a total of 3 rounds of epi was given, patient then with
asystole and was given additional CPR then VF and then another shock and since then has been in A-fib with his chronic RBBB. During this patient was also intubated and was found to have blood in his mouth prior to intubation. Patient was
stabilized transferred to a stretcher and moved to the ER.
Plan:
-Extubate, awake and alert following OOH VT/VF cardiac arrest
-Rate controlled permanent AFib on review of telemetry, no ventricular ectopy seen
-Continue amiodarone PO 400mg TID
-Add back home nebivolol at a lower dose, 2.5 mg daily
-Eventual LHC and ICD prior to discharge. Would like to see improvement in his renal function prior to coronary angiography.
-Heparin gtt for now. Eliquis on hold pending the above procedures.
-Will defer diuretic dosing to nephrology
Discussed with nursing
Progress Note - Learning And Development Officer
Subjective
Date of Service: April 04, 2025
NAOE. Resting comfortably in bed this AM. No cardiac complaints.
Objective
Labs:
04/04/25 04:46
04/04/25 04:46
Labs
Hgb 9.1 g/dL (13.0-18.0) L 04/04/25 04:46
Hct 27.2 % (39.0-52.0) L 04/04/25 04:46
Plt Count 134 10^3/uL (130-400) 04/04/25 04:46
PT 17.9 Sec (11.4-14.6) H 04/02/25 04:35
INR 1.42 04/02/25 04:35
APTT 58.3 Sec (23.4-35.0) H 04/04/25 04:46
Sodium 141 mmol/L (135-145) 04/04/25 04:46
Potassium 4.6 mmol/L (3.5-5.1) 04/04/25 04:46
BUN 60 mg/dl (9-20) H 04/04/25 04:46
Creatinine 2.9 mg/dL (0.7-1.3) H 04/04/25 04:46
Glucose 177 mg/dl (70-99) H 04/04/25 04:46
Troponins
04/01/25 04/01/25 04/02/25
13:47 18:21 01:03
Troponin I 0.067 H* 1.040 H* D 1.200 H*
04/02/25
04:35
Troponin I 0.865 H* D
Vital Signs and I&O:
Vital Signs
Temp Pulse Resp BP Pulse Ox
98.4 F 85 19 143/89 94
04/04/25 07:24 04/04/25 09:00 04/04/25 09:00 04/04/25 09:00 04/04/25 09:00
Vital Signs
Temp Pulse Resp BP Pulse Ox
98.4 F 85 19 143/89 94
04/04/25 07:24 04/04/25 09:00 04/04/25 09:00 04/04/25 09:00 04/04/25 09:00
Intake & Output
04/02/25 04/03/25 04/04/25 04/05/25
06:59 06:59 06:59 06:59
Intake Total 3416.3 / 3579.2 1677.1 / 1693.8 1638.6 / 1736.6 434 / 434
Output Total 550 / 580 1020 / 1050 1075 / 1075
Balance 2866.3 / 2999.2 657.1 / 643.8 563.6 / 661.6 434 / 434
Physical Exam
Physical Exam
Gen: NAD, AAOx3
HEENT: NC/AT, sclera anicteric, NG tube in place
Neck: Difficult to assess JVD
CV: irregularly irregular, NL s1/s2
Lungs: No increased WOB on midflow O2
Abd: S/ND
Ext: Trace LE edema
Skin: Warm, dry
Neuro: Non-focal
[2025-04-04] MEDS: HEPARIN 25000 UNITS/250 ML IV (11:27)
[2025-04-04] MEDS: BYSTOLIC 2.5 MG PO (11:28)
--- NOTE | 2025-04-04 11:35 | W.PN.NEPH.PH ---
Today's Communication / Plan
-
lasix 100mg now
Assessment/Plan
-
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
presents with cardiac arrest. Patient was here in the hospital going for an echo that was ordered as an outpatient. He follows with health care technician, Dr. Raymon Calero, last saw him in the office on 10/14/2024. Due to his history of chronic HFpEF, an
echo was ordered for him which is why he was here today. While walking through the hospital lobby, he collapsed and had no pulse.
Renal consultation for acute kidney injury with creatinine increasing from normal baseline. Significantly hypotension. Was on pressor support briefly. Was intubated and then extubated rather quickly.
Takes furosemide regularly outpatient. He has not noticed any significant weight gain prior to admission.
Impression.
Acute kidney injury likely hemodynamic mediated early ATN.
CHF new ejection fraction 40 to 45% from 60% April 2024
Status post cardiac arrest.
Atrial fibrillation rate controlled.
CAD status post CABG.
Plan.
Creatinine normal baseline increased to 2.2 72 hours postcardiac arrest.
Patient nonoliguric though orthopnic/ Chr cuco Pulm edema
Heart catheterization pending stability renal function.
Would allow for equilibration of the next 24 hours
Renal dose all medications for appropriate GFR until reaches steady state.
A.m. labs
lasix 100mg now
d/w ICU team

33 min cc time
-
-
Date of Service: April 04, 2025
CC / HPI / ROS
-
Chief Complaint:
sob
History of Present Illness:
JAMES in setting of cardiorenal/hypotension
Review of Systems:
SOB/orthopnia
nonoliguric
Labs
-
Labs:
WBC 14.3 10^3/uL (4.8-10.8) H 04/04/25 04:46
RBC 3.17 10^6/uL (4.70-6.10) L 04/04/25 04:46
Hgb 9.1 g/dL (13.0-18.0) L 04/04/25 04:46
Hct 27.2 % (39.0-52.0) L 04/04/25 04:46
Plt Count 134 10^3/uL (130-400) 04/04/25 04:46
Sodium 141 mmol/L (135-145) 04/04/25 04:46
Potassium 4.6 mmol/L (3.5-5.1) 04/04/25 04:46
Chloride 109 mmol/L (98-107) H 04/04/25 04:46
Carbon Dioxide 19 mmol/L (22-30) L 04/04/25 04:46
BUN 60 mg/dl (9-20) H 04/04/25 04:46
Creatinine 2.9 mg/dL (0.7-1.3) H 04/04/25 04:46
eGFR 21.47 04/04/25 04:46
Glucose 177 mg/dl (70-99) H 04/04/25 04:46
Calcium 7.9 mg/dl (8.4-10.2) L 04/04/25 04:46
Phosphorus 5.4 mg/dl (2.5-4.5) H 04/04/25 04:46
Mam-J-Abyniljcitc Pept 95048 pg/ml 04/04/25 04:46
Albumin 3.6 g/dl (3.5-5.0) 04/01/25 13:47
Physical Exam
-
Vital Signs:
Vital Signs
Temp Pulse Resp BP Pulse Ox
98.3 F 91 19 144/82 94
04/04/25 11:10 04/04/25 11:28 04/04/25 09:00 04/04/25 11:28 04/04/25 09:00
[2025-04-04] MEDS: NOVOLOG FLEXPEN-MODERATE RESISTANCE 3 UNITS SC ×3 (12:16→23:23)
[2025-04-04] MEDS: LASIX 100 MG IV (12:17)
[2025-04-04 12:25] LABS: Glucose - Point of Care 213 mg/dl (70-99)
--- NOTE | 2025-04-04 12:55 | PTCARENOTE ---
Bin lift to get pt OOB to the chair. He required 15 liters midflow to maintain pulse ox >90%. Tachypneic. He is using the IS to 750ml's. Moist cough, mostly non-productive.
[2025-04-04 13:08] LABS: APTT 59.0 Sec (23.4-35.0)
--- NOTE | 2025-04-04 16:12 | CHAP ---
Mr. Khanna was sitting in the chair, in good spirits. He shared the story of his experience in the lobby, and waking up in ICU. He praised the staff. He declined prayer, but expressed appreciation for the visit.
--- NOTE | 2025-04-04 17:26 | PTOTSP ---
ST Re-Evaluation/Follow-Up
Pt continues to present with clinical signs of suspected pharyngeal dysphagia in the setting of recent emergent intubation s/p cardiac arrest and current DHT presence. Pt also commented that he feels like he has things 'go down the wrong pipe' a bit
more often than others as of more recently prior to this hospitalization. Pt would benefit from an instrumental swallow study next week for more objective information.
Recommendations:
- NPO; continue DHT; ARHP - small quantities of small sips/ice chips PRN - cough when needed (don't hold back).
- Aspiration precautions: HOB upright as often as possible; oral care q4 hours.
- OIL REFINERY OPERATOR to f/u on Sunday to re-assess pt's candidacy for PO intake and/or determine pt's readiness for an instrumental swallow study (VFSS or FEES).
[2025-04-04 17:49] LABS: Glucose - Point of Care 213 mg/dl (70-99)
--- NOTE | 2025-04-04 18:23 | PTCARENOTE ---
Bin lift back to bed. Lungs dim in the bases. Coughing with deep breathing. Pt only used IS when instructed to use it. I have countless times throughout the day implored him to use the IS and also encouraged him to use it to prevent worsening PNA
and other consequences of non-compliance.
[2025-04-04] MEDS: REMOVE LIDOCAINE PATCH 1 PATCH REMOVE (20:05)
[2025-04-04 20:31] LABS: APTT 82.9 Sec (23.4-35.0)
--- NOTE | 2025-04-04 23:20 | PTCARENOTE ---
Addendum entered by Rena Schuler RN 04/05/25 01:31:
0000: pt started with a inc WOB, inc coughing and unable to catch his breath. Respiratory was called for a DuoNeb. BiPap was trialed but not tolerated. Mid flow was inc to 12L.
0130: Pt was observed to have inc WOB with use of abd muscles and a pulse ox in the low 90s. Provider was contact and came to assess the pt. Pt was placed on BiPap. Pt was hesitant but did agree.
Original Note:
Pt care assumed by this RN. Pt talkative and appropriate. Heart pillow resting on chest, utilized with coughing. Pt encouraged to utilize IS, pt unenthusiastic about the instruction. IV placed in the left arm, pt was hesitant but calm during
insertion. Pt enjoying watching a movie on the TV. Call allen with in reach, bed in the lowest position with HOB @ 30deg, monitor in place, all alarms audible and active.
[2025-04-04 23:33] LABS: Glucose - Point of Care 242 mg/dl (70-99)
[2025-04-05] VITALS (17 sets, daily range): BP systolic 106–163; BP diastolic 67–104; PULSE 2–98; O2SAT 93; BMI 51.0
[2025-04-05] MEDS: DUONEB 3 ML INH ×3 (00:08→20:11)
[2025-04-05 00:20] LABS: Glucose - Point of Care 235 mg/dl (70-99)
--- NOTE | 2025-04-05 01:45 | W.PN.UPDATE ---
Update Note
Progress Note Update
0130 Asked to see pt for increased WOB. Had episode of coughing, using accessory muscles, stridor?
Background: 80 yo male who is post cardiac arrest 04/01. extubated 04/02/25. BNP today 10,900 CXR with pulm edema. Received 100mg iv lasix today. RN reprts UOP was good post lasix iv though has slowed. solis with clear urine.
At bedside pt aaox3. Denies SOB. Appears in NO resp distress at this time. No stridor heard. Discussed trying bipap- initially he did not wish to put it on. Stated 'look at me-i am breathing fine.' Explained that we are trying to keep him from any
respiratory complications. Agreeable to use bipap for an hour (though reluctantly). Also encouranged IS useage while awake.
[2025-04-05 02:04] LABS: APTT 98.6 Sec (23.4-35.0)
[2025-04-05] MEDS: HEPARIN 25000 UNITS/250 ML IV ×2 (02:26→19:42)
[2025-04-05 05:38] LABS: Glucose - Point of Care 237 mg/dl (70-99)
[2025-04-05 05:39] LABS: Hematocrit 27.9 % (39.0-52.0); Hemoglobin 9.2 g/dL (13.0-18.0); Mean Corp Hgb Conc. 33.0 g/dL (33.0-37.0); Mean Corpuscular Volume 86.9 fL (80.0-94.0); Platelet Count 168 10^3/uL (130-400); Red Cell Dist. Width 16.5 % (11.5-14.5)
[2025-04-05] MEDS: SYNTHROID 150 MCG TUBE (06:03)
[2025-04-05] MEDS: NOVOLOG FLEXPEN-MODERATE RESISTANCE 3 UNITS SC (06:03)
--- NOTE | 2025-04-05 06:28 | W.PN.HOSP.TC ---
Addendum entered and electronically signed by Wade Lam MD 04/05/25 17:58:
correction to documentation. Do not anticipate discharge today. Anticipated discharge >48h.
Original Note:
Today's Communication/Plan
-
NPO, ongoing speech eval
lasix diuresis as per nephro
cont abx as per ID
Wean O2 supplementation as tolerated
PT/OT
Rate Rhythm Control as per Cardio, eventual Heart Cath and ICD placement
steroid taper as per Pulm
Glycemic control
Assessment / Plan
Assessment / Plan
Physical Exam
General: no acute distress, Obese
HEENT: pinpoint pupils b/l, normocephalic, atraumatic, moist mucus membranes, NGT in place
Respiratory: Clear to auscultation b/l, on 10L, belly breathing noted but otherwise appears comfortable conversant
Cardiac: S1/S2 and Regular Rhythm, no murmurs rubs or gallops
GI: Soft, nontender, hypoactive bowel sounds.
Musculoskeletal: venous stasis discoloration lower ext's b/l
Skin: Warm and Dry
Neuro: AOx3 conversant coherent
Mr. Pierre Khanna is a 80 yo man with hx CAD s/p CABG, aortic valve replacement 2010, atrial fibrillation, HTN, HLD, hypothyroidism presents to the ER after transported from [facility] where he had a witnessed cardiac arrest. Patient received
immediate CPR by bystander, received 15 minutes ACLS including 2 shocks for VT/VF, 300mg amiodarone and 3 doses of IV Epinephrine. Patient had a lot of blood in mouth during intubation since resolved.
VT/VF cardiac arrest
Cardiogenic Shock
Coronary Artery Disease
Hx CABG
Acute Heart Failure mid-range Ejection Fraction
Acute Respiratory Failure
-ICU admit
-patient s/p 2 shocks for VT/VF, IV Epi x 3, currently on amiodarone gtt
-s/p intubation later extubated 04/02 to BIPAP weaned off to midflow
-speech eval appreciated cont NPO
-weaned off pressors
-Crisis Specialist Consult appreciated stress dose steroids tapered to IV Solu-medrol 40 mg Q12
-Cardiology consult appreciated eventual LHC and ICD prior to discharge pending neuro recovery, home bystolic resumed reduce dose
-cont hep gtt
-CT Head appreciated no acute abn's
-EEG appreciated no sz activity, Moderately abnormal EEG for age due to moderately diffuse bihemispheric slowing
-Neurology consult appreciated
-ECHO appreciated EF 40-45% decreased from previous ECHO EF 65%
#Prediabetes A1c 5.8
#Steroid induced hyperglycemia
Sliding scale
3U Q6H Novolog (hold when off tube feeds)
monitor and titrate insulin regimen as necessary.
#White Count Elevation
#Steroid induced Leukocytosis
#Concern for aspiration PNA
#Right hand/arm Swelling at IV site reported Unasyn infiltration overnight
trend WBC
Follow cultures
ID eval appreciated cont Unasyn
JAMES likely cardiorenal
Metabolic Acidosis
Mild Hyperkalemia
-brief bicarb gtt as per ICU completed
-monitor renal function
-Cr trended up to peak 2.9 improving with aggressive diuresis as per Nephro
-Nephro eval appreciated
Atrial Fibrillation
-IV amiodarone gtt switched to PO Amiodarone 400 mg TID, cont as per cardio
-hep gtt
Hx Aortic Valve replacement
Essential HTN
home Bystolic resumed reduced dose as per Cardio
Lasix as per Nephro
monitor and titrate antihypertensive regimen as necessary
Stage 1 right middle flank pressure injury, POA
local wound care
#Hyperlipidemia
#Mild Transaminitis likely 2/2 liver injury d/t cardiac arrest as above
Transaminitis significant improved/resolving
home statin resumed
Hypothyroidism
cont home Synthroid
DVT PPx SCD Hep gtt
FULL CODE
PT/OT appreciated SNF rehab
04/03/25 Discussed with patient's brother Kev who reports concern with patient 'hoarding.' Patient's apt 'unlivable' with no AC as per patient's brother.
Medically stable for downgrade to IMU
I spent a total of 50 minutes with the patient or on the floor. More than 50% of this time involved counseling and coordination of care.
Anticipated Discharge: Today
Subjective/Interval History
-
Date of Service: April 05, 2025
No acute distressr. Saturating well on 10L, reports overall feeling well. Denies SOB though appears to be belly breathing, otherwise appears comfortable sitting up in chair.
Objective Data
-
Labs:
Laboratory Results
04/04/25 04/05/25 04/05/25
20:03 01:41 05:20
WBC 17.1 H
Hgb 9.2 L
Hct 27.9 L
Plt Count 168 D
APTT 82.9 H 98.6 H
Sodium Pending
Potassium Pending
Chloride Pending
Carbon Dioxide Pending
BUN Pending
Creatinine Pending
Glucose Pending
Calcium Pending
Total Bilirubin Pending
AST Pending
ALT Pending
Alkaline Phosphatase Pending
Vital Signs:
Vital Signs
Temp Pulse Resp BP Pulse Ox
98.4 F 81 17 129/82 97
04/05/25 03:07 04/05/25 03:30 04/05/25 03:30 04/05/25 02:00 04/05/25 03:30
I&O
04/03/25 04/04/25 04/05/25
06:59 06:59 06:59
Intake Total 1677.1 / 1693.8 1638.6 / 1736.6 2686 / 2686
Output Total 1020 / 1050 1075 / 1125 3743 / 3743
Balance 657.1 / 643.8 563.6 / 611.6 -1057 / -1057
[2025-04-05 06:32] LABS: ALT (SGPT) 74 U/L (0-50); AST (SGOT) 35 U/L (17-59); Albumin 3.9 g/dl (3.5-5.0); Alkaline Phosphatase 106 U/L (38-126); Blood Urea Nitrogen 62 mg/dl (9-20); Calcium 7.4 mg/dl (8.4-10.2); Carbon Dioxide 16 mmol/L (22-30); Chloride 115 mmol/L (98-107); Estimated Creatinine Clearance 34 ml/min; Glucose 189 mg/dl (70-99); Magnesium 2.5 mg/dl (1.6-2.3); Potassium 4.3 mmol/L (3.5-5.1); Sodium 144 mmol/L (135-145); Total Protein 6.2 g/dl (6.3-8.2); eGFR 25.65
[2025-04-05] MEDS: PACERONE 400 MG TUBE ×3 (07:20→21:45)
[2025-04-05] MEDS: BYSTOLIC 2.5 MG TUBE (07:22)
[2025-04-05] MEDS: ROBITUSSIN 200 MG TUBE ×4 (07:23→21:45)
[2025-04-05] MEDS: MIRALAX 17 GRAMS TUBE (07:23)
[2025-04-05] MEDS: LIDOCAINE 4% PATCH 1 PATCH TOPICAL (07:23)
[2025-04-05] MEDS: SOLU-MEDROL PF 40 MG IV ×2 (07:23→19:41)
--- NOTE | 2025-04-05 07:34 | W.PN.ID1 ---
Date of Service
Date of Service: April 05, 2025
Today's Communication
Continue Unasyn for today.
Assessment / Plan
Aspiration pneumonia
Leukocytosis
JAMES (CR = 2.5; Est CrCl= 34)
S/p cardiac arrest; successful ACLS
CAD
CHF
HTN
HLD
Hx AVR
Morbid obesity (BMI = 49)
Hx BPH
Hypothyroidism
Recommendations:
Continue with Unasyn (d#4)
Follow white count and temperature curve.
Reported 'PCN allergy' but tolerating Unasyn. Have removed PCN from allergy list.
Chief Complaint
-: Leukocytosis and Pneumonia
Subjective / Review of Systems
Patient seen and examined. Patient reports some increased work of breathing today. Reports cough.
Review of Systems: No Fever
Vital Signs / Physical Exam
Vital Signs
Vital Signs
Temp Pulse Resp BP Pulse Ox
98.4 F 86 25 148/87 97
04/05/25 03:07 04/05/25 07:22 04/05/25 07:00 04/05/25 07:22 04/05/25 07:00
Physical Exam
Constitutional: Comfortable, Non-toxic and Obese
Eyes: Sclera Anicteric
Cardiovascular: S1/S2; Negative S3/S4
Pulmonary: Wheezes, Coarse and Non Labored
Gastrointestinal: Soft, Non Distended and Normal Bowel Sounds
Extremities: Edema; Negative Cyanosis or Erythema
Skin: Warm and Dry; Negative Rash or Jaundice
Neurological: Awake and Alert
Psychological: Calm
Objective Data
Lab Data
Lab Results
04/02/25 04/03/25 04/04/25 04/05/25
14:07 04:46 05:20
WBC 18.6 H 13.8 H 14.3 H 17.1 H
04/05/25 05:20
04/05/25 05:20
PT 17.9 Sec (11.4-14.6) H 04/02/25 04:35
INR 1.42 04/02/25 04:35
APTT 98.6 Sec (23.4-35.0) H 04/05/25 01:41
Estimated Creat Clear 34 ml/min 04/05/25 05:20
Lactic Acid 1.9 mmol/L (0.7-2.0) 04/01/25 18:21
Total Bilirubin 1.1 mg/dl (0.2-1.3) 04/05/25 05:20
AST 35 U/L (17-59) 04/05/25 05:20
ALT 74 U/L (0-50) H 04/05/25 05:20
Alkaline Phosphatase 106 U/L (38-126) 04/05/25 05:20
Most recent labs reviewed.
Micro Results:
04/01/25 22:19 Blood Culture - Preliminary
Blood/Venous No Growth in 72 hours- Final report to follow
04/01/25 16:55 Blood Culture - Preliminary
Blood/Venous No Growth in 72 hours- Final report to follow
04/02/25 02:47 Respiratory Culture - Final
Endotracheal Usual Respiratory Gerri
Gram Stain - Final
04/01/25 16:51 MRSA Screen - Final
Nose No Methicillin Resistant Staphylococcus aureus isolated.
04/02/25 14:45 Respiratory Syncytial Virus Ag - Final
Nasalpharynx Negative for Respiratory Syncytial Virus.
A false negative result may be obtained with a specimen
collected early in the acute phase. If symptoms persist, a
new specimen should be tested.
04/02/25 11:48 Influenza Types A & B (TIMA) - Final
Nasal Swab Negative for Influenza A & B, NAAT
Negative results must be combined with clinical observations
and patient history.
Nucleic Acid Amplification test (NAAT)performed on the
[employer] NOW platform.
04/01/25 16:49 Legionella Urinary Antigen - Final
Urine Negative for Legionella pneumophila Serogroup 1 antigen.
A negative result does not rule out the possiblity of
Legionella infection due to other serogroups or species of
Legionella. Clinical correlation is recommended.
Streptococcus pneumoniae Antigen (M - Final
Negative for Streptococcus pneumoniae antigen.
A negative result does not exclude infection with
Streptococcus pneumoniae. Clinical correlation is
recommended.
Imaging:
04/04/2025 CXR (portable): Mild cardiomegaly noted. Median sternotomy wires in place. AVR noted. Prominence of the interstitial compartment, with cephalization of the pulmonary vasculature.
04/03/2025 CXR (portable): Patchy parenchymal opacity involving the right lung, greater in the upper lobe. Findings appear stable.
Chest X-Ray: Image Reviewed and Report Reviewed
[2025-04-05] MEDS: PULMICORT 0.5 MG INH ×2 (07:44→20:11)
[2025-04-05] MEDS: LASIX 100 MG IV (08:57)
[2025-04-05] MEDS: UNASYN IV ×2 (09:07→21:45)
--- NOTE | 2025-04-05 09:33 | W.PN.CARDCBS ---
Today's Communication / Plan
-
Left heart cath when renal function stabilizes and O2 requirement improves
Impression / Plan
-
PCP: Dr. Mona Jerry
Card: Dr. VANESSA Calero
Impression:
Admitted with out of hospital cardiac arrest 04/01/25
Out of hospital cardiac arrest with CPR, AED shocks, external shocks and ROSC 04/01/25
collapsed in the main lobby of the hospital while there to register for an echo
VF
Possible acute on chronic HFpEF
CXR shows pulmonary edema 04/01/25
Permanent Afib
Chronic Eliquis OAC
cRBBB
s/p tissue AVR for severe 04/06/2011
CAD s/p CABG with SVG to PDA 04/06/2011
HTN
Dyslipidemia
Morbid obesity
Hypothyroidism
Echo 04/30/2024: EF 65 to 70%, moderate concentric LVH, mild MS peak/mean 13/5 mmHg, mild MR, well-seated tissue AVR with peak/mean 45/29 mmHg, mild TR with PAP 41 mmHg
Patient had an [id number] cardiac arrest while in the main lobby registering for outpatient testing and cardiology responded for the overhead call of a code and is now consulted. Patient saw Dr. Gavin in the office on 10/14/2024 and felt that he
was doing well from a cardiac standpoint although there was some concern for bioprosthetic AVR dysfunction, plan was to check an outpatient echo. Patient presented to [facility] main lobby today to register for his outpatient echo and while walking
through the vestibule to reach the lobby he collapsed, a bystander reports patient was walking and then was suddenly on the ground. Situation was recognized situation was recognized, CPR started, AED applied, shock advised and given, CPR resumed
AED advised another shock which was given, and that time additional personnel arrived and patient was placed on heart monitor that showed VF, patient shocked using external defibrillator, a total of 3 rounds of epi was given, patient then with
asystole and was given additional CPR then VF and then another shock and since then has been in A-fib with his chronic RBBB. During this patient was also intubated and was found to have blood in his mouth prior to intubation. Patient was
stabilized transferred to a stretcher and moved to the ER.
Plan:
-Extubated, awake and alert following OOH VT/VF cardiac arrest
-Rate controlled permanent AFib on review of telemetry, no ventricular ectopy seen
-Continue amiodarone PO 400mg TID
-Home nebivolol started back at a lower dose, 2.5 mg daily
-Eventual LHC and ICD prior to discharge. Would like to see improvement in his renal function and O2 requirement prior to coronary angiography.
-Heparin gtt for now. Eliquis on hold pending the above procedures.
-Will defer diuretic dosing to nephrology
Progress Note - Maintenance [employer]
Subjective
Date of Service: April 05, 2025
No acute overnight events. Resting comfortably in bed in the medical ICU. No cardiac complaints.
Objective
Labs:
04/05/25 05:20
04/05/25 05:20
Labs
Hgb 9.2 g/dL (13.0-18.0) L 04/05/25 05:20
Hct 27.9 % (39.0-52.0) L 04/05/25 05:20
Plt Count 168 10^3/uL (130-400) D 04/05/25 05:20
PT 17.9 Sec (11.4-14.6) H 04/02/25 04:35
INR 1.42 04/02/25 04:35
APTT 98.6 Sec (23.4-35.0) H 04/05/25 01:41
Sodium 144 mmol/L (135-145) 04/05/25 05:20
Potassium 4.3 mmol/L (3.5-5.1) 04/05/25 05:20
BUN 62 mg/dl (9-20) H 04/05/25 05:20
Creatinine 2.5 mg/dL (0.7-1.3) H 04/05/25 05:20
Glucose 189 mg/dl (70-99) H 04/05/25 05:20
Vital Signs and I&O:
Vital Signs
Temp Pulse Resp BP Pulse Ox
98.4 F 84 20 106/84 94
04/05/25 03:07 04/05/25 08:57 04/05/25 07:53 04/05/25 08:57 04/05/25 09:19
Vital Signs
Temp Pulse Resp BP Pulse Ox
98.4 F 84 20 106/84 94
04/05/25 03:07 04/05/25 08:57 04/05/25 07:53 04/05/25 08:57 04/05/25 09:19
Intake & Output
04/03/25 04/04/25 04/05/25 04/06/25
06:59 06:59 06:59 06:59
Intake Total 1677.1 / 1693.8 1638.6 / 1736.6 2686 / 2686 140 / 140
Output Total 1020 / 1050 1075 / 1125 3743 / 3743 150 / 150
Balance 657.1 / 643.8 563.6 / 611.6 -1057 / -1057 -10 / -10
Physical Exam
Physical Exam
Gen: NAD, AAOx3
HEENT: NC/AT, sclera anicteric, NG tube in place
Neck: No JVD
CV: Irregularly irregular, NL s1/s2
Lungs: Scattered rhonchi on mid flow O2
Abd: S/ND
Ext: 1+ LE edema
Skin: Warm, dry
Neuro: Non-focal
--- NOTE | 2025-04-05 11:05 | W.PN.PUL3 ---
Today's Communication / Plan
-
Continue diuresis --> now on 80 mg Lasix IV BID
Nephrology following
Trend UOP, sCr
Heparin gtt
If creatinine stable then tomorrow may be getting left heart catheterization; will need ICD prior to discharge for secondary prevention
Keep NPO past midnight with holding TF just in case he goes for [facility] tomorrow
Continue midflow nasal cannula, weaning down O2 as tolerated
prn BiPAP
Aspiration precautions
Abx
NPO per COAGULATING BATH OPERATOR - will need VFSS tomorrow if stable
Trend LFTs and when transaminases improve then start high intensity statin
Continue amiodarone, now switched from IV to PO
Given high oxygen requirements, Pulmonary service will continue to follow along
Assessment
-
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
dermatitis who presents with cardiac arrest. Patient was here in the hospital going for an echo that was ordered as an outpatient. He follows with rivet hole machine operator, Dr. Raymon Calero, last saw him in the office on 10/14/2024. Due to his history of
chronic HFpEF, an echo was ordered for him which is why he was here today. While walking through the hospital lobby, he collapsed and had no pulse. There was approximately 5 minutes or so before CPR was started. He was noted to have blood coming
out of his mouth and when he was finally intubated, there was frequent suctioning of straight blood coming from the endotracheal tube. The monitor was placed and he was found to be in V-fib and he was shocked. Epinephrine x 3 was given. Patient
was shocked for a total of 2 times. Also given amiodarone and then was transferred to the ER for further stabilization. Due to hypotension, Levophed was started. CT head showed no evidence of an acute intracranial abnormality and CTA chest showed
no evidence of any PE or an acute aortic dissection, and there was evidence of pulmonary edema and pneumonia. Initial temperature 97.2 �F. Initial pulse rate 139, respiratory rate 20, BP 79/49 and he was saturating 92% via ventilator. Initial
labs pertinent for mild leukocytosis to 14.9, Hb 10.7, INR 1.39, initial lactate 2.4, initial troponin 0.067, and proBNP 1550. Patient was then transferred to the ICU and Railroad Inspector services consulted for additional management/recommendations.
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
Impression:
#Cardiac arrest with shockable rhythm with shock x2 and epi x3 s/p ROSC (reported downtime about 15 minutes)
#Ventilator dependent respiratory failure (intubated 04/01/2025, extubated 04/02/2025)
#Acute decompensated heart failure/acute HFmrEF
#Circulatory shock likely due to sepsis - shock state resolved as of 04/02
#Pneumonia/aspiration pneumonia
#Elevated troponin likely due to NSTEMI versus demand ischemia
#Chronic anemia
#Morbid obesity
#Chronic venous stasis dermatitis
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
#Pulmonary hypertension
#Chronic A-fib with RBBB
#Hypothyroidism
#Hyperlipidemia
#Hypertension
Plan:
- s/p TTM - stopped early as he woke up, following commands, and was extubated on 04/02
- He continues to be awake and alert
- Scheduled tylenol DC'd
- CT head showed no acute intracranial pathology
- Consulted neurology - recs appreciated
- s/p EEG on 04/01/2025 - given that he was following commands, EEG was stopped
- Continue antibiotics with Unasyn for aspiration; follow-up blood cultures and respiratory culture (both show NGTD); MRSA swab negative
- COVID swab, flu swab + RSV all negative
- Amiodarone drip changed to PO amio; cardiology on board
- Patient was extubated on 04/02/2025
- Continue midflow nasal cannula with BiPAP as needed
- Keep SpO2 >90-94%, weaning down midflow O2 flow rate as tolerated
- Continue aspiration precautions; keep HOB >30-45�
- prn nebulized bronchodilators � not currently bronchospastic
- He was wheezing after extubation, and could have been a cardiac wheeze --> started solumedrol with budesonide and Duonebs, and as of 04/03 his wheezing has resolved
- Started weaning Solu-Medrol on 04/04 to 40mg IV q12hr --> tomorrow would change to prednisone taper
- Although he has an JAMES, continue with IV lasix given I still have concern for fluid overload based on his recent BNP and CXR with continued SOB
- Occasionally check CXR (checked today which shows mild improvement in the left midlung opacification although still shows pulmonary vascular congestion with multifocal patchy opacities
- Diurese as Cr tolerates; re-assess daily
- Nephrology on board, and recs appreciated
- Echo checked on 04/01 showing moderate concentric LVH, with an LVEF of 40-45% with normal RV size, with suspected mildly reduced RV systolic function, with moderate bioprosthetic aortic valve stenosis with peak/mean gradients of 34/22 mmHg, and
PASP 38 mmHg
- Troponin peaked at 1.21 04/02/2025 � no longer need to continue trending at this time
- No active bleeding seen --> given his initial VT/VF arrest with suspected coronary ischemia, continue heparin gtt --> if he develops hemoptysis on heparin gtt, then will need to take a look via bronch
- Can likely start statin tomorrow given LFTs have greatly improved - continue to trend LFTs
- Maintain net negative fluid balance as tolerated
- Cardiology consulted; given that he has recovered neurologically, he will need an ischemic evaluation and ICD for secondary prevention -tentative C tomorrow depending on sCr
- Maintain MAP>65
- Remains off vasopressors as of 04/02
- Random cortisol is 36.4 - -> no need for stress dose steroids at this time
- Replete electrolytes with K>4, Mg>2
- Maintain euglycemia with goal BG 140-180; check A1C
- Trend H/H and transfuse if needed to keep Hb>7-8g/dL; keep plt>50k
- Early nutrition - continue tube feeds given he was unable to work with COAGULATING BATH OPERATOR given his SOB; COAGULATING BATH OPERATOR to re-eval him - will need VFSS tomorrow
- Stress ulcer prophylaxis - no longer needed
- DVT ppx: continue heparin gtt; of note, he possibly bit his tongue after he collapsed but he has no further evidence of bleeding from mouth or coughing up any blood since day of admission
Lines:
PICC line
Dobhoff tube
Given patient's high oxygen requirements, Pulmonary service will continue to follow along.
Data:
CTA chest/abdomen/pelvis with contrast 04/01/2025:
Significantly limited examination secondary to motion artifact, the large body habitus, and the patient's arms down position.
No CTA evidence for an acute central pulmonary thromboembolus. Evaluation of the bilateral segmental and subsegmental pulmonary arteries is nondiagnostic.
Bilateral airspace opacities most suspicious for multifocal pneumonia, less likely alveolar pulmonary edema given the distribution.
Cardiomegaly.
Secondary findings suggesting a degree of right heart failure.
Superiorly displaced fracture at the superior endplate of L1, which appears acute and is new compared to the previous CT abdomen/pelvis. New distraction of L1-L2 intervertebral disc space.
CXR 04/02/2025:
Diminished lung volumes. Increased pulmonary parenchymal opacities, left greater than right, as described. Possible considerations include pulmonary edema, aspiration, pneumonia, and/or atelectasis.
Probable small left pleural effusion has developed.
Stable endotracheal tube. Nasogastric tube place, extending into the stomach.
CXR 04/03/2025:
Bilateral airspace opacities throughout both lungs, which appears slightly improved from most recent radiograph.
Interval removal of endotracheal tube.
Total time spent today was 41 minutes for this encounter. Time includes reviewing laboratory test/imaging results, reviewing pertinent medical records, obtaining and reviewing medical history, performing an appropriate exam, ordering medications,
tests and procedures. Time also includes documentation of this encounter, coordinating patient care and communicating with other healthcare professionals. Total time does not include separately billed tests performed on this date of service.
Subjective Data
-
Date of Service:
Date of Service: April 05, 2025
Chief Complaint: Pulmonary Follow Up
Subjective:
Patient was seen and evaluated today at bedside. Patient's niece, Elizabeth, present at bedside. Patient says he feels similar to yesterday. Still short of breath with exertion and has chest discomfort when he coughs. Currently on 10 L/min via
midflow nasal cannula. Saturating 94% with heart rate 90 and BP 163/104. On tube feeds at 60 cc/hour. He currently denies DUNN, abdominal pain, nausea, fevers or chills.
Review of Systems
General: Other (Negative unless mentioned above)
Objective Data
Data Reviewed
Vital Signs / I&O / Oxygen:
Vital Signs
Temp Pulse Resp BP Pulse Ox
98.4 F 84 20 106/84 94
04/05/25 03:07 04/05/25 08:57 04/05/25 07:53 04/05/25 08:57 04/05/25 09:19
Intake and Output
04/04/25 04/05/25 04/06/25
06:59 06:59 06:59
Intake Total 1638.6 / 1736.6 2686 / 2686 140 / 140
Output Total 1075 / 1125 3743 / 3743 150 / 150
Balance 563.6 / 611.6 -1057 / -1057 -10 / -10
SaO2 [CPAP/PSV] 93
SaO2 [A/C] 94
SaO2 94
Nasal Cannula flow liters per 12
minute
Physical Exam
General: Respiratory Distress (negative), Comfortable, Chills (negative) and Sweats (negative)
HEENT: Normocephalic and Anicteric
Cardiovascular: Irregular Rhythm (Irregularly irregular) and Peripheral Edema (+2 lower extremity pitting edema bilaterally)
Respiratory: Wheeze (negative), Crackles (Bilateral), Rhonchi (negative) and Non-Labored Respirations
GI: Soft, Distended (Significant abdominal obesity), Non Tender and Normal Bowel Sounds
Neurology: AO x 3 and Tremors (negative)
Skin: Warm, Dry, Cyanosis (negative) and Jaundice (negative)
Labs/Micro/Reports
Lab Data
04/05/25 05:20
04/05/25 05:20
Laboratory Results
04/04/25 04/04/25 04/05/25
12:45 20:03 01:41
APTT 59.0 H 82.9 H 98.6 H
Microbiology
04/01/25 22:19 Blood/Venous Blood Culture - Preliminary
No Growth in 72 hours- Final report to follow
04/01/25 16:55 Blood/Venous Blood Culture - Preliminary
No Growth in 72 hours- Final report to follow
04/02/25 02:47 Endotracheal Respiratory Culture - Final
Usual Respiratory Gerri
04/02/25 02:47 Endotracheal Gram Stain - Final
04/01/25 16:51 Nose MRSA Screen - Final
No Methicillin Resistant Staphylococcus aureus isolated.
04/02/25 14:45 Nasalpharynx Respiratory Syncytial Virus Ag - Final
Negative for Respiratory Syncytial Virus.
A false negative result may be obtained with a specimen
collected early in the acute phase. If symptoms persist, a
new specimen should be tested.
04/02/25 11:48 Nasal Swab Influenza Types A & B (TIMA) - Final
Negative for Influenza A & B, NAAT
Negative results must be combined with clinical observations
and patient history.
Nucleic Acid Amplification test (NAAT)performed on the
[employer] platform.
04/01/25 16:49 Urine Legionella Urinary Antigen - Final
Negative for Legionella pneumophila Serogroup 1 antigen.
A negative result does not rule out the possiblity of
Legionella infection due to other serogroups or species of
Legionella. Clinical correlation is recommended.
04/01/25 16:49 Urine Streptococcus pneumoniae Antigen (M - Final
Negative for Streptococcus pneumoniae antigen.
A negative result does not exclude infection with
Streptococcus pneumoniae. Clinical correlation is
recommended.
--- NOTE | 2025-04-05 11:24 | PTCARENOTE ---
Nephro rounded, 100mg lasix given.
Acetylene Cutter/Pulm rounded, no changes in plan at this time.
Cont. w. Midflo 02 wean as tolerated.
Pt. able to stand up with PT/OT today however unable to tolerate walking to chair.
[2025-04-05] MEDS: NOVOLOG FLEXPEN-MODERATE RESISTANCE 1 UNITS SC ×3 (12:09→23:56)
[2025-04-05] MEDS: NOVOLOG FLEXPEN 3 UNITS SC ×2 (12:10→18:13)
[2025-04-05 12:20] LABS: Glucose - Point of Care 179 mg/dl (70-99)
--- NOTE | 2025-04-05 12:44 | W.PN.NEPH.PH ---
Today's Communication / Plan
-
100 mg Lasix given this morning
Ordered 80 mg IV Lasix twice daily standing order
Assessment/Plan
-
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
presents with cardiac arrest. Patient was here in the hospital going for an echo that was ordered as an outpatient. He follows with paper cone grader, Dr. Raymon Calero, last saw him in the office on 10/14/2024. Due to his history of chronic HFpEF, an
echo was ordered for him which is why he was here today. While walking through the hospital lobby, he collapsed and had no pulse.
Renal consultation for acute kidney injury with creatinine increasing from normal baseline. Significantly hypotension. Was on pressor support briefly. Was intubated and then extubated rather quickly.
Takes furosemide regularly outpatient. He has not noticed any significant weight gain prior to admission.
Impression.
Acute kidney injury likely hemodynamic mediated early ATN.
CHF new ejection fraction 40 to 45% from 60% April 2024
Status post cardiac arrest.
Atrial fibrillation rate controlled.
CAD status post CABG.
Plan.
Creatinine normal baseline
Patient nonoliguric though orthopnic/ Chr cuco Pulm edema
Left heart catheterization pending stability renal function.
Renal dose all medications for appropriate GFR until reaches steady state.
A.m. labs
Responded to 100 mg of Lasix yesterday with 3 L out
lasix 100mg again today
Creatinine improving
No indication for a Lasix drip at this time as renal function improving and responding to bolus
I will order a standing dose of 80 mg twice daily
d/w ICU team

33 min cc time
-
-
Date of Service: April 05, 2025
CC / HPI / ROS
-
Chief Complaint:
sob
History of Present Illness:
JAMES in setting of cardiorenal/hypotension
Review of Systems:
SOB/orthopnia
nonoliguric
Labs
-
Labs:
WBC 17.1 10^3/uL (4.8-10.8) H 04/05/25 05:20
RBC 3.21 10^6/uL (4.70-6.10) L 04/05/25 05:20
Hgb 9.2 g/dL (13.0-18.0) L 04/05/25 05:20
Hct 27.9 % (39.0-52.0) L 04/05/25 05:20
Plt Count 168 10^3/uL (130-400) D 04/05/25 05:20
Sodium 144 mmol/L (135-145) 04/05/25 05:20
Potassium 4.3 mmol/L (3.5-5.1) 04/05/25 05:20
Chloride 115 mmol/L (98-107) H 04/05/25 05:20
Carbon Dioxide 16 mmol/L (22-30) L 04/05/25 05:20
BUN 62 mg/dl (9-20) H 04/05/25 05:20
Creatinine 2.5 mg/dL (0.7-1.3) H 04/05/25 05:20
eGFR 25.65 04/05/25 05:20
Glucose 189 mg/dl (70-99) H 04/05/25 05:20
Calcium 7.4 mg/dl (8.4-10.2) L 04/05/25 05:20
Phosphorus 4.2 mg/dl (2.5-4.5) 04/05/25 05:20
Rns-R-Idqtxumqhub Pept 70765 pg/ml 04/04/25 04:46
Albumin 3.9 g/dl (3.5-5.0) 04/05/25 05:20
Physical Exam
-
Vital Signs:
Vital Signs
Temp Pulse Resp BP Pulse Ox
98.4 F 96 27 163/104 94
04/05/25 03:07 04/05/25 10:23 04/05/25 10:23 04/05/25 10:23 04/05/25 10:23
[2025-04-05] MEDS: LASIX 80 MG IV (16:16)
[2025-04-05] MEDS: FLOMAX 0.4 MG TUBE (18:13)
[2025-04-05 18:15] LABS: Glucose - Point of Care 190 mg/dl (70-99)
[2025-04-05] MEDS: REMOVE LIDOCAINE PATCH 1 PATCH REMOVE (20:00)
[2025-04-05] MEDS: NOVOLOG FLEXPEN SC (23:57)
[2025-04-06] VITALS (14 sets, daily range): BP systolic 122–151; BP diastolic 71–116; PULSE 2–91; BMI 49.1
--- NOTE | 2025-04-06 | PTCARENOTE ---
Received pt resting in bed, visiting with family. AAOx3. Makes needs known. BAUGH but weak. Needs encouragement with turning/repositioning and using I.S. Afib on tele, HR 80s. BP 140s/80s. +2 gen anasarca. Afebrile. DP pulses by doppler. On 10L
midflow. Pt. not willing to go on bipap at this time - will attempt again soon. Lungs diminished throughout with crackles bibasilar. Had dobhoff tube with tube feeds infusing as ordered. Around 2229, dobhoff tube clogged. Attempted multiple ways to
unclog without success. JENNIFER Harry notified and instructed to remove dobhoff. Dobhoff removed fully intact. Ordered NPO at midnight for possible cath in AM. + bowel sounds. Solis draining large amts yellow urine- see I&O. Heparin gtt at 1500units/hr
infusing. Next PTT in AM. Bathed with CHG, solis and mouth care provided. Call allen in reach
[2025-04-06 00:07] LABS: Glucose - Point of Care 173 mg/dl (70-99)
[2025-04-06] MEDS: SYNTHROID TUBE (04:14)
[2025-04-06 04:21] LABS: Hematocrit 26.4 % (39.0-52.0); Hemoglobin 8.9 g/dL (13.0-18.0); Mean Corp Hgb Conc. 33.7 g/dL (33.0-37.0); Mean Corpuscular Volume 85.2 fL (80.0-94.0); Platelet Count 154 10^3/uL (130-400); Red Cell Dist. Width 16.8 % (11.5-14.5)
[2025-04-06 04:50] LABS: APTT 76.4 Sec (23.4-35.0)
--- NOTE | 2025-04-06 04:57 | PTCARENOTE ---
Pt. wore bipap for about 1 hour then demanded it be taken off. Educated on importance but pt refused. Placed back on 10L midflow. Pt. resting overnight. No complaints at this time. AM labs drawn
[2025-04-06 05:17] LABS: Blood Urea Nitrogen 74 mg/dl (9-20); Calcium 8.7 mg/dl (8.4-10.2); Carbon Dioxide 23 mmol/L (22-30); Chloride 111 mmol/L (98-107); Estimated Creatinine Clearance 39 ml/min; Glucose 146 mg/dl (70-99); Magnesium 2.7 mg/dl (1.6-2.3); Potassium 4.6 mmol/L (3.5-5.1); Sodium 144 mmol/L (135-145); eGFR 29.91
[2025-04-06] MEDS: NOVOLOG FLEXPEN-MODERATE RESISTANCE 1 UNITS SC ×3 (05:35→22:34)
[2025-04-06 05:45] LABS: Glucose - Point of Care 158 mg/dl (70-99)
[2025-04-06] MEDS: NOVOLOG FLEXPEN SC (05:52)
[2025-04-06] MEDS: DUONEB 3 ML INH ×2 (07:27→19:49)
[2025-04-06] MEDS: PULMICORT 0.5 MG INH ×2 (07:27→19:49)
--- NOTE | 2025-04-06 07:35 | W.PN.PUL.V3 ---
Today's Communication / Plan
-
Diuresis
Wean FiO2
Eventual right and left heart catheterization
Antibiotics per infectious disease
Assessment
-
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
presents with cardiac arrest. Patient was here in the hospital going for an echo that was ordered as an outpatient. He follows with tenter feeder, Dr. Raymon Calero, last saw him in the office on 10/14/2024. Due to his history of chronic HFpEF, an
echo was ordered for him which is why he was here today. While walking through the hospital lobby, he collapsed and had no pulse. There was approximately 5 minutes or so before CPR was started. He was noted to have blood coming out of his mouth
and when he was finally intubated, there was frequent suctioning of straight blood coming from the endotracheal tube. The monitor was placed and he was found to be in V-fib and he was shocked. Epinephrine x 3 was given. Patient was shocked for a
total of 2 times. Also given amiodarone and then was transferred to the ER for further stabilization. Due to hypotension, Levophed was started. CT head showed no evidence of an acute intracranial abnormality and CTA chest showed no evidence of
any PE or an acute aortic dissection, and there was evidence of pulmonary edema and pneumonia. Initial temperature 97.2 �F. Initial pulse rate 139, respiratory rate 20, BP 79/49 and he was saturating 92% via ventilator. Initial labs pertinent for
mild leukocytosis to 14.9, Hb 10.7, INR 1.39, initial lactate 2.4, initial troponin 0.067, and proBNP 1550. Patient was then transferred to the ICU and Hard Tile Setter Apprentice services consulted for additional management/recommendations.
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
Impression:
#Cardiac arrest with shockable rhythm with shock x2 and epi x3 s/p ROSC (reported downtime about 15 minutes)
#Ventilator dependent respiratory failure (intubated 04/01/2025, extubated 04/02/2025)
#Acute decompensated heart failure/acute HFmrEF
#Circulatory shock likely due to sepsis - shock state resolved as of 04/02
#Pneumonia/aspiration pneumonia
#Elevated troponin likely due to NSTEMI versus demand ischemia
#Chronic anemia
#Morbid obesity
#Chronic venous stasis dermatitis
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
#Pulmonary hypertension
#Chronic A-fib with RBBB
#Hypothyroidism
#Hyperlipidemia
#Hypertension
Plan:
- s/p TTM - stopped early as he woke up, following commands, and was extubated on 04/02
- He continues to be awake and alert
- Scheduled tylenol DC'd
- CT head showed no acute intracranial pathology
- Consulted neurology - recs appreciated
- s/p EEG on 04/01/2025 - given that he was following commands, EEG was stopped
- Continue antibiotics with Unasyn for aspiration; follow-up blood cultures and respiratory culture (both show NGTD); MRSA swab negative
- COVID swab, flu swab + RSV all negative
- Amiodarone drip changed to PO amio; cardiology on board
- Patient was extubated on 04/02/2025
- Continue midflow nasal cannula with BiPAP as needed
- Keep SpO2 >90-94%, weaning down midflow O2 flow rate as tolerated
- Continue aspiration precautions; keep HOB >30-45�
- prn nebulized bronchodilators � not currently bronchospastic
- He was wheezing after extubation, and could have been a cardiac wheeze --> started solumedrol with budesonide and Duonebs, and as of 04/03 his wheezing has resolved
- Started weaning Solu-Medrol on 04/04/25 to 40mg IV q12hr -->Changed to prednisone 40 mg daily 04/06/2025
- Although he has an JAMES, continue with IV lasix
- Occasionally check CXR
- Diurese as Cr tolerates; re-assess daily
- Nephrology on board, and recs appreciated
- Echo checked on 04/01/25 showing moderate concentric LVH, with an LVEF of 40-45% with normal RV size, with suspected mildly reduced RV systolic function, with moderate bioprosthetic aortic valve stenosis with peak/mean gradients of 34/22 mmHg, and
PASP 38 mmHg
- Troponin peaked at 1.21 04/02/2025 � no longer need to continue trending at this time
- No active bleeding seen --> given his initial VT/VF arrest with suspected coronary ischemia, continue heparin gtt --> if he develops hemoptysis on heparin gtt, then will need to take a look via bronch
- Can likely start statin given LFTs have greatly improved - continue to trend LFTs- Will leave up to cardiology
- Maintain net negative fluid balance as tolerated
- Cardiology consulted; given that he has recovered neurologically, he will need an ischemic evaluation and ICD for secondary prevention -tentative LHC and RHC depending on sCr
- Maintain MAP>65
- Remains off vasopressors as of 04/02
- Random cortisol is 36.4 - -> no need for stress dose steroids at this time
-Follow cultures-antibiotics per infectious disease-Unasyn day #5 3 g every 6 hours
-Follow leukocytosis and temperature curve
- Replete electrolytes with K>4, Mg>2
- Maintain euglycemia with goal BG 140-180; check A1C
- Trend H/H and transfuse if needed to keep Hb>7-8g/dL; keep plt>50k
- Early nutrition - continue tube feeds given he was unable to work with DATA VIRTUALIZATION CONSULTANT given his SOB; DATA VIRTUALIZATION CONSULTANT to re-eval him - will need VFSS
- Stress ulcer prophylaxis - no longer needed
- DVT ppx: continue heparin gtt; of note, he possibly bit his tongue after he collapsed but he has no further evidence of bleeding from mouth or coughing up any blood since day of admission
Given patient's high oxygen requirements, Pulmonary service will continue to follow along.
A total of 40 minutes of critical care time was provided for this patient today. This includes management of unstable vital signs, evaluation of the patient at bedside, reviewing the patient's pertinent medical records including radiographs,
microbiology, laboratory evaluations, and discussion with primary team, consultants, pharmacy, nutrition, physical therapy, case management, charge nurse, critical care nursing, and respiratory therapy.
Data:
CTA chest/abdomen/pelvis with contrast 04/01/2025:
Significantly limited examination secondary to motion artifact, the large body habitus, and the patient's arms down position.
No CTA evidence for an acute central pulmonary thromboembolus. Evaluation of the bilateral segmental and subsegmental pulmonary arteries is nondiagnostic.
Bilateral airspace opacities most suspicious for multifocal pneumonia, less likely alveolar pulmonary edema given the distribution.
Cardiomegaly.
Secondary findings suggesting a degree of right heart failure.
Superiorly displaced fracture at the superior endplate of L1, which appears acute and is new compared to the previous CT abdomen/pelvis. New distraction of L1-L2 intervertebral disc space.
CXR 04/02/2025:
Diminished lung volumes. Increased pulmonary parenchymal opacities, left greater than right, as described. Possible considerations include pulmonary edema, aspiration, pneumonia, and/or atelectasis.
Probable small left pleural effusion has developed.
Stable endotracheal tube. Nasogastric tube place, extending into the stomach.
CXR 04/03/2025:
Bilateral airspace opacities throughout both lungs, which appears slightly improved from most recent radiograph.
Interval removal of endotracheal tube.
Subjective Data
-
Date of Service:
Date of Service: April 06, 2025
Chief Complaint: Pulmonary Follow Up and Dyspnea Follow Up
Subjective:
Feels a little better, FiO2 weaned to 8 L, no chest pain, chest congestion, productive cough, abdominal pain
Review of Systems
General: Other (Per HPI)
Objective Data
Data Reviewed
Vital Signs / I&O:
Vital Signs
Temp Pulse Resp BP Pulse Ox
98 F 78 22 151/78 97
04/06/25 07:08 04/06/25 07:28 04/06/25 07:28 04/06/25 06:00 04/06/25 07:28
Intake and Output
04/05/25 04/06/25 04/07/25
06:59 06:59 06:59
Intake Total 2686 / 2686 810 / 810
Output Total 3743 / 3743 5450 / 5450
Balance -1057 / -1057 -4640 / -4640
SaO2: 97
Nasal Cannula flow liters per minute: 10
Physical Exam
General: Respiratory Distress (negative), Comfortable, Chills (negative) and Sweats (negative)
HEENT: Normocephalic and Anicteric
Cardiovascular: Irregular Rhythm (Irregularly irregular) and Peripheral Edema (+2 lower extremity pitting edema bilaterally)
Respiratory: Wheeze (negative), Crackles (Bilateral), Rhonchi (negative) and Non-Labored Respirations
GI: Soft, Distended (Significant abdominal obesity), Non Tender and Normal Bowel Sounds
Neurology: AO x 3 and Tremors (negative)
Skin: Warm, Dry, Cyanosis (negative) and Jaundice (negative)
Labs/Micro/Reports
Lab Data
04/06/25 04:08
04/06/25 04:08
Laboratory Results
04/06/25
04:08
APTT 76.4 H
Microbiology
04/01/25 22:19 Blood/Venous Blood Culture - Preliminary
No Growth in 4 days- Final report to follow
04/01/25 16:55 Blood/Venous Blood Culture - Preliminary
No Growth in 4 days- Final report to follow
04/02/25 02:47 Endotracheal Respiratory Culture - Final
Usual Respiratory Gerri
04/02/25 02:47 Endotracheal Gram Stain - Final
04/01/25 16:51 Nose MRSA Screen - Final
No Methicillin Resistant Staphylococcus aureus isolated.
--- NOTE | 2025-04-06 07:43 | W.PN.ID1 ---
Date of Service
Date of Service: April 06, 2025
Today's Communication
Continue antibiotics. See below�
Assessment / Plan
Aspiration pneumonia
Leukocytosis
JAMES (CR = 2.2; Est CrCl= 399)
S/p cardiac arrest; successful ACLS
CAD
CHF
HTN
HLD
Hx AVR
Morbid obesity (BMI = 49)
Hx BPH
Hypothyroidism
Recommendations:
Continue with Unasyn (d#5)
Creatinine improved. Will change to 3 g IV every 6 hours.
Follow white count and temperature curve.
����������������������������������������������������������
Chief Complaint
-: Leukocytosis and Pneumonia
Subjective / Review of Systems
Review of Systems: No Fever, No Chills and No Chest Pain
Vital Signs / Physical Exam
Vital Signs
Vital Signs
Temp Pulse Resp BP Pulse Ox
98 F 78 22 151/78 97
04/06/25 07:08 04/06/25 07:28 04/06/25 07:28 04/06/25 06:00 04/06/25 07:35
Physical Exam
Constitutional: Comfortable, Non-toxic and Obese
Eyes: Sclera Anicteric
Cardiovascular: S1/S2; Negative S3/S4
Pulmonary: Wheezes, Coarse and Non Labored
Gastrointestinal: Soft, Non Distended and Normal Bowel Sounds
Extremities: Edema; Negative Cyanosis or Erythema
Skin: Warm and Dry; Negative Rash or Jaundice
Neurological: Awake and Alert
Psychological: Calm
Objective Data
Lab Data
Lab Results
04/06/25 04:08
04/06/25 04:08
PT 17.9 Sec (11.4-14.6) H 04/02/25 04:35
INR 1.42 04/02/25 04:35
APTT 76.4 Sec (23.4-35.0) H 04/06/25 04:08
Estimated Creat Clear 39 ml/min 04/06/25 04:08
Lactic Acid 1.9 mmol/L (0.7-2.0) 04/01/25 18:21
Total Bilirubin 1.1 mg/dl (0.2-1.3) 04/05/25 05:20
AST 35 U/L (17-59) 04/05/25 05:20
ALT 74 U/L (0-50) H 04/05/25 05:20
Alkaline Phosphatase 106 U/L (38-126) 04/05/25 05:20
Most recent labs reviewed.
Micro Results:
04/01/25 22:19 Blood Culture - Preliminary
Blood/Venous No Growth in 4 days- Final report to follow
04/01/25 16:55 Blood Culture - Preliminary
Blood/Venous No Growth in 4 days- Final report to follow
04/02/25 02:47 Respiratory Culture - Final
Endotracheal Usual Respiratory Gerri
Gram Stain - Final
04/01/25 16:51 MRSA Screen - Final
Nose No Methicillin Resistant Staphylococcus aureus isolated.
04/02/25 14:45 Respiratory Syncytial Virus Ag - Final
Nasalpharynx Negative for Respiratory Syncytial Virus.
A false negative result may be obtained with a specimen
collected early in the acute phase. If symptoms persist, a
new specimen should be tested.
04/02/25 11:48 Influenza Types A & B (TIMA) - Final
Nasal Swab Negative for Influenza A & B, NAAT
Negative results must be combined with clinical observations
and patient history.
Nucleic Acid Amplification test (NAAT)performed on the
[employer]ible platform.
04/01/25 16:49 Legionella Urinary Antigen - Final
Urine Negative for Legionella pneumophila Serogroup 1 antigen.
A negative result does not rule out the possiblity of
Legionella infection due to other serogroups or species of
Legionella. Clinical correlation is recommended.
Streptococcus pneumoniae Antigen (M - Final
Negative for Streptococcus pneumoniae antigen.
A negative result does not exclude infection with
Streptococcus pneumoniae. Clinical correlation is
recommended.
Imaging:
04/05/2025 CXR (portable): Bilateral pulmonary parenchymal opacities appear unchanged from the previous radiograph. Stable position of the right PICC and enteric tube. Sternotomy wires, mediastinal clips, and aortic valve prosthesis. No large pleural
effusion or pneumothorax. Stable cardiomediastinal silhouette.
04/04/2025 CXR (portable): Mild cardiomegaly noted. Median sternotomy wires in place. AVR noted. Prominence of the interstitial compartment, with cephalization of the pulmonary vasculature.
04/03/2025 CXR (portable): Patchy parenchymal opacity involving the right lung, greater in the upper lobe. Findings appear stable.
Chest X-Ray: Image Reviewed and Report Reviewed
--- NOTE | 2025-04-06 08:23 | W.PN.CARDCBS ---
Today's Communication / Plan
-
Cont Diuresis
Cont Amiodarone load
Eventual left and right heart cath once cr stable, defer to renal
Eventual ICD
Impression / Plan
-
.
PCP: Dr. Mona Jerry
Card: Dr. VANESSA Calero
Impression:
Admitted with out of hospital cardiac arrest 04/01/25
Out of hospital cardiac arrest with CPR, AED shocks, external shocks and ROSC 04/01/25
collapsed in the main lobby of the hospital while there to register for an echo
VF
New CM EF 40-45%
Elevated troponin with peak 1.2
Possible acute on chronic HFpEF
CXR shows pulmonary edema 04/01/25
Permanent Afib on chronic Eliquis OAC
cRBBB
s/p tissue AVR for severe 04/06/2011
CAD s/p CABG with SVG to PDA 04/06/2011
HTN
Dyslipidemia
Morbid obesity
Hypothyroidism
Echo 04/30/2024: EF 65 to 70%, moderate concentric LVH, mild MS peak/mean 13/5 mmHg, mild MR, well-seated tissue AVR with peak/mean 45/29 mmHg, mild TR with PAP 41 mmHg
Echo April 01 2025: EF 40-45% mod LVH marked paradoxial septal motion. #27 mm bovine AVR with peak/mean grad 34/22 mmHG mod bioprosthetic stenosis with mild TR and PASp 38 mmHg.
Hx: Patient had an [id number] cardiac arrest while in the main lobby registering for outpatient testing and cardiology responded for the overhead call of a code and is now consulted. Patient saw Dr. Gavin in the office on 10/14/2024 and felt that
he was doing well from a cardiac standpoint although there was some concern for bioprosthetic AVR dysfunction, plan was to check an outpatient echo. Patient presented to [facility] main lobby today to register for his outpatient echo and while walking
through the vestibule to reach the lobby he collapsed, a bystander reports patient was walking and then was suddenly on the ground. Situation was recognized situation was recognized, CPR started, AED applied, shock advised and given, CPR resumed
AED advised another shock which was given, and that time additional personnel arrived and patient was placed on heart monitor that showed VF, patient shocked using external defibrillator, a total of 3 rounds of epi was given, patient then with
asystole and was given additional CPR then VF and then another shock and since then has been in A-fib with his chronic RBBB. During this patient was also intubated and was found to have blood in his mouth prior to intubation. Patient was
stabilized transferred to a stretcher and moved to the ER.
Plan:
Remains awake and alert post extubation following OOH VT/VF cardiac arrest.
Remains rate controlled perm AFib
Cont Amiodarone load 400 mg TID
Nebivolol resumed at lower dose 2.5 mg daily
Pt will be cosidered for left and possible right heart cath once renal function stable, defer to nephrology
Eventual ICD for secondary prevention, prior to d/c, given VT/VF cardiac arrest on presentation. -Extubated, awake and alert following OOH VT/VF cardiac arrest
Cont IV Heparin for now, Benjamin held pending procedures.
Diuresis with lasix as per nephrology.
Progress Note - Electrical Tester Battery
Subjective
Date of Service: April 06, 2025
Pt seen and examined. No complaints. No chest pain or shortness of breath.
Objective
Labs:
04/06/25 04:08
04/06/25 04:08
Labs
Hgb 8.9 g/dL (13.0-18.0) L 04/06/25 04:08
Hct 26.4 % (39.0-52.0) L 04/06/25 04:08
Plt Count 154 10^3/uL (130-400) 04/06/25 04:08
PT 17.9 Sec (11.4-14.6) H 04/02/25 04:35
INR 1.42 04/02/25 04:35
APTT 76.4 Sec (23.4-35.0) H 04/06/25 04:08
Sodium 144 mmol/L (135-145) 04/06/25 04:08
Potassium 4.6 mmol/L (3.5-5.1) 04/06/25 04:08
BUN 74 mg/dl (9-20) H 04/06/25 04:08
Creatinine 2.2 mg/dL (0.7-1.3) H 04/06/25 04:08
Glucose 146 mg/dl (70-99) H 04/06/25 04:08
Vital Signs and I&O:
Vital Signs
Temp Pulse Resp BP Pulse Ox
98 F 78 22 151/78 97
04/06/25 07:08 04/06/25 07:28 04/06/25 07:28 04/06/25 06:00 04/06/25 07:35
Vital Signs
Temp Pulse Resp BP Pulse Ox
98 F 78 22 151/78 97
04/06/25 07:08 04/06/25 07:28 04/06/25 07:28 04/06/25 06:00 04/06/25 07:35
Intake & Output
04/04/25 04/05/25 04/06/25 04/07/25
06:59 06:59 06:59 06:59
Intake Total 1638.6 / 1736.6 2686 / 2686 810 / 810
Output Total 1075 / 1125 3743 / 3743 5450 / 5450
Balance 563.6 / 611.6 -1057 / -1057 -4640 / -4640
Physical Exam
Physical Exam
General: No acute distress, AAOX3
Neck: Negative JVD
Heart: Irregularly irregular, Negative S3 positive S1/S2, Negative S4, No murmur
Lungs: CTA b/l, negative wheezes/rales/rhonchi
Abd: Positive BS, NT/ND, neg rebound/rigidity/guarding
Ext: Negative cyanosis/clubbing/edema
Neuro: nonfocal
[2025-04-06] MEDS: LIDOCAINE 4% PATCH 1 PATCH TOPICAL (08:48)
[2025-04-06] MEDS: LASIX 80 MG IV ×2 (08:48→15:39)
[2025-04-06] MEDS: UNASYN IV ×3 (08:49→20:08)
--- NOTE | 2025-04-06 09:28 | W.PN.NEPH.PH ---
Today's Communication / Plan
-
diurese
Assessment/Plan
-
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
presents with cardiac arrest. Patient was here in the hospital going for an echo that was ordered as an outpatient. He follows with graphic art technician, Dr. Raymon Calero, last saw him in the office on 10/14/2024. Due to his history of chronic HFpEF, an
echo was ordered for him which is why he was here today. While walking through the hospital lobby, he collapsed and had no pulse.
Renal consultation for acute kidney injury with creatinine increasing from normal baseline. Significantly hypotension. Was on pressor support briefly. Was intubated and then extubated rather quickly.
Takes furosemide regularly outpatient. He has not noticed any significant weight gain prior to admission.
Impression.
Acute kidney injury likely hemodynamic mediated early ATN.
CHF new ejection fraction 40 to 45% from 60% April 2024
Status post cardiac arrest.
Atrial fibrillation rate controlled.
CAD status post CABG.
Plan.
continue IV lasix for diuresis
follow BMP
likely another 2 days of IV diuresis
He was a lasix/metolazone schedule as outpatient
-
-
Date of Service: April 06, 2025
CC / HPI / ROS
-
Chief Complaint:
sob
History of Present Illness:
JAMES in setting of cardiorenal/hypotension
diuresing will with IV lasix for decompensated HF
JAMES/Cr improving to 2.2
Hgb stable low 8.9
BP stable
remains on supplemental O2
Review of Systems:
no CP
mild SOB
Labs
-
Labs:
WBC 16.2 10^3/uL (4.8-10.8) H 04/06/25 04:08
RBC 3.10 10^6/uL (4.70-6.10) L 04/06/25 04:08
Hgb 8.9 g/dL (13.0-18.0) L 04/06/25 04:08
Hct 26.4 % (39.0-52.0) L 04/06/25 04:08
Plt Count 154 10^3/uL (130-400) 04/06/25 04:08
Sodium 144 mmol/L (135-145) 04/06/25 04:08
Potassium 4.6 mmol/L (3.5-5.1) 04/06/25 04:08
Chloride 111 mmol/L (98-107) H 04/06/25 04:08
Carbon Dioxide 23 mmol/L (22-30) 04/06/25 04:08
BUN 74 mg/dl (9-20) H 04/06/25 04:08
Creatinine 2.2 mg/dL (0.7-1.3) H 04/06/25 04:08
eGFR 29.91 04/06/25 04:08
Glucose 146 mg/dl (70-99) H 04/06/25 04:08
Calcium 8.7 mg/dl (8.4-10.2) 04/06/25 04:08
Phosphorus 4.7 mg/dl (2.5-4.5) H 04/06/25 04:08
Pwt-K-Pcgwptytixs Pept 78866 pg/ml 04/04/25 04:46
Albumin 3.9 g/dl (3.5-5.0) 04/05/25 05:20
Physical Exam
-
Vital Signs:
Vital Signs
Temp Pulse Resp BP Pulse Ox
98 F 89 22 129/73 97
04/06/25 07:08 04/06/25 08:48 04/06/25 07:28 04/06/25 08:48 04/06/25 07:35
Cardiovascular:: Regular rate and rhythm
Respiratory:: Bilateral: Coarse and Bilateral: Rales
Lung Excursion:: Normal
Abdomen:: Nontender and Soft
Bowel Sounds:: Normal
Extremity Edema:: +1: Bilateral:
--- NOTE | 2025-04-06 10:30 | PTOTSP ---
Speech Language Pathology
Pt seen for cognitive-linguistic evaluation via the [place] Cognitive Assessment (MOCA), version 8.2. Pt with a score of 23/30 where normal range is 26-30. Pt with mild cognitive deficits.
Pt also seen for dysphagia tx. Hoarse vocal quality noted, slighty improved with wet swabs. P.O. trials of thin liquids via cup/straw, puree, and regular solids provided. Adequate mastication, bolus formation, and A-P transit noted with no oral
residue. No overt signs of aspiration.
Recommend:
(1) Initiate regular solids/thin liquids pending labor conciliator today
(2) General aspiration precautions
(3) Meds as tolerated
(4) If ANY difficulty noted, will complete fiberoptic endoscopic evaluation of swallowing (FEES). VSE not an option given body habitus
(4) FLOWER STRIPPER to continue to for dysphagia and cognitive-linguistic tx
[2025-04-06] MEDS: BYSTOLIC 2.5 MG TUBE (11:51)
[2025-04-06] MEDS: DELTASONE 40 MG TUBE (11:52)
[2025-04-06] MEDS: LIPITOR 40 MG TUBE (11:52)
[2025-04-06] MEDS: ROBITUSSIN 200 MG TUBE (11:53)
[2025-04-06] MEDS: MIRALAX 17 GRAMS TUBE (11:55)
[2025-04-06] MEDS: PACERONE 400 MG TUBE ×2 (11:55→15:39)
[2025-04-06 12:00] LABS: Glucose - Point of Care 151 mg/dl (70-99)
[2025-04-06] MEDS: NOVOLOG FLEXPEN 3 UNITS SC ×3 (12:04→22:34)
[2025-04-06] MEDS: ROBITUSSIN TUBE (12:07)
--- NOTE | 2025-04-06 13:00 | PTCARENOTE ---
pt awake and alert , Afib on monitor , on 10 L mid flow this am now down to 8 L . his feeding tube out since last night , he passed a swallowing eval today now able to take oral meds and have diet , continues on heparin gtt, for possible cardiac
cath , NPO for now , awaiting for cardiology for input on timing,
--- NOTE | 2025-04-06 13:21 | W.PN.HOSP.TC ---
Today's Communication/Plan
-
continue Abx, IV diuretics, Amiodarone
Follow labs
follow [facility] consultant recs
wean O2
continue IMU levels
Assessment / Plan
Assessment / Plan
Assessment:
VT/VF cardiac arrest
Cardiogenic Shock
Coronary Artery Disease
Hx CABG
Acute Heart Failure mid-range Ejection Fraction
Acute Respiratory Failure
-patient s/p 2 shocks for VT/VF, IV Epi x 3, currently on amiodarone gtt
-s/p intubation later extubated 04/02 to BIPAP weaned off to midflow
-speech eval appreciated: regular diet
-weaned off pressors
-Regional Loss Prevention Manager Consult appreciated - continue steroids
-Cardiology consult appreciated eventual Left and Right heart cath and ICD prior to discharge. home bystolic resumed reduce dose
-cont hep gtt with eventual transition to Eliquis
-CT Head appreciated no acute abn's
-EEG appreciated no sz activity, Moderately abnormal EEG for age due to moderately diffuse bihemispheric slowing
-Neurology consult appreciated
-ECHO appreciated EF 40-45% decreased from previous ECHO EF 65%
Prediabetes A1c 5.8
Steroid induced hyperglycemia
- Sliding scale
- continue meal time insulin
- monitor and titrate insulin regimen as necessary.
White Count Elevation
Steroid induced Leukocytosis
Concern for aspiration PNA
Right hand/arm Swelling at IV site reported Unasyn infiltration overnight
- trend WBC
- Follow cultures
- ID eval appreciated cont Unasyn course
JAMES likely cardiorenal
Metabolic Acidosis
Mild Hyperkalemia
- brief bicarb gtt as per ICU completed
- monitor renal function
- Cr trended up to peak 2.9 improving with aggressive diuresis as per Nephro
- Nephro eval appreciated
parox Atrial Fibrillation
- IV amiodarone gtt switched to PO Amiodarone 400 mg TID, cont as per cardio
-cont hep gtt with eventual transition to Eliquis
Hx Aortic Valve replacement
Essential HTN
- home Bystolic resumed reduced dose as per Cardio
- Lasix as per Nephro
- monitor and titrate antihypertensive regimen as necessary
Stage 1 right middle flank pressure injury, POA
- local wound care
Hyperlipidemia
Mild Transaminitis likely 2/2 liver injury d/t cardiac arrest as above
- Transaminitis significant improved/resolving
- home statin resumed
Hypothyroidism
- cont home Synthroid
DVT ppx: Heparin drip
Code: Full
Anticipated Discharge: > 48 hours
Subjective/Interval History
-
Date of Service: April 06, 2025
resting comfortably, no complaints
Objective Data
-
Labs:
Laboratory Results
04/06/25
04:08
WBC 16.2 H
Hgb 8.9 L
Hct 26.4 L
Plt Count 154
APTT 76.4 H
Sodium 144
Potassium 4.6
Chloride 111 H
Carbon Dioxide 23
BUN 74 H
Creatinine 2.2 H
Glucose 146 H
Calcium 8.7
Vital Signs:
Vital Signs
Temp Pulse Resp BP Pulse Ox
98.6 F 94 24 138/82 96
04/06/25 11:23 04/06/25 12:30 04/06/25 12:30 04/06/25 12:00 04/06/25 12:30
I&O
04/05/25 04/06/25 04/07/25
06:59 06:59 06:59
Intake Total 2686 / 2686 810 / 810 210 / 210
Output Total 3743 / 3743 5450 / 5450 1150 / 1150
Balance -1057 / -1057 -4640 / -4640 -940 / -940
Physical Exam
-
General: Obese
HEENT: Normocephalic and Atraumatic
Respiratory: Negative Wheezes
Cardiac: Irregular Rhythm
GI: Soft and Nontender
Musculoskeletal: Edema, Right Lower Extrem and Edema, Left Lower Extrem
Neuro: AO x 3
Psych: Calm
Data Reviewed
-
Total Time Spent with Patient (in minutes): 51
Labs: Labs Reviewed by me
[2025-04-06] MEDS: HEPARIN 25000 UNITS/250 ML IV (13:39)
--- NOTE | 2025-04-06 16:27 | CM ---
IV/AB, IV/Lasix, wean O2. Discharge POC: Rec for SNF. Will get preferences.
[2025-04-06] MEDS: NOVOLOG FLEXPEN-MODERATE RESISTANCE SC (16:46)
[2025-04-06 16:54] LABS: Glucose - Point of Care 139 mg/dl (70-99)
[2025-04-06] MEDS: ROBITUSSIN 200 MG PO ×2 (17:26→22:35)
[2025-04-06] MEDS: FLOMAX 0.4 MG PO (17:26)
[2025-04-06 17:27] LABS: Glucose - Point of Care 137 mg/dl (70-99)
--- NOTE | 2025-04-06 20:00 | PTCARENOTE ---
Assumed care at 1900. Patient received awake and alert, watching TV. Although slightly tachypneic, he is without apparent signs of distress or discomfort. He currently rates sternal discomfort at 2/10 but pain is as high as 8/10 with coughing. He
declines offer of pain medication at this time. No DUNN, N/V, SOB. See diving supervisor on worklist flowsheet. Afib on CM with BBB. BUL with scattered crackles, left base clear and RML and RLL diminished. On Midflow O2 at 7L. IV sites Left FA and left
wrist WDL. Bariatric bed currently in chair position, low and locked. Call allen within reach.
[2025-04-06] MEDS: REMOVE LIDOCAINE PATCH 1 PATCH REMOVE (20:08)
[2025-04-06 21:58] LABS: Glucose - Point of Care 153 mg/dl (70-99)
[2025-04-06] MEDS: PACERONE 400 MG PO (22:00)
--- NOTE | 2025-04-06 22:30 | PTCARENOTE ---
Complete cares given, CHG cloth bath, solis cath care with wipes, complete linen change. Teeth brushed. Patient tolerated well.
[2025-04-06] MEDS: TYLENOL 650 MG PO (23:02)
[2025-04-07] VITALS (15 sets, daily range): BP systolic 102–148; BP diastolic 43–114; PULSE 85; O2SAT 95; BMI 47.4
--- NOTE | 2025-04-07 | PTCARENOTE ---
Appears to be sleeping comfortably. No complaints offered. Rouses easily. VSS.
[2025-04-07] MEDS: UNASYN IV ×4 (01:25→20:43)
[2025-04-07] MEDS: HEPARIN 25000 UNITS/250 ML IV ×2 (04:46→21:24)
[2025-04-07 05:15] LABS: Hematocrit 26.8 % (39.0-52.0); Hemoglobin 9.0 g/dL (13.0-18.0); Mean Corp Hgb Conc. 33.6 g/dL (33.0-37.0); Mean Corpuscular Volume 86.5 fL (80.0-94.0); Platelet Count 160 10^3/uL (130-400); Red Cell Dist. Width 16.9 % (11.5-14.5)
[2025-04-07 05:23] LABS: APTT 149.7 Sec (23.4-35.0)
[2025-04-07 05:41] LABS: Blood Urea Nitrogen 82 mg/dl (9-20); Calcium 8.4 mg/dl (8.4-10.2); Carbon Dioxide 31 mmol/L (22-30); Chloride 108 mmol/L (98-107); Estimated Creatinine Clearance 42 ml/min; Glucose 114 mg/dl (70-99); Magnesium 2.8 mg/dl (1.6-2.3); Potassium 4.2 mmol/L (3.5-5.1); Sodium 147 mmol/L (135-145); eGFR 33.53
[2025-04-07] MEDS: SYNTHROID 150 MCG PO (05:41)
--- NOTE | 2025-04-07 06:45 | PTCARENOTE ---
Heparin gtt off one hour at 0545 for PTT 149.7. Resumed at 1300u/hr at 0645.
[2025-04-07] MEDS: DUONEB 3 ML INH ×2 (07:24→20:01)
[2025-04-07] MEDS: PULMICORT 0.5 MG INH ×2 (07:24→20:01)
--- NOTE | 2025-04-07 07:28 | PTCARENOTE ---
Report called verbally to oncoming Edenilson guardado RN. Questions answered.
--- NOTE | 2025-04-07 07:34 | W.PN.ID1 ---
Date of Service
Date of Service: April 07, 2025
Today's Communication
Continue antibiotics.
Assessment / Plan
Aspiration pneumonia
Leukocytosis
JAMES (CR = 2.2; Est CrCl= 399)
S/p cardiac arrest; successful ACLS
CAD
CHF
HTN
HLD
Hx AVR
Morbid obesity (BMI = 49)
Hx BPH
Hypothyroidism
Recommendations:
Continue with Unasyn (d#6)
Creatinine with continued improvement.
Follow white count and temperature curve.
For possible cardiac catheterization today.
����������������������������������������������������������
Chief Complaint
-: Leukocytosis and Pneumonia
Subjective / Review of Systems
Review of Systems: No Fever, No Chills and No Chest Pain
Vital Signs / Physical Exam
Vital Signs
Vital Signs
Temp Pulse Resp BP Pulse Ox
97.4 F 75 18 133/73 96
04/07/25 07:22 04/07/25 07:29 04/07/25 07:29 04/07/25 06:00 04/07/25 07:29
Physical Exam
Constitutional: No Acute Distress, Comfortable, Non-toxic and Obese
Eyes: Sclera Anicteric
Cardiovascular: S1/S2; Negative S3/S4
Pulmonary: Wheezes (Diminished from yesterday), Coarse and Non Labored
Gastrointestinal: Soft, Non Distended and Normal Bowel Sounds
Extremities: Edema and Venous Insufficiency (Bilateral lower extremities); Negative Cyanosis or Erythema
Skin: Warm and Dry; Negative Rash or Jaundice
Neurological: Awake and Alert
Psychological: Calm
Objective Data
Lab Data
Lab Results
04/07/25 04:54
04/07/25 04:54
PT 17.9 Sec (11.4-14.6) H 04/02/25 04:35
INR 1.42 04/02/25 04:35
APTT 149.7 Sec (23.4-35.0) H 04/07/25 04:54
Estimated Creat Clear 42 ml/min 04/07/25 04:54
Lactic Acid 1.9 mmol/L (0.7-2.0) 04/01/25 18:21
Total Bilirubin 1.1 mg/dl (0.2-1.3) 04/05/25 05:20
AST 35 U/L (17-59) 04/05/25 05:20
ALT 74 U/L (0-50) H 04/05/25 05:20
Alkaline Phosphatase 106 U/L (38-126) 04/05/25 05:20
Most recent labs reviewed.
Micro Results:
04/01/25 22:19 Blood Culture - Final
Blood/Venous No Growth - Final Report
04/01/25 16:55 Blood Culture - Final
Blood/Venous No Growth - Final Report
04/02/25 02:47 Respiratory Culture - Final
Endotracheal Usual Respiratory Gerri
Gram Stain - Final
04/01/25 16:51 MRSA Screen - Final
Nose No Methicillin Resistant Staphylococcus aureus isolated.
04/02/25 14:45 Respiratory Syncytial Virus Ag - Final
Nasalpharynx Negative for Respiratory Syncytial Virus.
A false negative result may be obtained with a specimen
collected early in the acute phase. If symptoms persist, a
new specimen should be tested.
04/02/25 11:48 Influenza Types A & B (TIMA) - Final
Nasal Swab Negative for Influenza A & B, NAAT
Negative results must be combined with clinical observations
and patient history.
Nucleic Acid Amplification test (NAAT)performed on the
[employer] platform.
04/01/25 16:49 Legionella Urinary Antigen - Final
Urine Negative for Legionella pneumophila Serogroup 1 antigen.
A negative result does not rule out the possiblity of
Legionella infection due to other serogroups or species of
Legionella. Clinical correlation is recommended.
Streptococcus pneumoniae Antigen (M - Final
Negative for Streptococcus pneumoniae antigen.
A negative result does not exclude infection with
Streptococcus pneumoniae. Clinical correlation is
recommended.
Imaging:
04/05/2025 CXR (portable): Bilateral pulmonary parenchymal opacities appear unchanged from the previous radiograph. Stable position of the right PICC and enteric tube. Sternotomy wires, mediastinal clips, and aortic valve prosthesis. No large pleural
effusion or pneumothorax. Stable cardiomediastinal silhouette.
04/04/2025 CXR (portable): Mild cardiomegaly noted. Median sternotomy wires in place. AVR noted. Prominence of the interstitial compartment, with cephalization of the pulmonary vasculature.
04/03/2025 CXR (portable): Patchy parenchymal opacity involving the right lung, greater in the upper lobe. Findings appear stable.
Care Review
Plan reviewed with: Nurse
--- NOTE | 2025-04-07 07:36 | W.PN.PUL.V3 ---
Today's Communication / Plan
-
Wean FiO2
Increase activity
Eventual right and left heart catheterization
Prednisone taper
Finite course of antibiotics- Infectious disease following
Transfer to IVU-pulmonary will continue to follow for couple days-oxygen and prednisone wean
Assessment
-
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
presents with cardiac arrest. Patient was here in the hospital going for an echo that was ordered as an outpatient. He follows with tool grinder set up operator gear, Dr. Raymon Calero, last saw him in the office on 10/14/2024. Due to his history of chronic HFpEF, an
echo was ordered for him which is why he was here today. While walking through the hospital lobby, he collapsed and had no pulse. There was approximately 5 minutes or so before CPR was started. He was noted to have blood coming out of his mouth
and when he was finally intubated, there was frequent suctioning of straight blood coming from the endotracheal tube. The monitor was placed and he was found to be in V-fib and he was shocked. Epinephrine x 3 was given. Patient was shocked for a
total of 2 times. Also given amiodarone and then was transferred to the ER for further stabilization. Due to hypotension, Levophed was started. CT head showed no evidence of an acute intracranial abnormality and CTA chest showed no evidence of
any PE or an acute aortic dissection, and there was evidence of pulmonary edema and pneumonia. Initial temperature 97.2 �F. Initial pulse rate 139, respiratory rate 20, BP 79/49 and he was saturating 92% via ventilator. Initial labs pertinent for
mild leukocytosis to 14.9, Hb 10.7, INR 1.39, initial lactate 2.4, initial troponin 0.067, and proBNP 1550. Patient was then transferred to the ICU and Buffing Wheel Raker services consulted for additional management/recommendations.
Chronic conditions ACCOUNTING INTERN: Chronic A-fib on Eliquis, chronic HFpEF, CAD s/p CABG, RBBB, history of bioprosthetic AVR with bioprosthetic valve stenosis, hypothyroidism, hyperlipidemia, hypertension, morbid obesity, chronic venous stasis dermatitis, BPH
Impression:
#Cardiac arrest with shockable rhythm with shock x2 and epi x3 s/p ROSC (reported downtime about 15 minutes)
#Ventilator dependent respiratory failure (intubated 04/01/2025, extubated 04/02/2025)
#Acute decompensated heart failure/acute HFmrEF
#Circulatory shock likely due to sepsis - shock state resolved as of 04/02
#Pneumonia/aspiration pneumonia
#Elevated troponin likely due to NSTEMI versus demand ischemia
#Chronic anemia
#Morbid obesity
#Chronic venous stasis dermatitis
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
#Pulmonary hypertension
#Chronic A-fib with RBBB
#Hypothyroidism
#Hyperlipidemia
#Hypertension
Plan:
- s/p TTM - stopped early as he woke up, following commands, and was extubated on 04/02/25
- He continues to be awake and alert
- Scheduled tylenol DC'd
- CT head showed no acute intracranial pathology
- Consulted neurology - recs appreciated
- s/p EEG on 04/01/2025 - given that he was following commands, EEG was stopped
- Continue antibiotics with Unasyn for aspiration; follow-up blood cultures and respiratory culture (both show NGTD); MRSA swab negative
- COVID swab, flu swab + RSV all negative
- Amiodarone drip changed to PO amio; cardiology on board
- Patient was extubated on 04/02/2025
- Continue midflow nasal cannula with BiPAP as needed- Currently on 7 L
- Keep SpO2 >90-94%, weaning down midflow O2 flow rate as tolerated
- Continue aspiration precautions; keep HOB >30-45�
- prn nebulized bronchodilators � not currently bronchospastic
- He was wheezing after extubation, and could have been a cardiac wheeze --> started solumedrol with budesonide and Duonebs, and as of 04/03 his wheezing has resolved
- Started weaning Solu-Medrol on 04/04/25 to 40mg IV q12hr -->Changed to prednisone 40 mg daily 04/06/2025
- Although he has an JAMES, continue with IV lasix
- Occasionally check CXR
- Diurese as Cr tolerates; re-assess daily
- Nephrology on board, and recs appreciated
- Echo checked on 04/01/25 showing moderate concentric LVH, with an LVEF of 40-45% with normal RV size, with suspected mildly reduced RV systolic function, with moderate bioprosthetic aortic valve stenosis with peak/mean gradients of 34/22 mmHg, and
PASP 38 mmHg
- Troponin peaked at 1.21 04/02/2025 � no longer need to continue trending at this time
- No active bleeding seen --> given his initial VT/VF arrest with suspected coronary ischemia, continue heparin gtt --> if he develops hemoptysis on heparin gtt, then will need to take a look via bronch
- Can likely start statin given LFTs have greatly improved - continue to trend LFTs- Will leave up to cardiology
- Maintain net negative fluid balance as tolerated
- Cardiology consulted; given that he has recovered neurologically, he will need an ischemic evaluation and ICD for secondary prevention -tentative LHC and RHC depending on sCr
- Maintain MAP>65
- Remains off vasopressors as of 04/02
- Random cortisol is 36.4 - -> no need for stress dose steroids at this time
-Follow cultures-antibiotics per infectious disease-Unasyn day #5 3 g every 6 hours
-Follow leukocytosis and temperature curve
- Replete electrolytes with K>4, Mg>2
- Maintain euglycemia with goal BG 140-180; check A1C
- Trend H/H and transfuse if needed to keep Hb>7-8g/dL; keep plt>50k
- Early nutrition - continue tube feeds given he was unable to work with PIANO MOVER given his SOB; PIANO MOVER to re-eval him - will need VFSS
- Stress ulcer prophylaxis - no longer needed
- DVT ppx: continue heparin gtt; of note, he possibly bit his tongue after he collapsed but he has no further evidence of bleeding from mouth or coughing up any blood since day of admission
A total of 38 minutes of critical care time was provided for this patient today. This includes management of unstable vital signs, evaluation of the patient at bedside, reviewing the patient's pertinent medical records including radiographs,
microbiology, laboratory evaluations, and discussion with primary team, consultants, pharmacy, nutrition, physical therapy, case management, charge nurse, critical care nursing, and respiratory therapy.
Data:
CTA chest/abdomen/pelvis with contrast 04/01/2025:
Significantly limited examination secondary to motion artifact, the large body habitus, and the patient's arms down position.
No CTA evidence for an acute central pulmonary thromboembolus. Evaluation of the bilateral segmental and subsegmental pulmonary arteries is nondiagnostic.
Bilateral airspace opacities most suspicious for multifocal pneumonia, less likely alveolar pulmonary edema given the distribution.
Cardiomegaly.
Secondary findings suggesting a degree of right heart failure.
Superiorly displaced fracture at the superior endplate of L1, which appears acute and is new compared to the previous CT abdomen/pelvis. New distraction of L1-L2 intervertebral disc space.
CXR 04/02/2025:
Diminished lung volumes. Increased pulmonary parenchymal opacities, left greater than right, as described. Possible considerations include pulmonary edema, aspiration, pneumonia, and/or atelectasis.
Probable small left pleural effusion has developed.
Stable endotracheal tube. Nasogastric tube place, extending into the stomach.
CXR 04/03/2025:
Bilateral airspace opacities throughout both lungs, which appears slightly improved from most recent radiograph.
Interval removal of endotracheal tube.
Subjective Data
-
Date of Service:
Date of Service: April 07, 2025
Chief Complaint: Pulmonary Follow Up and Dyspnea Follow Up
Subjective:
Feels a little better, did not get out of bed yesterday, some chest pain from compression site but otherwise no shortness of breath at rest and no abdominal pain
Review of Systems
General: Other (Per HPI)
Objective Data
Data Reviewed
Vital Signs / I&O:
Vital Signs
Temp Pulse Resp BP Pulse Ox
97.4 F 75 18 133/73 96
04/07/25 07:22 04/07/25 07:29 04/07/25 07:29 04/07/25 06:00 04/07/25 07:29
Intake and Output
04/06/25 04/07/25 04/08/25
06:59 06:59 06:59
Intake Total 810 / 810 1150 / 1150
Output Total 5450 / 5450 6200 / 6200
Balance -4640 / -4640 -5050 / -5050
SaO2: 96
Nasal Cannula flow liters per minute: 7
Physical Exam
General: Respiratory Distress (negative), Comfortable, Chills (negative) and Sweats (negative)
HEENT: Normocephalic and Anicteric
Cardiovascular: Irregular Rhythm (Irregularly irregular) and Peripheral Edema (+2 lower extremity pitting edema bilaterally)
Respiratory: Wheeze (negative), Crackles (Bilateral), Rhonchi (negative) and Non-Labored Respirations
GI: Soft, Distended (Significant abdominal obesity), Non Tender and Normal Bowel Sounds
Neurology: AO x 3 and Tremors (negative)
Skin: Warm, Dry, Cyanosis (negative) and Jaundice (negative)
Labs/Micro/Reports
Lab Data
04/07/25 04:54
04/07/25 04:54
Laboratory Results
04/07/25
04:54
APTT 149.7 H
Microbiology
04/01/25 22:19 Blood/Venous Blood Culture - Final
No Growth - Final Report
04/01/25 16:55 Blood/Venous Blood Culture - Final
No Growth - Final Report
04/02/25 02:47 Endotracheal Respiratory Culture - Final
Usual Respiratory Gerri
04/02/25 02:47 Endotracheal Gram Stain - Final
[2025-04-07 07:48] LABS: Glucose - Point of Care 121 mg/dl (70-99)
[2025-04-07] MEDS: LIDOCAINE 4% PATCH 1 PATCH TOPICAL (07:57)
[2025-04-07] MEDS: MIRALAX 17 GRAMS PO (07:57)
[2025-04-07] MEDS: ROBITUSSIN 200 MG PO ×4 (07:57→21:32)
[2025-04-07] MEDS: BYSTOLIC 2.5 MG PO (07:57)
[2025-04-07] MEDS: LIPITOR 40 MG PO (07:58)
[2025-04-07] MEDS: PACERONE 400 MG PO ×3 (07:58→21:32)
[2025-04-07] MEDS: DELTASONE 40 MG PO (07:59)
[2025-04-07] MEDS: LASIX 80 MG IV (07:59)
[2025-04-07] MEDS: NOVOLOG FLEXPEN-MODERATE RESISTANCE SC ×3 (08:00→21:48)
[2025-04-07] MEDS: NOVOLOG FLEXPEN 3 UNITS SC ×4 (08:00→22:01)
--- NOTE | 2025-04-07 08:16 | W.PN.CARDCBS ---
Today's Communication / Plan
-
Remains rate controlled perm AFib
Transition to Amiodarone 200 mg BID after receiving load 400 mg TID
Nebivolol resumed at lower dose 2.5 mg daily
Pt will be cosidered for left and possible right heart cath once renal function stable. Cr continues to improve. He continues to diurese. Discussed with nephrology. Possible cath next 48 yrs.
Eventual ICD for secondary prevention, prior to d/c, given VT/VF cardiac arrest on presentation.
Cont IV Heparin for now, Eliquis held pending procedures.
Diuresis with lasix as per nephrology.
Impression / Plan
-
.
PCP: Dr. Mona Jerry
Card: Dr. VANESSA Calero
Impression:
Admitted with out of hospital cardiac arrest 04/01/25
Out of hospital cardiac arrest with CPR, AED shocks, external shocks and ROSC 04/01/25
collapsed in the main lobby of the hospital while there to register for an echo
VF
New CM EF 40-45%
Elevated troponin with peak 1.2
Acute renal failure, improving.
Acute on chronic HFpEF
CXR shows pulmonary edema 04/01/25
Permanent Afib on chronic Eliquis OAC
cRBBB
s/p tissue AVR for severe 04/06/2011
CAD s/p CABG with SVG to PDA 04/06/2011
HTN
Dyslipidemia
Morbid obesity
Hypothyroidism
Echo 04/30/2024: EF 65 to 70%, moderate concentric LVH, mild MS peak/mean 13/5 mmHg, mild MR, well-seated tissue AVR with peak/mean 45/29 mmHg, mild TR with PAP 41 mmHg
Echo April 01 2025: EF 40-45% mod LVH marked paradoxial septal motion. #27 mm bovine AVR with peak/mean grad 34/22 mmHG mod bioprosthetic stenosis with mild TR and PASp 38 mmHg.
Hx: Patient had an [id number] cardiac arrest while in the main lobby registering for outpatient testing and cardiology responded for the overhead call of a code and is now consulted. Patient saw Dr. Gavin in the office on 10/14/2024 and felt that
he was doing well from a cardiac standpoint although there was some concern for bioprosthetic AVR dysfunction, plan was to check an outpatient echo. Patient presented to [facility] main lobby today to register for his outpatient echo and while walking
through the vestibule to reach the lobby he collapsed, a bystander reports patient was walking and then was suddenly on the ground. Situation was recognized situation was recognized, CPR started, AED applied, shock advised and given, CPR resumed
AED advised another shock which was given, and that time additional personnel arrived and patient was placed on heart monitor that showed VF, patient shocked using external defibrillator, a total of 3 rounds of epi was given, patient then with
asystole and was given additional CPR then VF and then another shock and since then has been in A-fib with his chronic RBBB. During this patient was also intubated and was found to have blood in his mouth prior to intubation. Patient was
stabilized transferred to a stretcher and moved to the ER.
Plan:
Continues to improve following OOH VT/VF cardiac arrest.
Remains rate controlled perm AFib
Transition to Amiodarone 200 mg BID after receiving load 400 mg TID
Nebivolol resumed at lower dose 2.5 mg daily
Pt will be cosidered for left and possible right heart cath once renal function stable. Cr continues to improve. He continues to diurese. Discussed with nephrology. Possible cath next 48 yrs.
Eventual ICD for secondary prevention, prior to d/c, given VT/VF cardiac arrest on presentation.
Cont IV Heparin for now, Eliholly held pending procedures.
Diuresis with lasix as per nephrology.
Discussed with nursing, primary service and nephrology.
Progress Note - Top Lifter
Subjective
Date of Service: April 07, 2025
Pt seen and examined. No complaints. No chest pain or shortness of breath.
Objective
Labs:
04/07/25 04:54
04/07/25 04:54
Labs
Hgb 9.0 g/dL (13.0-18.0) L 04/07/25 04:54
Hct 26.8 % (39.0-52.0) L 04/07/25 04:54
Plt Count 160 10^3/uL (130-400) 04/07/25 04:54
PT 17.9 Sec (11.4-14.6) H 04/02/25 04:35
INR 1.42 04/02/25 04:35
APTT 149.7 Sec (23.4-35.0) H 04/07/25 04:54
Sodium 147 mmol/L (135-145) H 04/07/25 04:54
Potassium 4.2 mmol/L (3.5-5.1) 04/07/25 04:54
BUN 82 mg/dl (9-20) H 04/07/25 04:54
Creatinine 2.0 mg/dL (0.7-1.3) H 04/07/25 04:54
Glucose 114 mg/dl (70-99) H 04/07/25 04:54
Vital Signs and I&O:
Vital Signs
Temp Pulse Resp BP Pulse Ox
97.4 F 89 18 133/73 96
04/07/25 07:22 04/07/25 07:58 04/07/25 07:29 04/07/25 07:59 04/07/25 07:36
Vital Signs
Temp Pulse Resp BP Pulse Ox
97.4 F 89 18 133/73 96
04/07/25 07:22 04/07/25 07:58 04/07/25 07:29 04/07/25 07:59 04/07/25 07:36
Intake & Output
04/05/25 04/06/25 04/07/25 04/08/25
06:59 06:59 06:59 06:59
Intake Total 2686 / 2686 810 / 810 1150 / 1150
Output Total 3743 / 3743 5450 / 5450 6200 / 6200
Balance -1057 / -1057 -4640 / -4640 -5050 / -5050
Physical Exam
Physical Exam
General: No acute distress, AAOX3
Neck: Negative JVD
Heart: Irregularly irregular, Negative S3 positive S1/S2, Negative S4, No murmur
Lungs: CTA b/l, negative wheezes/rales/rhonchi
Abd: Positive BS, NT/ND, neg rebound/rigidity/guarding
Ext: Negative cyanosis/clubbing/edema
Neuro: nonfocal
--- NOTE | 2025-04-07 09:31 | PTCARENOTE ---
pt aaox3. states min pain in sternum. lido patch applied. 7lnc. pt de la cruz. oob to bsc with 2 person assist ans walker. [facility] care done. heparin gtt running.
--- NOTE | 2025-04-07 09:48 | PN.CDI ---
CDI
- -
CDI:
Physician Documentation Request
Admit Date: 04/01/25 14:52
Dear Doctor Patricia,
Please review the following and provide your response in the progress notes.
Clinical Indicators:
- 04/06 PN 'Acute Heart Failure mid-range Ejection Fraction'
- 04/07 Cardiology 'Acute on chronic HFpEF'
- H&P home med furosemide 40mg daily
- 04/01 Echo EF 40-40%
In an attempt to clarify potentially conflicting documentation, please clarify the type and acuity of the CHF:
Type Acuity
Systolic Acute
Diastolic Chronic
Combined Systolic/Diastolic Acute on Chronic
Other
Use of terms such as suspected, likely, concern for, or probable (associated with a specific diagnosis that is being evaluated, monitored, or treated as if it exists) are acceptable and can be coded in the inpatient setting, when documented at the
time of discharge.
Thank you,
Corby Coreria RN
CDI Specialist
Please use your independent medical judgment in providing your response.
--- NOTE | 2025-04-07 10:32 | W.PN.NEPH.PH ---
Today's Communication / Plan
-
diurese
Assessment/Plan
-
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
presents with cardiac arrest. Patient was here in the hospital going for an echo that was ordered as an outpatient. He follows with child care attendant, Dr. Raymon Calero, last saw him in the office on 10/14/2024. Due to his history of chronic HFpEF, an
echo was ordered for him which is why he was here today. While walking through the hospital lobby, he collapsed and had no pulse.
Renal consultation for acute kidney injury with creatinine increasing from normal baseline. Significantly hypotension. Was on pressor support briefly. Was intubated and then extubated rather quickly.
Takes furosemide regularly outpatient. He has not noticed any significant weight gain prior to admission.
Impression.
Acute kidney injury likely hemodynamic mediated early ATN.
CHF new ejection fraction 40 to 45% from 60% April 2024
Status post cardiac arrest.
Atrial fibrillation rate controlled.
CAD status post CABG.
Plan.
continue IV lasix for diuresis, one dose today given incredible response
follow BMP
would prefer to see Cr < 1.5 before cath
He was a lasix/metolazone schedule as outpatient, which worked well previously
-
-
Date of Service: April 07, 2025
CC / HPI / ROS
-
Chief Complaint:
sob
History of Present Illness:
JAMES in setting of cardiorenal/hypotension
diuresing will with IV lasix for decompensated HF
JAMES/Cr improving to 2.0
Hgb stable low 9.0
BP stable
remains on supplemental O2
Review of Systems:
no CP
mild SOB
Labs
-
Labs:
WBC 13.2 10^3/uL (4.8-10.8) H 04/07/25 04:54
RBC 3.10 10^6/uL (4.70-6.10) L 04/07/25 04:54
Hgb 9.0 g/dL (13.0-18.0) L 04/07/25 04:54
Hct 26.8 % (39.0-52.0) L 04/07/25 04:54
Plt Count 160 10^3/uL (130-400) 04/07/25 04:54
Sodium 147 mmol/L (135-145) H 04/07/25 04:54
Potassium 4.2 mmol/L (3.5-5.1) 04/07/25 04:54
Chloride 108 mmol/L (98-107) H 04/07/25 04:54
Carbon Dioxide 31 mmol/L (22-30) H 04/07/25 04:54
BUN 82 mg/dl (9-20) H 04/07/25 04:54
Creatinine 2.0 mg/dL (0.7-1.3) H 04/07/25 04:54
eGFR 33.53 04/07/25 04:54
Glucose 114 mg/dl (70-99) H 04/07/25 04:54
Calcium 8.4 mg/dl (8.4-10.2) 04/07/25 04:54
Phosphorus 4.9 mg/dl (2.5-4.5) H 04/07/25 04:54
Ydt-K-Emhmxhedcnr Pept 55439 pg/ml 04/04/25 04:46
Albumin 3.9 g/dl (3.5-5.0) 04/05/25 05:20
Physical Exam
-
Vital Signs:
Vital Signs
Temp Pulse Resp BP Pulse Ox
97.4 F 91 22 136/71 93
04/07/25 07:22 04/07/25 09:00 04/07/25 09:00 04/07/25 08:00 04/07/25 08:00
Cardiovascular:: Regular rate and rhythm
Respiratory:: Bilateral: Coarse
Lung Excursion:: Normal
Abdomen:: Nontender and Soft
Bowel Sounds:: Normal
Extremity Edema:: +2: Bilateral:
--- NOTE | 2025-04-07 11:30 | W.PN.HOSP.TC ---
Today's Communication/Plan
-
continue diuresis
eventual Cath and ICD, ideally Cath when Cr 1.5 or less
follow cards/renal recs
IVU transfer
Assessment / Plan
Assessment / Plan
Assessment:
VT/VF cardiac arrest
Cardiogenic Shock
Coronary Artery Disease
Hx CABG
Acute on chronic HFpEF
Acute Respiratory Failure
-patient s/p 2 shocks for VT/VF, IV Epi x 3, currently on amiodarone gtt
-s/p intubation later extubated 04/02 to BIPAP weaned off to midflow
-speech eval appreciated: regular diet
-weaned off pressors
-Historian Research Assistant Consult appreciated - continue steroids
-Cardiology consult appreciated eventual Left and Right heart cath and ICD prior to discharge. home bystolic resumed reduce dose
-cont hep gtt with eventual transition to Eliquis
-CT Head appreciated no acute abn's
-EEG appreciated no sz activity, Moderately abnormal EEG for age due to moderately diffuse bihemispheric slowing
-Neurology consult appreciated
-ECHO appreciated EF 40-45% decreased from previous ECHO EF 65%
Prediabetes A1c 5.8
Steroid induced hyperglycemia
- Sliding scale
- continue meal time insulin
- monitor and titrate insulin regimen as necessary.
White Count Elevation
Steroid induced Leukocytosis
Concern for aspiration PNA
Right hand/arm Swelling at IV site reported Unasyn infiltration overnight
- trend WBC
- Follow cultures
- ID eval appreciated cont Unasyn course
JAMES likely cardiorenal
Metabolic Acidosis
Mild Hyperkalemia
- brief bicarb gtt as per ICU completed
- monitor renal function
- Cr trended up to peak 2.9 improving with aggressive diuresis as per Nephro
- Nephro eval appreciated
parox Atrial Fibrillation
- IV amiodarone gtt switched to PO Amiodarone 400 mg TID, cont as per cardio
-cont hep gtt with eventual transition to Eliquis
Hx Aortic Valve replacement
Essential HTN
- home Bystolic resumed reduced dose as per Cardio
- Lasix as per Nephro
- monitor and titrate antihypertensive regimen as necessary
Stage 1 right middle flank pressure injury, POA
- local wound care
Hyperlipidemia
Mild Transaminitis likely 2/2 liver injury d/t cardiac arrest as above
- Transaminitis significant improved/resolving
- home statin resumed
Hypothyroidism
- cont home Synthroid
DVT ppx: Heparin drip
Code: Full
Anticipated Discharge: > 48 hours
Subjective/Interval History
-
Date of Service: April 07, 2025
resting comfortably, no complaints
Objective Data
-
Labs:
Laboratory Results
04/07/25 04/07/25
04:54 12:45
WBC 13.2 H
Hgb 9.0 L
Hct 26.8 L
Plt Count 160
APTT 149.7 H Pending
Sodium 147 H
Potassium 4.2
Chloride 108 H
Carbon Dioxide 31 H
BUN 82 H
Creatinine 2.0 H
Glucose 114 H
Calcium 8.4
Vital Signs:
Vital Signs
Temp Pulse Resp BP Pulse Ox
97.4 F 91 22 136/71 93
04/07/25 07:22 04/07/25 09:00 04/07/25 09:00 04/07/25 08:00 04/07/25 08:00
I&O
04/06/25 04/07/25 04/08/25
06:59 06:59 06:59
Intake Total 810 / 810 1150 / 1150 159 / 159
Output Total 5450 / 5450 6200 / 6200 1400 / 1400
Balance -4640 / -4640 -5050 / -5050 -1241 / -1241
Physical Exam
-
General: No Apparent Distress
HEENT: Normocephalic and Atraumatic
Respiratory: Negative Wheezes
Cardiac: Regular Rhythm and S1/S2
GI: Soft
Musculoskeletal: No Edema, Edema, Right Lower Extrem and Edema, Left Lower Extrem
Neuro: AO x 3
Psych: Calm
Data Reviewed
-
Total Time Spent with Patient (in minutes): 51
Labs: Labs Reviewed by me
[2025-04-07] MEDS: NOVOLOG FLEXPEN-MODERATE RESISTANCE 7 UNITS SC (12:38)
[2025-04-07 12:45] LABS: Glucose - Point of Care 311 mg/dl (70-99)
[2025-04-07 13:03] LABS: APTT 46.0 Sec (23.4-35.0)
--- NOTE | 2025-04-07 14:54 | CM ---
Wean Prednisone and FiO2, Plan for L heart catheterization and possible R when renal function stable, ultimately ICD. Transfer to IVU. Discharge POC: Therapy recommendation for SNF. Medicare.gov list supplied to patient. He will discuss with
brother and choose preferences.
[2025-04-07 16:49] LABS: Glucose - Point of Care 112 mg/dl (70-99)
[2025-04-07] MEDS: FLOMAX 0.4 MG PO (17:59)
[2025-04-07 18:35] LABS: APTT 53.8 Sec (23.4-35.0)
[2025-04-07] MEDS: REMOVE LIDOCAINE PATCH 1 PATCH REMOVE (20:44)
--- NOTE | 2025-04-07 21:20 | PTCARENOTE ---
Pt transferred to IVU w/ personal belongings. Report given to IVU RNAlexia.
[2025-04-07 21:46] LABS: Glucose - Point of Care 149 mg/dl (70-99)
--- NOTE | 2025-04-07 22:00 | TRANSFER ---
Patient received at approximately 2114 as a transfer from the ICU. Transferred via chair. Patient AOx3, neurological check WDL. commercial painter applied, afib with a BBB. Oxygen saturation on 6L NC 93-96%. Patient endorses dyspnea on exertion,
appears tachypneic at times. Reports his pain from having CPR performed has greatly improved since yesterday. Indwelling urinary catheter draining yellow urine. Patient oriented to room and unit. Call allen within reach. Care ongoing.
--- NOTE | 2025-04-07 23:35 | PTCARENOTE ---
Patient assisted from chair to bed, x3 assist max assist with RW. Patient dyspneic on exertion, reports feeling very short of breath. Oxygen saturation 95-96% on 6L NC. Heparin gtt infusing as ordered. Call allen within reach. Discussed repositioning
and turns to prevent pressure ulcers. Care ongoing.
[2025-04-08] VITALS (12 sets, daily range): BP systolic 105–153; BP diastolic 66–89; PULSE 90–97; O2SAT 95; BMI 44.9
[2025-04-08] MEDS: UNASYN IV ×4 (02:17→19:32)
[2025-04-08 02:32] LABS: Hematocrit 27.5 % (39.0-52.0); Hemoglobin 9.1 g/dL (13.0-18.0); Mean Corp Hgb Conc. 33.1 g/dL (33.0-37.0); Mean Corpuscular Volume 86.2 fL (80.0-94.0); Platelet Count 164 10^3/uL (130-400); Red Cell Dist. Width 17.1 % (11.5-14.5)
[2025-04-08 02:39] LABS: APTT 69.3 Sec (23.4-35.0)
[2025-04-08 03:06] LABS: Blood Urea Nitrogen 71 mg/dl (9-20); Calcium 8.6 mg/dl (8.4-10.2); Carbon Dioxide 33 mmol/L (22-30); Chloride 108 mmol/L (98-107); Estimated Creatinine Clearance 46 ml/min; Glucose 116 mg/dl (70-99); Magnesium 2.7 mg/dl (1.6-2.3); Potassium 4.1 mmol/L (3.5-5.1); Sodium 143 mmol/L (135-145); eGFR 40.75
[2025-04-08] MEDS: SYNTHROID 150 MCG PO (05:55)
[2025-04-08 08:15] LABS: Glucose - Point of Care 111 mg/dl (70-99)
[2025-04-08] MEDS: PULMICORT 0.5 MG INH ×2 (08:37→19:29)
[2025-04-08] MEDS: DUONEB 3 ML INH ×2 (08:37→19:29)
--- NOTE | 2025-04-08 08:53 | W.PN.ID1 ---
Date of Service
Date of Service: April 08, 2025
Today's Communication
Discontinue Unasyn after today's dose.
Assessment / Plan
Aspiration pneumonia
Leukocytosis
JAMES (CR = 2.2; Est CrCl= 399)
S/p cardiac arrest; successful ACLS
CAD
CHF
HTN
HLD
Hx AVR
Morbid obesity (BMI = 49)
Hx BPH
Hypothyroidism
Recommendations:
Currently Unasyn (d#7)
Creatinine with continued improvement.
Follow white count and temperature curve.
Ongoing leukocytosis noted, but patient also remains on steroids at this time.
Given overall clinical stability, would discontinue antibiotics after today's dosing and follow closely.
Patient for eventual cath and ICD placement, but pending ongoing improvement in creatinine.
����������������������������������������������������������
Chief Complaint
-: Leukocytosis and Pneumonia
Subjective / Review of Systems
Patient seen and examined. Overall feels well. Admits to cough with whitish sputum.
Review of Systems: No Fever and No Chills
Vital Signs / Physical Exam
Vital Signs
Vital Signs
Temp Pulse Resp BP Pulse Ox
98.1 F 80 20 139/81 99
04/08/25 07:58 04/08/25 07:13 04/08/25 07:58 04/08/25 07:13 04/08/25 07:58
Physical Exam
Constitutional: No Acute Distress, Comfortable, Non-toxic and Obese
Eyes: Sclera Anicteric
Cardiovascular: S1/S2; Negative S3/S4
Pulmonary: Wheezes, Coarse and Non Labored
Gastrointestinal: Soft, Non Distended and Normal Bowel Sounds
Extremities: Edema and Venous Insufficiency (Bilateral lower extremities); Negative Cyanosis or Erythema
Skin: Warm and Dry; Negative Rash or Jaundice
Neurological: Awake and Alert
Psychological: Calm
Objective Data
Lab Data
Lab Results
04/08/25 02:15
04/08/25 02:15
PT 17.9 Sec (11.4-14.6) H 04/02/25 04:35
INR 1.42 04/02/25 04:35
APTT 69.3 Sec (23.4-35.0) H 04/08/25 02:15
Estimated Creat Clear 46 ml/min 04/08/25 02:15
Lactic Acid 1.9 mmol/L (0.7-2.0) 04/01/25 18:21
Total Bilirubin 1.1 mg/dl (0.2-1.3) 04/05/25 05:20
AST 35 U/L (17-59) 04/05/25 05:20
ALT 74 U/L (0-50) H 04/05/25 05:20
Alkaline Phosphatase 106 U/L (38-126) 04/05/25 05:20
Most recent labs reviewed.
Micro Results:
04/01/25 22:19 Blood Culture - Final
Blood/Venous No Growth - Final Report
04/01/25 16:55 Blood Culture - Final
Blood/Venous No Growth - Final Report
04/02/25 02:47 Respiratory Culture - Final
Endotracheal Usual Respiratory Gerri
Gram Stain - Final
04/01/25 16:51 MRSA Screen - Final
Nose No Methicillin Resistant Staphylococcus aureus isolated.
04/02/25 14:45 Respiratory Syncytial Virus Ag - Final
Nasalpharynx Negative for Respiratory Syncytial Virus.
A false negative result may be obtained with a specimen
collected early in the acute phase. If symptoms persist, a
new specimen should be tested.
04/02/25 11:48 Influenza Types A & B (TIMA) - Final
Nasal Swab Negative for Influenza A & B, NAAT
Negative results must be combined with clinical observations
and patient history.
Nucleic Acid Amplification test (NAAT)performed on the
[employer] platform.
04/01/25 16:49 Legionella Urinary Antigen - Final
Urine Negative for Legionella pneumophila Serogroup 1 antigen.
A negative result does not rule out the possiblity of
Legionella infection due to other serogroups or species of
Legionella. Clinical correlation is recommended.
Streptococcus pneumoniae Antigen (M - Final
Negative for Streptococcus pneumoniae antigen.
A negative result does not exclude infection with
Streptococcus pneumoniae. Clinical correlation is
recommended.
Imaging:
04/05/2025 CXR (portable): Bilateral pulmonary parenchymal opacities appear unchanged from the previous radiograph. Stable position of the right PICC and enteric tube. Sternotomy wires, mediastinal clips, and aortic valve prosthesis. No large pleural
effusion or pneumothorax. Stable cardiomediastinal silhouette.
04/04/2025 CXR (portable): Mild cardiomegaly noted. Median sternotomy wires in place. AVR noted. Prominence of the interstitial compartment, with cephalization of the pulmonary vasculature.
04/03/2025 CXR (portable): Patchy parenchymal opacity involving the right lung, greater in the upper lobe. Findings appear stable.
[2025-04-08] MEDS: LIDOCAINE 4% PATCH 1 PATCH TOPICAL (08:57)
[2025-04-08] MEDS: MIRALAX 17 GRAMS PO (09:09)
[2025-04-08] MEDS: PACERONE 400 MG PO ×3 (09:09→22:27)
[2025-04-08] MEDS: LIPITOR 40 MG PO (09:09)
[2025-04-08] MEDS: DELTASONE 40 MG PO (09:09)
[2025-04-08] MEDS: ROBITUSSIN 200 MG PO ×4 (09:09→22:26)
[2025-04-08] MEDS: BYSTOLIC 2.5 MG PO (09:10)
[2025-04-08] MEDS: NOVOLOG FLEXPEN-MODERATE RESISTANCE SC (09:10)
[2025-04-08] MEDS: LASIX 80 MG IV (09:11)
--- NOTE | 2025-04-08 09:29 | W.PN.PUL3 ---
Today's Communication / Plan
-
- Switch prednisone to 30 mg daily for 3 more days
- Continue diuresis per cardiology service, continue to wean oxygen as tolerated, target oxygen saturation above 90%
- Outpatient follow-up with pulmonary service for pulmonary function testing, 6-minute walk test and sleep study
- Check venous blood gas in a.m.
Assessment
-
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
presents with cardiac arrest. Patient was here in the hospital going for an echo that was ordered as an outpatient. He follows with keg header, Dr. Raymon Calero, last saw him in the office on 10/14/2024. Due to his history of chronic HFpEF, an
echo was ordered for him which is why he was here today. While walking through the hospital lobby, he collapsed and had no pulse. There was approximately 5 minutes or so before CPR was started. He was noted to have blood coming out of his mouth
and when he was finally intubated, there was frequent suctioning of straight blood coming from the endotracheal tube. The monitor was placed and he was found to be in V-fib and he was shocked. Epinephrine x 3 was given. Patient was shocked for a
total of 2 times. Also given amiodarone and then was transferred to the ER for further stabilization. Due to hypotension, Levophed was started. CT head showed no evidence of an acute intracranial abnormality and CTA chest showed no evidence of
any PE or an acute aortic dissection, and there was evidence of pulmonary edema and pneumonia. Initial temperature 97.2 �F. Initial pulse rate 139, respiratory rate 20, BP 79/49 and he was saturating 92% via ventilator. Initial labs pertinent for
mild leukocytosis to 14.9, Hb 10.7, INR 1.39, initial lactate 2.4, initial troponin 0.067, and proBNP 1550. Patient was then transferred to the ICU and Segment Assembler services consulted for additional management/recommendations.
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
Assessment and Plan:
#1. Acute hypoxic respiratory failure, Aspiration pneumonia post cardiac arrest (V Fib/VT) and CPR
- Intubated 04/01, extubated 04/02, currently on nasal cannula at 6 L, saturating around 94%
- Blood cultures, RSV, influenza, COVID-19 screen negative. All cultures have stayed negative.
- Patient has been on steroids due to severity of pneumonia as well as Unasyn, infectious disease service on case, antibiotics discontinued now
- Start to taper prednisone, switch to 30 mg daily for 3 more days then discontinue
#2. Acute on chronic heart failure with reduced ejection fraction
- LVEF 40 to 45% with moderate aortic stenosis of bioprosthetic aortic valve
- Cardiology service on case, currently on IV Lasix
- Good urine output, -2.739 L fluid balance over last 24 hours
#3. Pulmonary hypertension
- Suspect group II. Pulmonary artery pressure around 38 mm on echo. Known low EF of 40 to 45% along with moderate aortic stenosis.
- In view of morbid obesity, might have component of group III also. Will need pulmonary function testing, 6-minute walk test and sleep study as outpatient
- Cardiology notes reviewed, plan for right heart cath and left heart cath once renal function is more stable
- Maintain oxygen saturation more than 90%, target euvolemia
#4. s/p Cardiac arrest with V Fib/VT, with shock x2 and epi x3 s/p ROSC (reported downtime about 15 minutes)
-Cardiology service on case
-Plan for left heart cath and right heart cath once renal function more stable
-Ischemic evaluation with left heart cath pending
-Currently anticoagulated with heparin infusion
-Likely will need AICD placement, management per cardiology service
#4. NSTEMI type II due to above versus acute coronary syndrome
-Currently on aspirin, Nebivolol, atorvastatin, heparin infusion
-Left heart cath timing to be determined
#5. S/p bioprosthetic AVR complicated by bioprosthetic aortic valve stenosis
- Management per Cardiology service
#6. Morbid obesity
- High pretest probability of underlying sleep disordered breathing
- Will pursue sleep study as outpatient
- Check venous blood gas in a.m. to monitor pCO2
Other medical diagnoses:
#Chronic A-fib with RBBB. Jessicaquis currently on hold, on amiodarone p.o. as well as heparin infusion
#Hypothyroidism
#Hyperlipidemia
#Hypertension
A total of 38 minutes of critical care time was provided for this patient today. This includes management of unstable vital signs, evaluation of the patient at bedside, reviewing the patient's pertinent medical records including radiographs,
microbiology, laboratory evaluations, and discussion with primary team, consultants, pharmacy, nutrition, physical therapy, case management, charge nurse, critical care nursing, and respiratory therapy.
Data:
ECHO 03/2025: Left ventricle is small in size. Moderate concentric left ventricular
hypertrophy. Marked paradoxical septal motion. Mild-moderately reduced left
ventricular systolic function. Left ventricular ejection fraction is 40-45 % by
visual estimate. Diastolic function indeterminate.
Normal right ventricular size. Possible mild reduced right ventricular systolic
function.
27 mm bovine aortic valve replacement. Peak/mean gradients across the aortic
valve are 34/22 mmHg respectively. Dimensionless index 0.4. Moderate
bioprosthetic stenosis. No aortic regurgitation is seen.
Mild tricuspid regurgitation. Estimated pulmonary artery pressure of 38 mmHg
assuming a right atrial pressure of 3 mmHg.
No pericardial effusion.
Compared to previous echo 04/30/24, the LVEF has decreased from 65% to 40%.
CTA chest/abdomen/pelvis with contrast 04/01/2025:
Significantly limited examination secondary to motion artifact, the large body habitus, and the patient's arms down position.
No CTA evidence for an acute central pulmonary thromboembolus. Evaluation of the bilateral segmental and subsegmental pulmonary arteries is nondiagnostic.
Bilateral airspace opacities most suspicious for multifocal pneumonia, less likely alveolar pulmonary edema given the distribution.
Cardiomegaly.
Secondary findings suggesting a degree of right heart failure.
Superiorly displaced fracture at the superior endplate of L1, which appears acute and is new compared to the previous CT abdomen/pelvis. New distraction of L1-L2 intervertebral disc space.
CXR 04/02/2025:
Diminished lung volumes. Increased pulmonary parenchymal opacities, left greater than right, as described. Possible considerations include pulmonary edema, aspiration, pneumonia, and/or atelectasis.
Probable small left pleural effusion has developed.
Stable endotracheal tube. Nasogastric tube place, extending into the stomach.
CXR 04/03/2025:
Bilateral airspace opacities throughout both lungs, which appears slightly improved from most recent radiograph.
Interval removal of endotracheal tube.
Subjective Data
-
Date of Service:
Date of Service: April 08, 2025
Chief Complaint: Pulmonary Follow Up and Dyspnea Follow Up
Subjective:
Patient comfortably sitting in chair, not in any distress. Gets short of breath with activity.
Review of Systems
Genitourinary: Other (No new pulmonary symptoms reported)
Objective Data
Data Reviewed
Vital Signs / I&O / Oxygen:
Vital Signs
Temp Pulse Resp BP Pulse Ox
98.1 F 80 20 139/81 99
04/08/25 07:58 04/08/25 07:13 04/08/25 07:58 04/08/25 07:13 04/08/25 07:58
Intake and Output
04/07/25 04/08/25 04/09/25
06:59 06:59 06:59
Intake Total 1150 / 1150 1069 / 1069
Output Total 6200 / 6200 3925 / 3925
Balance -5050 / -5050 -2856 / -2856
SaO2 [CPAP/PSV] 93
SaO2 [A/C] 94
SaO2 99
Nasal Cannula flow liters per 6
minute
Physical Exam
General: Respiratory Distress (negative), Comfortable, Chills (negative) and Sweats (negative)
HEENT: Normocephalic and Anicteric
Cardiovascular: Peripheral Edema (1+ pedal edema bilaterally)
Respiratory: Wheeze (negative), Crackles (Trace), Rhonchi (negative) and Non-Labored Respirations
GI: Soft, Distended (Significant abdominal obesity), Non Tender and Normal Bowel Sounds
Neurology: AO x 3 and Tremors (negative)
Skin: Warm, Dry, Cyanosis (negative) and Jaundice (negative)
Labs/Micro/Reports
Lab Data
04/08/25 02:15
04/08/25 02:15
Laboratory Results
04/07/25 04/07/25 04/08/25
12:44 18:04 02:15
APTT 46.0 H 53.8 H 69.3 H
Microbiology
04/01/25 22:19 Blood/Venous Blood Culture - Final
No Growth - Final Report
04/01/25 16:55 Blood/Venous Blood Culture - Final
No Growth - Final Report
--- NOTE | 2025-04-08 09:37 | W.PN.CARDCBS ---
Addendum entered and electronically signed by Bryce Arriaza MD 04/08/25 15:46:
I saw and examined the patient.
The Manufacturing Plant Controller's note was reviewed and I agree with the note.
Comment: Briefly, 80-year-old man past medical history of bioprosthetic AVR, CAD s/p CABGx1, HFpEF and permanent AFib who presented following out of hospital VT/VF arrest.
Downgraded from ICU to IVU
Respiratory status is improved with IV Lasix and antibiotics�O2 requirement has been weaned down to 6 L
Renal function is improving but not yet at baseline. Appreciate nephrology input regarding diuretic dosing.
Remains in permanent rate controlled A-fib. No ventricular ectopy seen on telemetry.
Continue amiodarone load
Switch Nebivolol to Coreg
Eventual left heart catheterization when renal function stabilizes
ICD prior to discharge
Original Note:
Today's Communication / Plan
-
continue IV lasix
follow Cr
likely for L/RHC on Friday 04/13
continue IV heparin, asa
transition nebivolol to coreg
amio load
check EKG
ICD prior to DC
Impression / Plan
-
.
PCP: Dr. Mona Jerry
Card: Dr. VANESSA Calero
Impression:
Out of hospital cardiac arrest with CPR, AED shocks, external shocks and ROSC 04/01/25
collapsed in the main lobby of the hospital while there to register for an echo
VF
New CM EF 40-45%
Elevated troponin with peak 1.2
Acute renal failure, improving.
Acute on chronic HFpEF
CXR shows pulmonary edema 04/01/25
Permanent Afib on chronic Eliquis OAC
cRBBB
s/p tissue AVR for severe 04/06/2011
CAD s/p CABG with SVG to PDA 04/06/2011
HTN
Dyslipidemia
Morbid obesity
Hypothyroidism
Echo 04/30/2024: EF 65 to 70%, moderate concentric LVH, mild MS peak/mean 13/5 mmHg, mild MR, well-seated tissue AVR with peak/mean 45/29 mmHg, mild TR with PAP 41 mmHg
Echo April 01 2025: EF 40-45% mod LVH marked paradoxical septal motion. #27 mm bovine AVR with peak/mean grad 34/22 mmHG mod bioprosthetic stenosis with mild TR and PASp 38 mmHg.
Hx: Patient had an [id number] cardiac arrest while in the main lobby registering for outpatient testing and cardiology responded for the overhead call of a code and is now consulted. Patient saw Dr. Gavin in the office on 10/14/2024 and felt that
he was doing well from a cardiac standpoint although there was some concern for bioprosthetic AVR dysfunction, plan was to check an outpatient echo. Patient presented to [facility] main lobby today to register for his outpatient echo and while walking
through the vestibule to reach the lobby he collapsed, a bystander reports patient was walking and then was suddenly on the ground. Situation was recognized situation was recognized, CPR started, AED applied, shock advised and given, CPR resumed
AED advised another shock which was given, and that time additional personnel arrived and patient was placed on heart monitor that showed VF, patient shocked using external defibrillator, a total of 3 rounds of epi was given, patient then with
asystole and was given additional CPR then VF and then another shock and since then has been in A-fib with his chronic RBBB. During this patient was also intubated and was found to have blood in his mouth prior to intubation. Patient was
stabilized transferred to a stretcher and moved to the ER.
Plan:
-continues to improve. has had marked recovery considering presentation
-reports some continued SOB particularly with exertion. continue IV lasix 80mg daily. Cr continues to trend down, 1.7 on 04/08. appreciate nephrology
-plan for L/RHC when respiratory status optimized and renal function normalizes. likely Friday 04/13
-continue IV heparin, asa. no CP
-remains in rate controlled afib on review of tele overnight. he has permanent afib.
-continue amiodarone loading for VT/VF. has received 2gram load thus far. plan for transition to 200mg BID for 1 month upon DC, then decrease to 200mg daily.
-check EKG today to assess QTc on amiodarone.
-EF 40-45% by echo. will transition OP nebivolol to coreg 3.125mg BID. holding nikia/arb/aldactone/sglt2 for now given JAMES.
-Eventual ICD for secondary prevention, prior to d/c given VT/VF cardiac arrest on presentation.
-PT/OT
-d/w nursing
Progress Note - Trial Mgr
Subjective
Date of Service: April 08, 2025
Reports remains with some shortness of breath particularly with exertion. No chest pain or palpitations
Objective
Labs:
04/08/25 02:15
04/08/25 02:15
Labs
Hgb 9.1 g/dL (13.0-18.0) L 04/08/25 02:15
Hct 27.5 % (39.0-52.0) L 04/08/25 02:15
Plt Count 164 10^3/uL (130-400) 04/08/25 02:15
PT 17.9 Sec (11.4-14.6) H 04/02/25 04:35
INR 1.42 04/02/25 04:35
APTT 69.3 Sec (23.4-35.0) H 04/08/25 02:15
Sodium 143 mmol/L (135-145) 04/08/25 02:15
Potassium 4.1 mmol/L (3.5-5.1) 04/08/25 02:15
BUN 71 mg/dl (9-20) H 04/08/25 02:15
Creatinine 1.7 mg/dL (0.7-1.3) H 04/08/25 02:15
Glucose 116 mg/dl (70-99) H 04/08/25 02:15
Vital Signs and I&O:
Vital Signs
Temp Pulse Resp BP Pulse Ox
98.1 F 80 20 139/81 99
04/08/25 07:58 04/08/25 07:13 04/08/25 07:58 04/08/25 07:13 04/08/25 09:21
Vital Signs
Temp Pulse Resp BP Pulse Ox
98.1 F 80 20 139/81 99
04/08/25 07:58 04/08/25 07:13 04/08/25 07:58 04/08/25 07:13 04/08/25 09:21
Intake & Output
04/06/25 04/07/25 04/08/25 04/09/25
07:59 07:59 07:59 07:59
Intake Total 810 / 840 1150 / 1283 1069 / 1069
Output Total 5450 / 5850 6200 / 6450 3925 / 3925
Balance -4640 / -5010 -5050 / -5167 -2856 / -2856
Physical Exam
Physical Exam
GEN: No distress, awake, alert, oriented x3. obese
HEENT: supple, anicteric, mmm, eomi
LUNGS: Crackles B/L bases, no wheezes
CV: Irreg, S1/S2, 2/6 syst LSB
ABD: soft, BS+, NT/ND
EXT: No cyanosis, clubbing, edema
NEURO: Gross non-focal
SKIN: Warm, pink, dry. No rash
[2025-04-08] MEDS: NOVOLOG FLEXPEN 3 UNITS SC ×3 (09:57→22:25)
[2025-04-08] MEDS: LOW STRENGTH ASPIRIN 324 MG PO (10:00)
--- NOTE | 2025-04-08 11:17 | W.PN.HOSP.TC ---
Today's Communication/Plan
-
continue IV diuresis
Amio load
Finish abx course
steroid taper continues
L/RHC Sunday
Assessment / Plan
Assessment / Plan
Assessment:
VT/VF cardiac arrest
Cardiogenic Shock
Coronary Artery Disease
Hx CABG
Acute on chronic HFpEF
Acute Respiratory Failure
-patient s/p 2 shocks for VT/VF, IV Epi x 3, currently oral amiodarone
-s/p intubation later extubated 04/02 to BIPAP weaned off to midflow. now 7L NC
-speech eval appreciated: regular diet
-weaned off pressors
-Retail Special Event Associate Consult appreciated - continue steroids and wean as able
-Cardiology consult appreciated eventual Left and Right heart cath and ICD prior to discharge. home bystolic resumed reduce dose
-cont hep gtt with eventual transition to Eliquis
-CT Head appreciated no acute abn's
-EEG appreciated no sz activity, Moderately abnormal EEG for age due to moderately diffuse bihemispheric slowing
-Neurology consult appreciated
-ECHO appreciated EF 40-45% decreased from previous ECHO EF 65%
Prediabetes A1c 5.8
Steroid induced hyperglycemia
- Sliding scale
- continue meal time insulin
- monitor and titrate insulin regimen as necessary.
White Count Elevation
Steroid induced Leukocytosis
Concern for aspiration PNA
Right hand/arm Swelling at IV site reported Unasyn infiltration overnight
- trend WBC
- Follow cultures
- ID eval appreciated cont Unasyn course
JAMES likely cardiorenal
Metabolic Acidosis
Mild Hyperkalemia
- brief bicarb gtt as per ICU completed
- monitor renal function
- Cr trended up to peak 2.9 improving with aggressive diuresis as per Nephro; currently 1.7
- Nephro eval appreciated
parox Atrial Fibrillation
- IV amiodarone gtt switched to PO Amiodarone 400 mg TID, cont as per cardio
-cont hep gtt with eventual transition to Eliquis
Hx Aortic Valve replacement
Essential HTN
- home Bystolic resumed reduced dose as per Cardio
- Lasix as per Nephro
- monitor and titrate antihypertensive regimen as necessary
Stage 1 right middle flank pressure injury, POA
- local wound care
Hyperlipidemia
Mild Transaminitis likely 2/2 liver injury d/t cardiac arrest as above
- Transaminitis significant improved/resolving
- home statin resumed
Hypothyroidism
- cont home Synthroid
DVT ppx: Heparin drip
Code: Full
Anticipated Discharge: > 48 hours
Subjective/Interval History
-
Date of Service: April 08, 2025
no new complaints
on 7L from 10L [place]
denies cp or sob
Cr 1.7
Objective Data
-
Labs:
Laboratory Results
04/08/25 04/08/25
02:15 10:52
WBC 13.3 H
Hgb 9.1 L
Hct 27.5 L
Plt Count 164
APTT 69.3 H Pending
Sodium 143
Potassium 4.1
Chloride 108 H
Carbon Dioxide 33 H
BUN 71 H
Creatinine 1.7 H
Glucose 116 H
Calcium 8.6
Vital Signs:
Vital Signs
Temp Pulse Resp BP Pulse Ox
98.1 F 80 20 139/81 99
04/08/25 07:58 04/08/25 07:13 04/08/25 07:58 04/08/25 07:13 04/08/25 09:21
I&O
04/07/25 04/08/25 04/09/25
06:59 06:59 06:59
Intake Total 1150 / 1150 1069 / 1069
Output Total 6200 / 6200 3925 / 3925
Balance -5050 / -5050 -2856 / -2856
Physical Exam
-
General: No Apparent Distress
HEENT: Normocephalic and Atraumatic
Respiratory: Negative Wheezes
Cardiac: Regular Rhythm and S1/S2
GI: Soft
Musculoskeletal: Edema, Right Lower Extrem and Edema, Left Lower Extrem
Neuro: AO x 3
Psych: Calm
Data Reviewed
-
Total Time Spent with Patient (in minutes): 51
Labs: Labs Reviewed by me
[2025-04-08 11:31] LABS: APTT 51.4 Sec (23.4-35.0)
--- NOTE | 2025-04-08 11:51 | W.PN.NEPH.PH ---
Today's Communication / Plan
-
Continue Lasix 80 daily
Assessment/Plan
-
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
presents with cardiac arrest. Patient was here in the hospital going for an echo that was ordered as an outpatient. He follows with blast furnace keeper, Dr. Raymon Calero, last saw him in the office on 10/14/2024. Due to his history of chronic HFpEF, an
echo was ordered for him which is why he was here today. While walking through the hospital lobby, he collapsed and had no pulse.
Renal consultation for acute kidney injury with creatinine increasing from normal baseline. Significantly hypotension. Was on pressor support briefly. Was intubated and then extubated rather quickly.
Takes furosemide regularly outpatient. He has not noticed any significant weight gain prior to admission.
Impression.
Acute kidney injury likely hemodynamic mediated early ATN.
CHF new ejection fraction 40 to 45% from 60% April 2024
Status post cardiac arrest.
Atrial fibrillation rate controlled.
CAD status post CABG.
Plan.
continue IV lasix
follow BMP
Prefer to see Cr < 1.5 before cath
-
-
Date of Service: April 08, 2025
CC / HPI / ROS
-
Chief Complaint:
sob
History of Present Illness:
JAMES in setting of cardiorenal/hypotension
diuresing will with IV lasix for decompensated HF
JAMES/Cr improving
Hgb stable low 9.0
BP stable
remains on supplemental O2
Review of Systems:
no CP
mild SOB
Labs
-
Labs:
WBC 13.3 10^3/uL (4.8-10.8) H 04/08/25 02:15
RBC 3.19 10^6/uL (4.70-6.10) L 04/08/25 02:15
Hgb 9.1 g/dL (13.0-18.0) L 04/08/25 02:15
Hct 27.5 % (39.0-52.0) L 04/08/25 02:15
Plt Count 164 10^3/uL (130-400) 04/08/25 02:15
Sodium 143 mmol/L (135-145) 04/08/25 02:15
Potassium 4.1 mmol/L (3.5-5.1) 04/08/25 02:15
Chloride 108 mmol/L (98-107) H 04/08/25 02:15
Carbon Dioxide 33 mmol/L (22-30) H 04/08/25 02:15
BUN 71 mg/dl (9-20) H 04/08/25 02:15
Creatinine 1.7 mg/dL (0.7-1.3) H 04/08/25 02:15
eGFR 40.75 04/08/25 02:15
Glucose 116 mg/dl (70-99) H 04/08/25 02:15
Calcium 8.6 mg/dl (8.4-10.2) 04/08/25 02:15
Phosphorus 4.6 mg/dl (2.5-4.5) H 04/08/25 02:15
Sno-A-Ztqfztytaic Pept 39333 pg/ml 04/04/25 04:46
Albumin 3.9 g/dl (3.5-5.0) 04/05/25 05:20
Physical Exam
-
Vital Signs:
Vital Signs
Temp Pulse Resp BP Pulse Ox
97.7 F 80 22 139/81 94
04/08/25 11:20 04/08/25 07:13 04/08/25 11:20 04/08/25 07:13 04/08/25 11:20
Cardiovascular:: Regular rate and rhythm
Respiratory:: Bilateral: Coarse
Lung Excursion:: Normal
Abdomen:: Nontender and Soft
Bowel Sounds:: Normal
Extremity Edema:: +2: Bilateral:
[2025-04-08 11:55] LABS: Glucose - Point of Care 185 mg/dl (70-99)
[2025-04-08] MEDS: HEPARIN 25000 UNITS/250 ML IV (12:14)
[2025-04-08] MEDS: FEOSOL 325 MG PO (12:17)
[2025-04-08] MEDS: NOVOLOG FLEXPEN-MODERATE RESISTANCE 1 UNITS SC ×3 (12:20→22:26)
[2025-04-08] MEDS: NOVOLOG FLEXPEN SC (12:21)
--- NOTE | 2025-04-08 13:57 | CM ---
Patient has transferred to IVU from alternative floor.
Reviewed initial assessment. Pt. resides alone in a 3rd fl[address]. apartment w/o any DENIS.
Functionally, patient is indep. at baseline w/ ADLs, mobility. Pt. has a RW at home, which he does not use.
Met w/ patient at bedside. Reviewed role of CM. Discussed DC plan for SNF placement. Pt. agreeable to this. He states that his family is planning to come tomorrow to visit and he will discuss w/ them.
Will follow up then.
[2025-04-08 17:31] LABS: Glucose - Point of Care 174 mg/dl (70-99)
[2025-04-08] MEDS: FLOMAX 0.4 MG PO (17:57)
[2025-04-08 18:41] LABS: APTT 99.0 Sec (23.4-35.0)
--- NOTE | 2025-04-08 19:07 | PTCARENOTE ---
Pt OOB to the chair for most of the day. Pt able to stand with minimal assist of 2 and to walk @20 feet around the room using a walker. Pt is very limited by SHEPPARD, he remains on 6L O2 with saturation of 99%. Pt diuresing well after IV lasix via
solis catheter. Pt is oriented X 3. He reports sternal discomfort from receiving CPR with adequate pain relief from lidocaine patch and tylenol. Telemetry shows atrial fib with RBBB, no ectopy noted. Pt states good understanding of plan of care with
cardiac cath next week.
[2025-04-08] MEDS: COREG 3.125 MG PO (19:32)
[2025-04-08] MEDS: REMOVE LIDOCAINE PATCH 1 PATCH REMOVE (20:30)
[2025-04-08 21:53] LABS: Glucose - Point of Care 159 mg/dl (70-99)
[2025-04-09] VITALS (9 sets, daily range): BP systolic 117–149; BP diastolic 69–90; PULSE 90–120; O2SAT 93; BMI 46.1
[2025-04-09] MEDS: HEPARIN 25000 UNITS/250 ML IV ×2 (00:31→14:04)
[2025-04-09 00:53] LABS: APTT 105.9 Sec (23.4-35.0)
--- NOTE | 2025-04-09 03:19 | PTCARENOTE ---
Received pt @ change of shift. AAOx3, VSS on 6L NC, A-fib with BBB on monitor. Denies any pain @ this time. Catheter in place for JAMES. Heparin gtt running @ 2000 units/hr through L AC. Discussed plan of care. Pt verbalizes understanding. Call allen
within reach.
[2025-04-09 05:58] LABS: Venous Blood Gas B.E. 3.8 mmol/L (-4 to +4); Venous Blood Gas O2 Sat % 99.7 %
[2025-04-09 05:59] LABS: Hematocrit 27.9 % (39.0-52.0); Hemoglobin 9.2 g/dL (13.0-18.0); Mean Corp Hgb Conc. 33.0 g/dL (33.0-37.0); Mean Corpuscular Volume 88.0 fL (80.0-94.0); Platelet Count 181 10^3/uL (130-400); Red Cell Dist. Width 17.1 % (11.5-14.5)
[2025-04-09 06:14] LABS: APTT 106.8 Sec (23.4-35.0)
[2025-04-09] MEDS: SYNTHROID 150 MCG PO (06:26)
[2025-04-09 06:46] LABS: Blood Urea Nitrogen 57 mg/dl (9-20); Calcium 8.6 mg/dl (8.4-10.2); Carbon Dioxide 28 mmol/L (22-30); Chloride 107 mmol/L (98-107); Estimated Creatinine Clearance 57 ml/min; Glucose 102 mg/dl (70-99); Magnesium 2.7 mg/dl (1.6-2.3); Potassium 4.3 mmol/L (3.5-5.1); Sodium 141 mmol/L (135-145); eGFR 51.45
[2025-04-09] MEDS: PULMICORT 0.5 MG INH (07:10)
[2025-04-09] MEDS: DUONEB 3 ML INH ×2 (07:10→19:37)
[2025-04-09 08:28] LABS: Glucose - Point of Care 116 mg/dl (70-99)
[2025-04-09] MEDS: LIDOCAINE 4% PATCH 1 PATCH TOPICAL (08:37)
[2025-04-09] MEDS: FEOSOL 325 MG PO (08:39)
[2025-04-09] MEDS: ROBITUSSIN 200 MG PO ×4 (08:39→22:24)
[2025-04-09] MEDS: DELTASONE 30 MG PO (08:39)
[2025-04-09] MEDS: LASIX 80 MG IV (08:43)
[2025-04-09] MEDS: COREG 3.125 MG PO ×2 (08:43→20:41)
[2025-04-09] MEDS: LOW STRENGTH ASPIRIN 81 MG PO (08:43)
[2025-04-09] MEDS: LIPITOR 40 MG PO (08:43)
[2025-04-09] MEDS: PACERONE 200 MG PO ×2 (08:51→20:41)
[2025-04-09] MEDS: TYLENOL 650 MG PO ×2 (09:19→22:24)
--- NOTE | 2025-04-09 09:35 | PTCARENOTE ---
Pt unable to lie flat even to be pulled up the bed due to sternal discomfort and SOB. Pt states he would be unable to be any flatter than 45degrees to have a cardiac cath today.
[2025-04-09] MEDS: NOVOLOG FLEXPEN-MODERATE RESISTANCE SC (09:38)
--- NOTE | 2025-04-09 10:00 | W.PN.CARDCBS ---
Addendum entered and electronically signed by Kev Blum MD 04/09/25 11:53:
Hx: Patient had an [id number] cardiac arrest while in the main lobby registering for outpatient testing and cardiology responded for the overhead call of a code and is now consulted. Patient saw Dr. Gavin in the office on 10/14/2024 and felt that
he was doing well from a cardiac standpoint although there was some concern for bioprosthetic AVR dysfunction, plan was to check an outpatient echo. Patient presented to [facility] main lobby today to register for his outpatient echo and while walking
through the vestibule to reach the lobby he collapsed, a bystander reports patient was walking and then was suddenly on the ground. Situation was recognized situation was recognized, CPR started, AED applied, shock advised and given, CPR resumed
AED advised another shock which was given, and that time additional personnel arrived and patient was placed on heart monitor that showed VF, patient shocked using external defibrillator, a total of 3 rounds of epi was given, patient then with
asystole and was given additional CPR then VF and then another shock and since then has been in A-fib with his chronic RBBB. During this patient was also intubated and was found to have blood in his mouth prior to intubation. Patient was
stabilized transferred to a stretcher and moved to the ER.
PCP: Dr. Mona Jerry
Card: Dr. VANESSA Calero
Patient seen, interviewed and examined by me.
He continues to complain of chest discomfort when he lays flat.
Well-appearing, no acute distress
Regular rate and rhythm with normal S1 and S2, no S3 no S4. There is a grade 1/6 apical holosystolic murmur and no rubs. PMI is normally placed.
Lungs are clear to auscultation bilaterally without wheezes rales or rhonchi.
Abdomen soft nontender nondistended with normoactive bowel sounds
Extremities show trace pretibial edema bilaterally no clubbing or cyanosis.
Neurologic exam is grossly nonfocal.
Impression:
Out of hospital cardiac arrest with CPR, AED shocks, external shocks and ROSC 04/01/25
collapsed in the main lobby of the hospital while there to register for an echoVF
New CM EF 40-45%
Elevated troponin with peak 1.2
Acute renal failure, improving.
Acute on chronic HFpEF
CXR shows pulmonary edema 04/01/25Permanent Afib on chronic Eliquis OAC
cRBBB
s/p tissue AVR for severe 04/06/2011
CAD s/p CABG with SVG to PDA 04/06/2011
HTN
Dyslipidemia
Morbid obesity
Hypothyroidism
Echo 04/30/2024: EF 65 to 70%, moderate concentric LVH, mild MS peak/mean 13/5 mmHg, mild MR, well-seated tissue AVR with peak/mean 45/29 mmHg, mild TR with PAP 41 mmHg
Echo April 01 2025: EF 40-45% mod LVH marked paradoxical septal motion. #27 mm bovine AVR with peak/mean grad 34/22 mmHG mod bioprosthetic stenosis with mild TR and PASp 38 mmHg.
Plan:
Overall he continues to demonstrate clinical improvement after his cardiac arrest and resuscitation.
Background etiology of cardiac arrest is not completely clear. Initial rhythm was ventricular fibrillation. Troponin peaked at only 1.2. He does have new left ventricular systolic dysfunction which is mild. The possibility of coronary artery
disease remains a concern. We discussed possible cardiac catheterization today, however patient reports with lying flat he gets short of breath as well as significant chest discomfort related to his prior CPR. He refuses cath today and plan will
be to reassess, likely for coronary angiography on Friday 04/13 when he is more medically optimized.
Creatinine continues to improve, 1.4 on 04/09.
Continue IV Lasix 80 mg daily. Appreciate nephrology input
Continue IV heparin, aspirin
Ventricular fibrillation and cardiac arrest
Pending further evaluation, we are planning for coronary angiography on April 13.
Maintain amiodarone
He will need secondary prevention ICD prior to discharge. He has permanent atrial fibrillation by history and remains in atrial fibrillation, he has right bundle branch block, likely will plan for single-chamber ICD
Heart failure with mildly reduced ejection fraction
The mildly reduced ejection fraction is in the setting of his acute event/cardiac arrest
Eventually repeat echocardiogram
Outpatient Nebivolol transition to Coreg this admission. Holding nikia/arb/aldactone/sglt2 for now given JAMES.
He will need secondary prevention ICD prior to discharge. He has permanent atrial fibrillation by history and remains in atrial fibrillation, he has right bundle branch block, likely will plan for single-chamber ICD
Atrial fibrillation which is been described as permanent.
Plan is for rate control and oral anticoagulation. Eventually resume Eliquis.
Tissue AVR, most recent echocardiogram find stable peak and mean gradients.
PT/OT
Original Note:
Today's Communication / Plan
-
Continue medical optimization, IV diuresis
Creatinine improving
Plan for cardiac catheterization Friday 04/13
Continue amiodarone. Follow QTc
ICD prior to discharge
Impression / Plan
-
.
PCP: Dr. Mona Jerry
Card: Dr. VANESSA Calero
Impression:
Out of hospital cardiac arrest with CPR, AED shocks, external shocks and ROSC 04/01/25
collapsed in the main lobby of the hospital while there to register for an echo
VF
New CM EF 40-45%
Elevated troponin with peak 1.2
Acute renal failure, improving.
Acute on chronic HFpEF
CXR shows pulmonary edema 04/01/25
Permanent Afib on chronic Eliquis OAC
cRBBB
s/p tissue AVR for severe 04/06/2011
CAD s/p CABG with SVG to PDA 04/06/2011
HTN
Dyslipidemia
Morbid obesity
Hypothyroidism
Echo 04/30/2024: EF 65 to 70%, moderate concentric LVH, mild MS peak/mean 13/5 mmHg, mild MR, well-seated tissue AVR with peak/mean 45/29 mmHg, mild TR with PAP 41 mmHg
Echo April 01 2025: EF 40-45% mod LVH marked paradoxical septal motion. #27 mm bovine AVR with peak/mean grad 34/22 mmHG mod bioprosthetic stenosis with mild TR and PASp 38 mmHg.
Hx: Patient had an nfi-sy-[id number] cardiac arrest while in the main lobby registering for outpatient testing and cardiology responded for the overhead call of a code and is now consulted. Patient saw Dr. Gavin in the office on 10/14/2024 and felt that
he was doing well from a cardiac standpoint although there was some concern for bioprosthetic AVR dysfunction, plan was to check an outpatient echo. Patient presented to [facility] main lobby today to register for his outpatient echo and while walking
through the vestibule to reach the lobby he collapsed, a bystander reports patient was walking and then was suddenly on the ground. Situation was recognized situation was recognized, CPR started, AED applied, shock advised and given, CPR resumed
AED advised another shock which was given, and that time additional personnel arrived and patient was placed on heart monitor that showed VF, patient shocked using external defibrillator, a total of 3 rounds of epi was given, patient then with
asystole and was given additional CPR then VF and then another shock and since then has been in A-fib with his chronic RBBB. During this patient was also intubated and was found to have blood in his mouth prior to intubation. Patient was
stabilized transferred to a stretcher and moved to the ER.
Plan:
- continues to improve. has had marked recovery considering presentation
- Suspect weight from yesterday inaccurate, weight continues to trend down. Creatinine continues to improve, 1.4 on 04/09. Discussed possible cardiac catheterization today, however patient reports with lying flat he gets short of breath as well as
significant chest discomfort related to his prior CPR
- Will allow him to continue to heal and attempt to medically optimize him with plan for left/right heart cath on Friday 04/13
- Continue IV Lasix 80 mg daily. Appreciate nephrology input
- Continue IV heparin, aspirin
- remains in rate controlled afib on review of tele overnight. he has permanent afib.
- continue amiodarone for VT/VF. he has had no ventricular ectopy on review of tele overnight. QTc mildly prolonged on EKG 04/08. Amiodarone dose decreased to 200 mg twice daily
- EF 40-45% by echo. Outpatient Nebivolol transition to Coreg this admission. holding nikia/arb/aldactone/sglt2 for now given JAMES.
- Eventual ICD for secondary prevention, prior to d/c given VT/VF cardiac arrest on presentation.
- PT/OT
- d/w nursing. d/w hospitalist
Progress Note - Cardiac Cath Rn
Subjective
Date of Service: April 09, 2025
Reports feeling fine sitting at approximately 45 degree angle. With attempting to lie flat, patient developed shortness of breath and chest discomfort, improved with sitting back up
Objective
Labs:
04/09/25 05:40
04/09/25 05:40
Labs
Hgb 9.2 g/dL (13.0-18.0) L 04/09/25 05:40
Hct 27.9 % (39.0-52.0) L 04/09/25 05:40
Plt Count 181 10^3/uL (130-400) 04/09/25 05:40
PT 17.9 Sec (11.4-14.6) H 04/02/25 04:35
INR 1.42 04/02/25 04:35
APTT 106.8 Sec (23.4-35.0) H 04/09/25 05:40
Sodium 141 mmol/L (135-145) 04/09/25 05:40
Potassium 4.3 mmol/L (3.5-5.1) 04/09/25 05:40
BUN 57 mg/dl (9-20) H 04/09/25 05:40
Creatinine 1.4 mg/dL (0.7-1.3) H 04/09/25 05:40
Glucose 102 mg/dl (70-99) H 04/09/25 05:40
Vital Signs and I&O:
Vital Signs
Temp Pulse Resp BP Pulse Ox
97.8 F 78 20 134/78 96
04/09/25 06:45 04/09/25 07:11 04/09/25 07:11 04/09/25 06:46 04/09/25 09:09
Vital Signs
Temp Pulse Resp BP Pulse Ox
97.8 F 78 20 134/78 96
04/09/25 06:45 04/09/25 07:11 04/09/25 07:11 04/09/25 06:46 04/09/25 09:09
Intake & Output
04/07/25 04/08/25 04/09/25 04/10/25
07:59 07:59 07:59 07:59
Intake Total 1150 / 1283 1069 / 1069 720 / 720
Output Total 6200 / 6450 3925 / 3925 3475 / 3475
Balance -5050 / -5167 -2856 / -2856 -2755 / -2755
Physical Exam
Physical Exam
GEN: No distress, awake, alert, oriented x3. obese
HEENT: supple, anicteric, mmm, eomi
LUNGS: Few crackles B/L bases, no wheezes
CV: Irreg, S1/S2, 2/6 syst LSB
ABD: soft, BS+, NT/ND
EXT: No cyanosis, clubbing. trace edema of B/L LE
NEURO: Gross non-focal
SKIN: Warm, pink, dry. No rash
--- NOTE | 2025-04-09 10:23 | W.PN.PUL3 ---
Today's Communication / Plan
-
- Continue Prednisone until 04/11, then d/c
- Discontinue scheduled budesonide. Can continue DuoNeb for now and switch to as needed over coming days
-Wean oxygen as tolerated, target oxygen saturation above 90%
- Pulmonary service will sign off, please call as needed
- Out patient follow up with Pulm clinic in coming weeks.
Assessment
-
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
presents with cardiac arrest. Patient was here in the hospital going for an echo that was ordered as an outpatient. He follows with cartographic aide, Dr. Raymon Calero, last saw him in the office on 10/14/2024. Due to his history of chronic HFpEF, an
echo was ordered for him which is why he was here today. While walking through the hospital lobby, he collapsed and had no pulse. There was approximately 5 minutes or so before CPR was started. He was noted to have blood coming out of his mouth
and when he was finally intubated, there was frequent suctioning of straight blood coming from the endotracheal tube. The monitor was placed and he was found to be in V-fib and he was shocked. Epinephrine x 3 was given. Patient was shocked for a
total of 2 times. Also given amiodarone and then was transferred to the ER for further stabilization. Due to hypotension, Levophed was started. CT head showed no evidence of an acute intracranial abnormality and CTA chest showed no evidence of
any PE or an acute aortic dissection, and there was evidence of pulmonary edema and pneumonia. Initial temperature 97.2 �F. Initial pulse rate 139, respiratory rate 20, BP 79/49 and he was saturating 92% via ventilator. Initial labs pertinent for
mild leukocytosis to 14.9, Hb 10.7, INR 1.39, initial lactate 2.4, initial troponin 0.067, and proBNP 1550. Patient was then transferred to the ICU and Rubber Tire Curer services consulted for additional management/recommendations.
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
Assessment and Plan:
#1. Acute hypoxic respiratory failure, Aspiration pneumonia post cardiac arrest (V Fib/VT) and CPR
- Intubated 04/01, extubated 04/02, currently on nasal cannula at 6 L, saturating around 96%
- Blood cultures, RSV, influenza, COVID-19 screen negative. All cultures have stayed negative.
- Patient has been on steroids due to severity of pneumonia as well as Unasyn, infectious disease service on case, antibiotics discontinued now
- Currently on prednisone 30 mg, last dose 04/11.
- Discontinue nebulized budesonide.
- Can continue DuoNeb for now.
#2. Acute on chronic heart failure with reduced ejection fraction
- LVEF 40 to 45% with moderate aortic stenosis of bioprosthetic aortic valve
- Cardiology service on case, currently on IV Lasix
- Good urine output, -2 L
#3. Pulmonary hypertension
- Suspect group II. Pulmonary artery pressure around 38 mm on echo. Known low EF of 40 to 45% along with moderate aortic stenosis.
- In view of morbid obesity, might have component of group III also. Will need pulmonary function testing, 6-minute walk test and sleep study as outpatient
- Cardiology notes reviewed, plan for right heart cath and left heart cath once renal function is more stable
- Maintain oxygen saturation more than 90%, target euvolemia
#4. s/p Cardiac arrest with V Fib/VT, with shock x2 and epi x3 s/p ROSC (reported downtime about 15 minutes)
-Cardiology service on case
-Plan for left heart cath and right heart cath once renal function more stable
-Ischemic evaluation with left heart cath pending
-Currently anticoagulated with heparin infusion
-Likely will need AICD placement, management per cardiology service
#4. NSTEMI type II due to above versus acute coronary syndrome
-Currently on aspirin, Nebivolol, atorvastatin, heparin infusion
-Left heart cath timing to be determined
#5. S/p bioprosthetic AVR complicated by bioprosthetic aortic valve stenosis
- Management per Cardiology service
#6. Morbid obesity
- High pretest probability of underlying sleep disordered breathing
- Will pursue sleep study as outpatient
- VBG this morning shows a pCO2 of 43. No evidence of acute narcosis. Further workup as outpatient
Other medical diagnoses:
#Chronic A-fib with RBBB. Benjamin currently on hold, on amiodarone p.o. as well as heparin infusion
#Hypothyroidism
#Hyperlipidemia
#Hypertension
Pulmonary team will sign off. Will pursue outpatient workup for suspected sleep apnea
A total of 38 minutes of critical care time was provided for this patient today. This includes management of unstable vital signs, evaluation of the patient at bedside, reviewing the patient's pertinent medical records including radiographs,
microbiology, laboratory evaluations, and discussion with primary team, consultants, pharmacy, nutrition, physical therapy, case management, charge nurse, critical care nursing, and respiratory therapy.
Data:
ECHO 03/2025: Left ventricle is small in size. Moderate concentric left ventricular
hypertrophy. Marked paradoxical septal motion. Mild-moderately reduced left
ventricular systolic function. Left ventricular ejection fraction is 40-45 % by
visual estimate. Diastolic function indeterminate.
Normal right ventricular size. Possible mild reduced right ventricular systolic
function.
27 mm bovine aortic valve replacement. Peak/mean gradients across the aortic
valve are 34/22 mmHg respectively. Dimensionless index 0.4. Moderate
bioprosthetic stenosis. No aortic regurgitation is seen.
Mild tricuspid regurgitation. Estimated pulmonary artery pressure of 38 mmHg
assuming a right atrial pressure of 3 mmHg.
No pericardial effusion.
Compared to previous echo 04/30/24, the LVEF has decreased from 65% to 40%.
CTA chest/abdomen/pelvis with contrast 04/01/2025:
Significantly limited examination secondary to motion artifact, the large body habitus, and the patient's arms down position.
No CTA evidence for an acute central pulmonary thromboembolus. Evaluation of the bilateral segmental and subsegmental pulmonary arteries is nondiagnostic.
Bilateral airspace opacities most suspicious for multifocal pneumonia, less likely alveolar pulmonary edema given the distribution.
Cardiomegaly.
Secondary findings suggesting a degree of right heart failure.
Superiorly displaced fracture at the superior endplate of L1, which appears acute and is new compared to the previous CT abdomen/pelvis. New distraction of L1-L2 intervertebral disc space.
CXR 04/02/2025:
Diminished lung volumes. Increased pulmonary parenchymal opacities, left greater than right, as described. Possible considerations include pulmonary edema, aspiration, pneumonia, and/or atelectasis.
Probable small left pleural effusion has developed.
Stable endotracheal tube. Nasogastric tube place, extending into the stomach.
CXR 04/03/2025:
Bilateral airspace opacities throughout both lungs, which appears slightly improved from most recent radiograph.
Interval removal of endotracheal tube.
Subjective Data
-
Date of Service:
Date of Service: April 09, 2025
Chief Complaint: Pulmonary Follow Up and Dyspnea Follow Up
Subjective:
Patient comfortably sitting in bed, on supplemental oxygen, reports feeling well.
Review of Systems
Genitourinary: Other (No new pulmonary symptoms reported. Continues to have orthopnea)
Objective Data
Data Reviewed
Vital Signs / I&O / Oxygen:
Vital Signs
Temp Pulse Resp BP Pulse Ox
97.8 F 78 20 134/78 96
04/09/25 06:45 04/09/25 07:11 04/09/25 07:11 04/09/25 06:46 04/09/25 09:09
Intake and Output
04/08/25 04/09/25 04/10/25
06:59 06:59 06:59
Intake Total 1069 / 1069 480 / 480 240 / 240
Output Total 3925 / 3925 2325 / 2325 1150 / 1150
Balance -2856 / -2856 -1845 / -1845 -910 / -910
SaO2 [CPAP/PSV] 93
SaO2 [A/C] 94
SaO2 96
Nasal Cannula flow liters per 6
minute
Physical Exam
General: Respiratory Distress (negative), Comfortable, Chills (negative) and Sweats (negative)
HEENT: Normocephalic and Anicteric
Cardiovascular: Peripheral Edema (Improving)
Respiratory: Wheeze (negative), Crackles (Trace), Rhonchi (negative) and Non-Labored Respirations
GI: Soft, Distended (Significant abdominal obesity), Non Tender and Normal Bowel Sounds
Neurology: AO x 3 and Tremors (negative)
Skin: Warm, Dry, Cyanosis (negative) and Jaundice (negative)
Labs/Micro/Reports
Lab Data
04/09/25 05:40
04/09/25 05:40
Laboratory Results
04/08/25 04/08/25 04/09/25
10:52 18:18 00:27
APTT 51.4 H 99.0 H 105.9 H
04/09/25
05:40
APTT 106.8 H
Microbiology
04/01/25 22:19 Blood/Venous Blood Culture - Final
No Growth - Final Report
04/01/25 16:55 Blood/Venous Blood Culture - Final
No Growth - Final Report
--- NOTE | 2025-04-09 10:32 | W.PN.ID1 ---
Date of Service
Date of Service: April 09, 2025
Today's Communication
Sign off
Assessment / Plan
Aspiration pneumonia
Leukocytosis
JAMES
S/p cardiac arrest; successful ACLS
CAD
CHF
HTN
HLD
Hx AVR
Morbid obesity (BMI = 49)
Hx BPH
Hypothyroidism
Recommendations:
Ongoing leukocytosis noted, but patient also remains on steroids at this time.
Patient clinically stable following course of antibiotics for aspiration pneumonia.
Currently doing well off antibiotics.
Nothing further to add from an Infectious Diseases standpoint.
Will see again at your request.
����������������������������������������������������������
Chief Complaint
-: Leukocytosis and Pneumonia
Subjective / Review of Systems
Review of Systems: No Fever and No Chills
Vital Signs / Physical Exam
Vital Signs
Vital Signs
Temp Pulse Resp BP Pulse Ox
97.8 F 78 20 134/78 96
04/09/25 06:45 04/09/25 07:11 04/09/25 07:11 04/09/25 06:46 04/09/25 09:09
Physical Exam
Constitutional: No Acute Distress
Eyes: Sclera Anicteric
Cardiovascular: S1/S2; Negative S3/S4
Pulmonary: Wheezes, Coarse and Non Labored
Gastrointestinal: Soft, Non Distended and Normal Bowel Sounds
Extremities: Edema and Venous Insufficiency (Bilateral lower extremities); Negative Cyanosis or Erythema
Skin: Warm and Dry; Negative Rash or Jaundice
Neurological: Awake and Alert
Psychological: Calm
Objective Data
Lab Data
Lab Results
04/09/25 05:40
04/09/25 05:40
PT 17.9 Sec (11.4-14.6) H 04/02/25 04:35
INR 1.42 04/02/25 04:35
APTT 106.8 Sec (23.4-35.0) H 04/09/25 05:40
Estimated Creat Clear 57 ml/min 04/09/25 05:40
Lactic Acid 1.9 mmol/L (0.7-2.0) 04/01/25 18:21
Total Bilirubin 1.1 mg/dl (0.2-1.3) 04/05/25 05:20
AST 35 U/L (17-59) 04/05/25 05:20
ALT 74 U/L (0-50) H 04/05/25 05:20
Alkaline Phosphatase 106 U/L (38-126) 04/05/25 05:20
Most recent labs reviewed.
Micro Results:
04/01/25 22:19 Blood Culture - Final
Blood/Venous No Growth - Final Report
04/01/25 16:55 Blood Culture - Final
Blood/Venous No Growth - Final Report
04/02/25 02:47 Respiratory Culture - Final
Endotracheal Usual Respiratory Gerri
Gram Stain - Final
04/01/25 16:51 MRSA Screen - Final
Nose No Methicillin Resistant Staphylococcus aureus isolated.
04/02/25 14:45 Respiratory Syncytial Virus Ag - Final
Nasalpharynx Negative for Respiratory Syncytial Virus.
A false negative result may be obtained with a specimen
collected early in the acute phase. If symptoms persist, a
new specimen should be tested.
04/02/25 11:48 Influenza Types A & B (TIMA) - Final
Nasal Swab Negative for Influenza A & B, NAAT
Negative results must be combined with clinical observations
and patient history.
Nucleic Acid Amplification test (NAAT)performed on the
[employer] platform.
04/01/25 16:49 Legionella Urinary Antigen - Final
Urine Negative for Legionella pneumophila Serogroup 1 antigen.
A negative result does not rule out the possiblity of
Legionella infection due to other serogroups or species of
Legionella. Clinical correlation is recommended.
Streptococcus pneumoniae Antigen (M - Final
Negative for Streptococcus pneumoniae antigen.
A negative result does not exclude infection with
Streptococcus pneumoniae. Clinical correlation is
recommended.
Imaging:
04/05/2025 CXR (portable): Bilateral pulmonary parenchymal opacities appear unchanged from the previous radiograph. Stable position of the right PICC and enteric tube. Sternotomy wires, mediastinal clips, and aortic valve prosthesis. No large pleural
effusion or pneumothorax. Stable cardiomediastinal silhouette.
04/04/2025 CXR (portable): Mild cardiomegaly noted. Median sternotomy wires in place. AVR noted. Prominence of the interstitial compartment, with cephalization of the pulmonary vasculature.
04/03/2025 CXR (portable): Patchy parenchymal opacity involving the right lung, greater in the upper lobe. Findings appear stable.
--- NOTE | 2025-04-09 11:02 | CM ---
CM following for DC planning needs.
Met w/ patient at bedside. He is anticipating a CATH on Sunday, if he is able to tolerate laying flat.
We discussed SNF placement. He is discussing this w/ his family. I offered to send referrals to facilities so that he can present to his family viable options. Will send referrals so that he has options to review.
Anticipated DC plan is for SNF placement
Will need insurance auth
Will follow.
[2025-04-09] MEDS: NOVOLOG FLEXPEN 3 UNITS SC ×3 (11:13→22:27)
--- NOTE | 2025-04-09 12:53 | W.PN.NEPH.PH ---
Today's Communication / Plan
-
Continue diuretic
Assessment/Plan
-
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
presents with cardiac arrest. Patient was here in the hospital going for an echo that was ordered as an outpatient. He follows with brand strategy manager, Dr. Raymon Calero, last saw him in the office on 10/14/2024. Due to his history of chronic HFpEF, an
echo was ordered for him which is why he was here today. While walking through the hospital lobby, he collapsed and had no pulse.
Renal consultation for acute kidney injury with creatinine increasing from normal baseline. Significantly hypotension. Was on pressor support briefly. Was intubated and then extubated rather quickly.
Takes furosemide regularly outpatient. He has not noticed any significant weight gain prior to admission.
Impression.
Acute kidney injury likely hemodynamic mediated early ATN.
CHF new ejection fraction 40 to 45% from 60% April 2024
Status post cardiac arrest.
Atrial fibrillation rate controlled.
CAD status post CABG.
Plan.
continue IV lasix
follow BMP
Creatinine 1.4 okay for cardiac cath the patient unable to lie flat because of chest pain from CPR
Possible catheterization till Sunday as discussed with cardiology
-
-
Date of Service: April 09, 2025
CC / HPI / ROS
-
Chief Complaint:
sob
History of Present Illness:
JAMES in setting of cardiorenal/hypotension
diuresing will with IV lasix for decompensated HF
JAMES/Cr improving
Hgb stable low 9.0
BP stable
remains on supplemental O2
Review of Systems:
no CP
mild SOB
Labs
-
Labs:
WBC 17.2 10^3/uL (4.8-10.8) H 04/09/25 05:40
RBC 3.17 10^6/uL (4.70-6.10) L 04/09/25 05:40
Hgb 9.2 g/dL (13.0-18.0) L 04/09/25 05:40
Hct 27.9 % (39.0-52.0) L 04/09/25 05:40
Plt Count 181 10^3/uL (130-400) 04/09/25 05:40
Sodium 141 mmol/L (135-145) 04/09/25 05:40
Potassium 4.3 mmol/L (3.5-5.1) 04/09/25 05:40
Chloride 107 mmol/L (98-107) 04/09/25 05:40
Carbon Dioxide 28 mmol/L (22-30) 04/09/25 05:40
BUN 57 mg/dl (9-20) H 04/09/25 05:40
Creatinine 1.4 mg/dL (0.7-1.3) H 04/09/25 05:40
eGFR 51.45 04/09/25 05:40
Glucose 102 mg/dl (70-99) H 04/09/25 05:40
Calcium 8.6 mg/dl (8.4-10.2) 04/09/25 05:40
Phosphorus 4.4 mg/dl (2.5-4.5) 04/09/25 05:40
Grk-T-Oyinmbyfdxe Pept 54389 pg/ml 04/04/25 04:46
Albumin 3.9 g/dl (3.5-5.0) 04/05/25 05:20
Physical Exam
-
Vital Signs:
Vital Signs
Temp Pulse Resp BP Pulse Ox
97.7 F 78 20 131/69 94
04/09/25 12:20 04/09/25 12:22 04/09/25 12:20 04/09/25 12:22 04/09/25 12:20
Cardiovascular:: Regular rate and rhythm
Respiratory:: Bilateral: Coarse
Lung Excursion:: Normal
Abdomen:: Nontender and Soft
Bowel Sounds:: Normal
Extremity Edema:: +1: Bilateral:
--- NOTE | 2025-04-09 13:54 | W.PN.HOSP.TC ---
Today's Communication/Plan
-
continue IV heparin
continue IV Lasix; follow labs
continue GDMT as able
Eventual L/R Heart cath and ICD; likely 04/13
Assessment / Plan
Assessment / Plan
Assessment:
VT/VF cardiac arrest
Cardiogenic Shock
Coronary Artery Disease
Hx CABG
Acute on chronic HFpEF
Acute Respiratory Failure
-patient s/p 2 shocks for VT/VF, IV Epi x 3, currently oral amiodarone
-s/p intubation later extubated 04/02 to BIPAP weaned off to midflow. now 7L NC
-speech eval appreciated: regular diet
-weaned off pressors
-Software Product Manager Consult appreciated - continue steroids and wean as able
-Cardiology consult appreciated eventual Left and Right heart cath and ICD prior to discharge.
-cont hep gtt with eventual transition to Eliquis
- GMDT: Coreg
-CT Head appreciated no acute abn's
-EEG appreciated no sz activity, Moderately abnormal EEG for age due to moderately diffuse bihemispheric slowing
-Neurology consult appreciated
-ECHO appreciated EF 40-45% decreased from previous ECHO EF 65%
Prediabetes A1c 5.8
Steroid induced hyperglycemia
- Sliding scale
- continue meal time insulin
- monitor and titrate insulin regimen as necessary.
White Count Elevation
Steroid induced Leukocytosis
Concern for aspiration PNA
Right hand/arm Swelling at IV site reported Unasyn infiltration overnight
- trend WBC
- Follow cultures
- Unasyn course completed and ID signed off
JAMES likely cardiorenal
Metabolic Acidosis
Mild Hyperkalemia
- brief bicarb gtt as per ICU completed
- monitor renal function
- Cr trended up to peak 2.9 improving with aggressive diuresis as per Nephro; currently 1.4
- Nephro eval appreciated
parox Atrial Fibrillation
-IV amiodarone gtt switched to PO Amiodarone, cont as per cardio
-cont hep gtt with eventual transition to Eliquis
Hx Aortic Valve replacement
Essential HTN
- continue Coreg
- Lasix as per Nephro
- monitor and titrate antihypertensive regimen as necessary
Stage 1 right middle flank pressure injury, POA
- local wound care
Hyperlipidemia
Mild Transaminitis likely 2/2 liver injury d/t cardiac arrest as above
- Transaminitis significant improved/resolving
- home statin resumed
Hypothyroidism
- cont home Synthroid
DVT ppx: Heparin drip
Code: Full
Anticipated Discharge: > 48 hours
Subjective/Interval History
-
Date of Service: April 09, 2025
reports chest pain from CPR and still SOB with laying flat
Objective Data
-
Labs:
Laboratory Results
04/09/25
05:40
WBC 17.2 H
Hgb 9.2 L
Hct 27.9 L
Plt Count 181
APTT 106.8 H
Sodium 141
Potassium 4.3
Chloride 107
Carbon Dioxide 28
BUN 57 H
Creatinine 1.4 H
Glucose 102 H
Calcium 8.6
Vital Signs:
Vital Signs
Temp Pulse Resp BP Pulse Ox
97.7 F 78 20 131/69 94
04/09/25 12:20 04/09/25 12:22 04/09/25 12:20 04/09/25 12:22 04/09/25 12:20
I&O
04/08/25 04/09/25 04/10/25
06:59 06:59 06:59
Intake Total 1069 / 1069 480 / 480 240 / 240
Output Total 3925 / 3925 2325 / 2325 2100 / 2100
Balance -2856 / -2856 -1845 / -1845 -1860 / -1860
Physical Exam
-
General: No Apparent Distress
HEENT: Normocephalic and Atraumatic
Respiratory: Negative Wheezes
Cardiac: Regular Rhythm and S1/S2
GI: Soft and Nontender
Genito-urinary: No Costovertebral Tender
Musculoskeletal: Edema, Right Lower Extrem and Edema, Left Lower Extrem
Neuro: AO x 3
Psych: Calm
Data Reviewed
-
Total Time Spent with Patient (in minutes): 45
Labs: Labs Reviewed by me
[2025-04-09 14:08] LABS: Glucose - Point of Care 156 mg/dl (70-99)
[2025-04-09] MEDS: NOVOLOG FLEXPEN SC (14:08)
[2025-04-09] MEDS: NOVOLOG FLEXPEN-MODERATE RESISTANCE 1 UNITS SC ×3 (14:08→22:28)
[2025-04-09] MEDS: MIRALAX 17 GRAMS PO (16:45)
[2025-04-09 17:04] LABS: Glucose - Point of Care 157 mg/dl (70-99)
[2025-04-09] MEDS: FLOMAX 0.4 MG PO (18:12)
--- NOTE | 2025-04-09 18:30 | PTCARENOTE ---
Pt OOB to chair by mid morning, seen by Speech therapy and had FEES study, plan to continue regular food and thin liquids. Pt walked in room to the door and back with less SHEPPARD. Telemetry shows atrial fib with RBBB. Pt diuresing well, down 37lbs
since admission, plan to continue to diurese and to wean oxygen as able.
[2025-04-09] MEDS: REMOVE LIDOCAINE PATCH 1 PATCH REMOVE (20:43)
[2025-04-09 21:53] LABS: Glucose - Point of Care 150 mg/dl (70-99)
[2025-04-09] MEDS: AYR SALINE NASAL GEL 1 APPLIC NASAL (22:25)
[2025-04-10] VITALS (12 sets, daily range): BP systolic 71–126; BP diastolic 52–82; PULSE 2–101
[2025-04-10] MEDS: DUONEB 3 ML INH ×2 (01:34→08:19)
--- NOTE | 2025-04-10 01:34 | PTCARENOTE ---
Addendum entered by Albertina Mcfarlane RN 04/10/25 06:34:
O2 increased to 5 L for pt c/o SOB
Addendum entered by Albertina Mcfarlane RN 04/10/25 06:13:
Pt asked to be transferred back to chair, stated 'that his breathing worse when his is in bed'. Pt unable to get out of bed d/t difficulty breathing and new pain 6/10 on his right back side. Lung sounds now diminished on right side. STRUCTURAL METAL WORKER ordered STAT
CXray, VBG and am dose of Lasix given earlier. STRUCTURAL METAL WORKER ok to hold on to d/c a [place] cath for now.
Original Note:
Pt AFib on monitor, VSS. After pt was transferred from chair to bed Pt c/o SOB, on 4L 96%. RT administered PRN TX
[2025-04-10] MEDS: HEPARIN 25000 UNITS/250 ML IV (03:42)
[2025-04-10 04:29] LABS: Hematocrit 25.3 % (39.0-52.0); Hemoglobin 8.2 g/dL (13.0-18.0); Mean Corp Hgb Conc. 32.4 g/dL (33.0-37.0); Mean Corpuscular Volume 86.9 fL (80.0-94.0); Platelet Count 192 10^3/uL (130-400); Red Cell Dist. Width 16.8 % (11.5-14.5)
[2025-04-10 05:06] LABS: APTT 148.1 Sec (23.4-35.0)
[2025-04-10 05:26] LABS: Blood Urea Nitrogen 52 mg/dl (9-20); Calcium 8.6 mg/dl (8.4-10.2); Carbon Dioxide 27 mmol/L (22-30); Chloride 107 mmol/L (98-107); Estimated Creatinine Clearance 57 ml/min; Glucose 115 mg/dl (70-99); Potassium 4.2 mmol/L (3.5-5.1); Sodium 139 mmol/L (135-145); eGFR 51.45
[2025-04-10] MEDS: LASIX 80 MG IV (05:30)
[2025-04-10 05:35] LABS: Glucose - Point of Care 179 mg/dl (70-99)
--- NOTE | 2025-04-10 05:37 | W.PN.UPDATE ---
Update Note
Progress Note Update
RN reported patient with respiratory distress. Patient was resting in bed and wanted to sit in the chair as he couldn't breath. Lungs right with rales, left side diminished, reports feeling shor of breath, reports right flank 'achy'pain 03/17. Hull
in place voiding, + edema LE. VS 126/72, 105 30 4l 90%. Advise RN to give IV Lasix early, pain meds, Chest x-ray, VBG now.
patient states feeling better after the Lasix. oxygen 96% 4L, RR 22
[2025-04-10] MEDS: ROXICODONE 5 MG PO (05:45)
[2025-04-10] MEDS: SYNTHROID 150 MCG PO (05:45)
[2025-04-10 05:46] LABS: Venous Blood Gas B.E. 2.4 mmol/L (-4 to +4); Venous Blood Gas O2 Sat % 99.1 %
[2025-04-10 07:26] LABS: Glucose - Point of Care 143 mg/dl (70-99)
[2025-04-10] MEDS: NOVOLOG FLEXPEN-MODERATE RESISTANCE SC (07:44)
[2025-04-10] MEDS: COREG PO ×2 (08:29→09:00)
[2025-04-10] MEDS: LOW STRENGTH ASPIRIN 81 MG PO (08:30)
[2025-04-10] MEDS: PACERONE 200 MG PO (08:30)
[2025-04-10] MEDS: FEOSOL PO ×2 (08:30→09:00)
[2025-04-10] MEDS: LIPITOR PO ×2 (08:30→09:00)
[2025-04-10] MEDS: MIRALAX 17 GRAMS PO (08:30)
[2025-04-10] MEDS: LIDOCAINE 4% PATCH 1 PATCH TOPICAL (08:31)
[2025-04-10] MEDS: DELTASONE PO ×2 (08:31→09:00)
[2025-04-10] MEDS: FLUSH (NSS) 1 FLUSH IV (08:40)
[2025-04-10 08:50] LABS: Glucose - Point of Care 177 mg/dl (70-99)
[2025-04-10] MEDS: NOVOLOG FLEXPEN SC (09:02)
--- NOTE | 2025-04-10 09:04 | W.PN.HOSP.TC ---
Addendum entered and electronically signed by Winnie Gomez MD 04/10/25 09:31:
ICU transfer and start Levophed for BP in 70s. Notified consultants, family aware
BiPAP prn
Original Note:
Today's Communication/Plan
-
possible further IV Lasix; await renal input
d/w cards and IR for urgent thoracentesis this AM
Assessment / Plan
Assessment / Plan
Assessment:
VT/VF cardiac arrest
Cardiogenic Shock
Coronary Artery Disease
Hx CABG
Acute on chronic HFpEF
-patient s/p 2 shocks for VT/VF, IV Epi x 3, currently oral amiodarone
-s/p intubation later extubated 04/02 to BIPAP weaned off to midflow. now 5L NC
-speech eval appreciated: regular diet
-weaned off pressors but resumed 04/10/25
-Assembler Seat Consult appreciated - completed steroid taper course
-Cardiology consult appreciated eventual Left and Right heart cath and ICD prior to discharge.
-cont hep gtt with eventual transition to Eliquis
-GMDT: Coreg
-CT Head appreciated no acute abn's
-EEG appreciated no sz activity, Moderately abnormal EEG for age due to moderately diffuse bihemispheric slowing
-Neurology consult appreciated
-ECHO appreciated EF 40-45% decreased from previous ECHO EF 65%
Acute hypoxic Respiratory Failure
- worsening respiratory distress 04/10
- repeat CXR 04/10 with moderate effusion
- for thoracentesis urgently; reviewed with IR/Cards/Renal
Prediabetes A1c 5.8
Steroid induced hyperglycemia
- Sliding scale
- continue meal time insulin
- monitor and titrate insulin regimen as necessary.
White Count Elevation
Steroid induced Leukocytosis
Concern for aspiration PNA
Right hand/arm Swelling at IV site reported Unasyn infiltration overnight
- trend WBC
- Follow cultures
- Unasyn course completed and ID signed off
JAMES likely cardiorenal
Metabolic Acidosis
Mild Hyperkalemia
- brief bicarb gtt as per ICU completed
- monitor renal function
- Cr trended up to peak 2.9 improving with aggressive diuresis as per Nephro; currently 1.4
- Nephro eval appreciated
parox Atrial Fibrillation
- s/p IV amiodarone gtt. Now continue PO Amiodarone, cont as per cardio
-cont hep gtt with eventual transition to Eliquis
Hx Aortic Valve replacement
Essential HTN
- continue Coreg
- Lasix as per Nephro
- monitor and titrate antihypertensive regimen as necessary
Stage 1 right middle flank pressure injury, POA
- local wound care
Hyperlipidemia
Mild Transaminitis likely 2/2 liver injury d/t cardiac arrest as above
- Transaminitis significant improved/resolving
- home statin resumed
Hypothyroidism
- cont home Synthroid
DVT ppx: Heparin drip
Code: Full
Anticipated Discharge: > 48 hours
Subjective/Interval History
-
Date of Service: April 10, 2025
more SOB overnight and labored breathing; IV Lasix given early
rapid response called this morning for labored breathing, patient appearing more pale/carrillo
Objective Data
-
Labs:
Laboratory Results
04/10/25 04/10/25
04:01 12:30
WBC 18.9 H
Hgb 8.2 L
Hct 25.3 L
Plt Count 192
APTT 148.1 H Pending
Sodium 139
Potassium 4.2
Chloride 107
Carbon Dioxide 27
BUN 52 H
Creatinine 1.4 H
Glucose 115 H
Calcium 8.6
Vital Signs:
Vital Signs
Temp Pulse Resp BP Pulse Ox
97.7 F 105 24 102/64 100
04/10/25 07:26 04/10/25 08:23 04/10/25 08:23 04/10/25 07:23 04/10/25 08:23
I&O
04/09/25 04/10/25 04/11/25
06:59 06:59 06:59
Intake Total 480 / 480 1240 / 1240
Output Total 2325 / 2325 2900 / 2900
Balance -1845 / -1845 -1660 / -1660
Physical Exam
-
General: Respiratory Distress
HEENT: Normocephalic and Atraumatic
Respiratory: Accessory Resp Muscle Use (mild) and Decreased Breath Sounds (R side)
Cardiac: Irregular Rhythm
GI: Soft and Nontender
Musculoskeletal: Edema, Right Lower Extrem and Edema, Left Lower Extrem
Neuro: AO x 3
Psych: Calm
Data Reviewed
-
Total Time Spent with Patient (in minutes): 51
Labs: Labs Reviewed by me
--- NOTE | 2025-04-10 09:19 | W.PN.CARDCBS ---
Today's Communication / Plan
-
Progressive respiratory distress starting last evening. Requiring increased O2 requirements. There is an increased work of breathing. Chest x-ray finds new moderate to large right-sided pleural effusion.
Discussed with primary service and agree with attempt at thoracentesis while we continue aggressive support of his O2 requirement
Impression / Plan
-
Hx: Patient had an [id number] cardiac arrest while in the main lobby registering for outpatient testing and cardiology responded for the overhead call of a code and is now consulted. Patient saw Dr. Gavin in the office on 10/14/2024 and felt that
he was doing well from a cardiac standpoint although there was some concern for bioprosthetic AVR dysfunction, plan was to check an outpatient echo. Patient presented to [facility] main lobby today to register for his outpatient echo and while walking
through the vestibule to reach the lobby he collapsed, a bystander reports patient was walking and then was suddenly on the ground. Situation was recognized situation was recognized, CPR started, AED applied, shock advised and given, CPR resumed
AED advised another shock which was given, and that time additional personnel arrived and patient was placed on heart monitor that showed VF, patient shocked using external defibrillator, a total of 3 rounds of epi was given, patient then with
asystole and was given additional CPR then VF and then another shock and since then has been in A-fib with his chronic RBBB. During this patient was also intubated and was found to have blood in his mouth prior to intubation. Patient was
stabilized transferred to a stretcher and moved to the ER.
PCP: Dr. Mona Jerry
Card: Dr. VANESSA Calero
He continues to complain of chest discomfort when he lays flat.
He also relates that starting last evening and going into this morning 04/09/25 he has become progressively more short of breath.
Impression:
Out of hospital cardiac arrest with CPR, AED shocks, external shocks and ROSC 04/01/25
collapsed in the main lobby of the hospital while there to register for an echoVFNew CM EF 40-45%
Elevated troponin with peak 1.2
Acute renal failure, improving.
Acute on chronic HFpEF
CXR shows pulmonary edema 04/01/25Permanent Afib on chronic Eliquis OACcRBBB
s/p tissue AVR for severe 04/06/2011
CAD s/p CABG with SVG to PDA 04/06/2011
HTN
Dyslipidemia
Morbid obesity
Hypothyroidism
Echo 04/30/2024: EF 65 to 70%, moderate concentric LVH, mild MS peak/mean 13/5 mmHg, mild MR, well-seated tissue AVR with peak/mean 45/29 mmHg, mild TR with PAP 41 mmHg
Echo April 01 2025: EF 40-45% mod LVH marked paradoxical septal motion. #27 mm bovine AVR with peak/mean grad 34/22 mmHG mod bioprosthetic stenosis with mild TR and PASp 38 mmHg.
Plan:
He relates that starting last evening and going into this morning 04/09/25 he has become progressively more short of breath.
IV Lasix given earlier but not much urine output response and requiring increased O2 supplementation
Chest x-ray obtained urgently findings moderate-sized right pleural effusion which is a new finding compared to chest x-ray 04/05/2025
Discussed with primary service
Recommend consideration for IR guided thoracentesis
Continued attempts at diuresis
Background etiology of cardiac arrest is not completely clear. Initial rhythm was ventricular fibrillation. Troponin peaked at only 1.2. He does have new left ventricular systolic dysfunction which is mild. The possibility of coronary artery
disease remains a concern. We discussed possible cardiac catheterization today, however patient reports with lying flat he gets short of breath as well as significant chest discomfort related to his prior CPR. He refuses cath today and plan will
be to reassess, likely for coronary angiography on Friday 04/13 when he is more medically optimized.
Creatinine continues to improve, 1.4 on 04/09.
has been on IV Lasix 80 mg daily. Appreciate nephrology input
Continue IV heparin, aspirin
Ventricular fibrillation and cardiac arrest
Pending further evaluation, we are planning for coronary angiography on April 13.
Maintain amiodarone
He will need secondary prevention ICD prior to discharge. He has permanent atrial fibrillation by history and remains in atrial fibrillation, he has right bundle branch block, likely will plan for single-chamber ICD
Heart failure with mildly reduced ejection fraction
The mildly reduced ejection fraction is in the setting of his acute event/cardiac arrest
Eventually repeat echocardiogram
Outpatient Nebivolol transition to Coreg this admission. Holding nikia/arb/aldactone/sglt2 for now given JAMES.
He will need secondary prevention ICD prior to discharge. He has permanent atrial fibrillation by history and remains in atrial fibrillation, he has right bundle branch block, likely will plan for single-chamber ICD
Atrial fibrillation which is been described as permanent.
Plan is for rate control and oral anticoagulation. Eventually resume Eliquis.
Tissue AVR, most recent echocardiogram find stable peak and mean gradients.
PT/OT
Total time 51 min
Progress Note - Patient Relations Liaison
Subjective
Date of Service: April 10, 2025
He continues to complain of chest discomfort when he lays flat.
He also relates that starting last evening and going into this morning 04/09/25 he has become progressively more short of breath.
Objective
Labs:
04/10/25 04:01
04/10/25 04:01
Labs
Hgb 8.2 g/dL (13.0-18.0) L 04/10/25 04:01
Hct 25.3 % (39.0-52.0) L 04/10/25 04:01
Plt Count 192 10^3/uL (130-400) 04/10/25 04:01
PT 17.9 Sec (11.4-14.6) H 04/02/25 04:35
INR 1.42 04/02/25 04:35
APTT 148.1 Sec (23.4-35.0) H 04/10/25 04:01
Sodium 139 mmol/L (135-145) 04/10/25 04:01
Potassium 4.2 mmol/L (3.5-5.1) 04/10/25 04:01
BUN 52 mg/dl (9-20) H 04/10/25 04:01
Creatinine 1.4 mg/dL (0.7-1.3) H 04/10/25 04:01
Glucose 115 mg/dl (70-99) H 04/10/25 04:01
Vital Signs and I&O:
Vital Signs
Temp Pulse Resp BP Pulse Ox
97.7 F 105 24 102/64 100
04/10/25 07:26 04/10/25 08:23 04/10/25 08:23 04/10/25 07:23 04/10/25 08:23
Vital Signs
Temp Pulse Resp BP Pulse Ox
97.7 F 105 24 102/64 100
04/10/25 07:26 04/10/25 08:23 04/10/25 08:23 04/10/25 07:23 04/10/25 08:23
Intake & Output
04/08/25 04/09/25 04/10/25 04/11/25
06:59 06:59 06:59 06:59
Intake Total 1069 / 1069 480 / 480 1240 / 1240
Output Total 3925 / 3925 2325 / 2325 2900 / 2900
Balance -2856 / -2856 -1845 / -1845 -1660 / -1660
Physical Exam
Physical Exam
Respiratory distress this morning
Rapid irregular rate and rhythm with normal S1 and S2, no S3 no S4. There is a grade 1/6 apical holosystolic murmur and no rubs. PMI is normally placed.
Lungs demonstrate reduced breath sounds on the right about mcfp up, left side is clear, bilaterally there are no wheezes or rales, no rhonchi
Abdomen soft nontender nondistended with normoactive bowel sounds
Extremities show +1 pretibial edema bilaterally no clubbing or cyanosis.
Neurologic exam is grossly nonfocal.
--- NOTE | 2025-04-10 09:28 | W.PN.INTV ---
Today's Communication / Plan
Recommendations
Patient transferred to ICU
Thoracentesis was planned
Diuresis as tolerated
Did not tolerate BiPAP
Impending intubation
Soon after transfer patient deteriorated prior to this dictation completion and PEA arrest occurred-see update note-resuscitative efforts aborted per POA request
Assessment
-
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
dermatitis who presents with cardiac arrest. Patient was here in the hospital going for an echo that was ordered as an outpatient. He follows with sap data analyst, Dr. Raymon Calero, last saw him in the office on 10/14/2024. Due to his history of
chronic HFpEF, an echo was ordered for him which is why he was here today. While walking through the hospital lobby, he collapsed and had no pulse. There was approximately 5 minutes or so before CPR was started. He was noted to have blood coming
out of his mouth and when he was finally intubated, there was frequent suctioning of straight blood coming from the endotracheal tube. The monitor was placed and he was found to be in V-fib and he was shocked. Epinephrine x 3 was given. Patient
was shocked for a total of 2 times. Also given amiodarone and then was transferred to the ER for further stabilization. Due to hypotension, Levophed was started. CT head showed no evidence of an acute intracranial abnormality and CTA chest showed
no evidence of any PE or an acute aortic dissection, and there was evidence of pulmonary edema and pneumonia. Initial temperature 97.2 �F. Initial pulse rate 139, respiratory rate 20, BP 79/49 and he was saturating 92% via ventilator. Initial
labs pertinent for mild leukocytosis to 14.9, Hb 10.7, INR 1.39, initial lactate 2.4, initial troponin 0.067, and proBNP 1550. Patient was then transferred to the ICU and Valve Grinder services consulted for additional management/recommendations.
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
Impression:
#Cardiac arrest with shockable rhythm with shock x2 and epi x3 s/p ROSC (reported downtime about 15 minutes)-04/01/25
#Ventilator dependent respiratory failure (intubated 04/01/2025, extubated 04/02/2025)
#Acute decompensated heart failure/acute HFmrEF
#Circulatory shock likely due to sepsis - shock state resolved as of 04/02/25
#Pneumonia/aspiration pneumonia
#Elevated troponin likely due to NSTEMI versus demand ischemia
#Chronic anemia
#Morbid obesity
#Chronic venous stasis dermatitis
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
#Pulmonary hypertension
#Chronic A-fib with RBBB
#Hypothyroidism
#Hyperlipidemia
#Hypertension
Plan:
Patient transferred from IVU on 04/10/25 with increasing shortness of breath, persistent CHF and enlarging right pleural effusion
Urgent thoracentesis planned-impending respiratory failure and might need reintubation
High flow oxygen if needed
Did not tolerate BiPAP when attempted by respiratory therapy-reviewed with respiratory therapy
- s/p recent TTM - stopped early as he woke up, following commands, and was extubated on 04/02
- He continues to be awake and alert
- Scheduled tylenol DC'd
- CT head showed no acute intracranial pathology
- Consulted neurology - recs appreciated
- s/p EEG on 04/01/2025 - given that he was following commands, EEG was stopped
- Continue antibiotics with Unasyn for aspiration; follow-up blood cultures and respiratory culture (both show NGTD); MRSA swab negative
- COVID swab, flu swab + RSV all negative
- Amiodarone drip changed to PO amio; cardiology on board
- Patient was extubated on 04/02/2025
- Continue midflow nasal cannula with BiPAP as needed
- Keep SpO2 >90-94%
- Continue aspiration precautions; keep HOB >30-45�
- prn nebulized bronchodilators � not currently bronchospastic
- He was wheezing after extubation, and could have been a cardiac wheeze --> started solumedrol with budesonide and Duonebs, and as of 04/03 his wheezing has resolved
- Start weaning Solu-Medrol today to 40mg IV q12hr
- Although he has an JAMES, continue with IV lasix given I still have concern for fluid overload based on his recent BNP and CXR
- Re-check CXR again tomorrow
- Diurese as Cr tolerates; re-assess daily
- Nephrology on board, and recs appreciated
- Echo checked on 04/01 showing moderate concentric LVH, with an LVEF of 40-45% with normal RV size, with suspected mildly reduced RV systolic function, with moderate bioprosthetic aortic valve stenosis with peak/mean gradients of 34/22 mmHg, and
PASP 38 mmHg
- Troponin peaked at 1.21 04/02/2025 � no longer need to continue trending at this time
- No active bleeding seen --> given his initial VT/VF arrest with suspected coronary ischemia, continue heparin gtt --> if he develops hemoptysis on heparin gtt, then will need to take a look via bronch
- Hold off on starting statin given elevated LFTs - continue to trend LFTs
- Maintain net negative fluid balance as tolerated
- Cardiology following-reviewed with Dr. Blum
- Maintain MAP>65
- Remains off vasopressors as of 04/02
- Random cortisol is 36.4 - -> no need for stress dose steroids at this time
- Replete electrolytes with K>4, Mg>2
- Maintain euglycemia with goal BG 140-180; check A1C
- Trend H/H and transfuse if needed to keep Hb>7-8g/dL; keep plt>50k
- Early nutrition - continue tube feeds given he was unable to work with MILLINERY SALESPERSON given his SOB; MILLINERY SALESPERSON to re-eval him
- Stress ulcer prophylaxis - no longer needed
- DVT ppx: continue heparin gtt; of note, he possibly bit his tongue after he collapsed
Lines:
PICC line
Dobhoff tube
Critical care statement: A total of50 minutes of critical care time was provided for this patient today. This includes management of unstable vital signs, evaluation of the patient at bedside, reviewing the patient's pertinent medical records
including radiographs,, Management of respiratory failure, pressor management, microbiology, laboratory evaluations, and discussion with primary team, consultants, pharmacy, nutrition, physical therapy, case management, charge nurse, critical care
nursing, and respiratory therapy.
Data:
CTA chest/abdomen/pelvis with contrast 04/01/2025:
Significantly limited examination secondary to motion artifact, the large body habitus, and the patient's arms down position.
No CTA evidence for an acute central pulmonary thromboembolus. Evaluation of the bilateral segmental and subsegmental pulmonary arteries is nondiagnostic.
Bilateral airspace opacities most suspicious for multifocal pneumonia, less likely alveolar pulmonary edema given the distribution.
Cardiomegaly.
Secondary findings suggesting a degree of right heart failure.
Superiorly displaced fracture at the superior endplate of L1, which appears acute and is new compared to the previous CT abdomen/pelvis. New distraction of L1-L2 intervertebral disc space.
CXR 04/02/2025:
Diminished lung volumes. Increased pulmonary parenchymal opacities, left greater than right, as described. Possible considerations include pulmonary edema, aspiration, pneumonia, and/or atelectasis.
Probable small left pleural effusion has developed.
Stable endotracheal tube. Nasogastric tube place, extending into the stomach.
CXR 04/03/2025:
Bilateral airspace opacities throughout both lungs, which appears slightly improved from most recent radiograph.
Interval removal of endotracheal tube.
Total time spent today was 38 minutes for this encounter. Time includes reviewing laboratory test/imaging results, reviewing pertinent medical records, obtaining and reviewing medical history, performing an appropriate exam, ordering medications,
tests and procedures. Time also includes documentation of this encounter, coordinating patient care and communicating with other healthcare professionals. Total time does not include separately billed tests performed on this date of service.
Subjective Dataa
Subjective Data
Date of Service:
Date of Service: April 10, 2025
Chief Complaint: Valve Grinder Follow Up and Pulmonary Follow Up
Subjective:
patient deteriorating over the last 12 hours with increasing shortness of breath, patient has mild chest pressure, no chest congestion, abdominal pain and has some lower extremity swelling
Review of Systems
General: Other
Objective Data
Data Reviewed
Vital Signs / I&O / Oxygen:
Vital Signs
Temp Pulse Resp BP Pulse Ox
97.7 F 105 24 102/64 100
04/10/25 07:26 04/10/25 08:23 04/10/25 08:23 04/10/25 07:23 04/10/25 08:23
Intake and Output
04/09/25 04/10/25 04/11/25
06:59 06:59 06:59
Intake Total 480 / 480 1240 / 1240
Output Total 2325 / 2325 2900 / 2900
Balance -1845 / -1845 -1660 / -1660
SaO2 [CPAP/PSV] 93
SaO2 [A/C] 94
SaO2 100
Nasal Cannula flow liters per 4
minute
Physical Exam
General: Respiratory Distress (negative), Comfortable, Chills (negative) and Sweats (negative)
HEENT: Normocephalic, Anicteric and Other (Thick neck)
Cardiovascular: Irregular Rhythm (Irregularly irregular), Murmur and Peripheral Edema (+2 lower extremity pitting edema bilaterally)
Respiratory: Wheeze (negative), Crackles (Bilateral), Rhonchi (negative), Non-Labored Respirations, Stridor (negative) and Other ( diminished breath sounds)
GI: Soft, Distended (Abdominal obesity), Non Tender, Normal Bowel Sounds and Other (Sedated)
Neurology: Awake, Alert, Oriented and Tremors (negative)
Skin: Warm, Dry, Cyanosis (negative) and Jaundice (negative)
Labs/Micro/Reports
Lab Data
04/10/25 04:01
04/10/25 04:01
Laboratory Results
04/10/25
04:01
APTT 148.1 H
[2025-04-10] MEDS: LEVOPHED 250 IV (09:49)
--- NOTE | 2025-04-10 10:25 | W.PN.UPDATE ---
Update Note
Progress Note Update
Called to see patient who became agonal and pulseless-PEA arrest
Code called
Immediate chest compressions were initiated, no pulse, epinephrine x 2 provided, no shockable rhythm
Anesthesia was present to intubate, however, the patient's niece-POA presented and stated that patient and family would not want CPR, shocking, intubation-their wishes were respected
The patient was bradycardic with very weak pulse and agonal when code was completed-unfortunately is imminent
Family notified, primary team notified
--- NOTE | 2025-04-10 10:26 | PTCARENOTE ---
Received patient this morning PEPITO, on 5L NC, extremely diaphoretic and struggling to breathe. Hull with 150ml of urine since given lasix by foreign trade teacher. Dr. Gomez notified and shortly after RFID STRATEGIST called. Patient asking me to call his niece, stating
he wasn't going to 'be here' by noon. His niece Elizabeth was called and updated, spoke briefly to the patient on the phone. Patient placed on bipap but only able to tolerate x 10mins, SBP 70-80's and levophed gtt started at 2mcg/min and patient
transferred to ICU, [id number]. His niece Elizabeth arrived while transporting the patient to the ICU. While giving report to ICU nurse at the desk, patient coded, CPR started and code team at the bedside.
--- NOTE | 2025-04-10 10:29 | W.PN.DEATH ---
Pronouncement of
-
Called to see patient to pronounce.
No spontaneous heart tones or respirations noted.
Patient not responsive to verbal stimuli.
Patient is pronounced .
Time of : 10:22
Date of : 04/10/25
Cause of : pulseless electrical activity (cardiac arrest) from acute hypoxic respiratory failure from acute congestive heart failure
--- NOTE | 2025-04-10 11:46 | PTCARENOTE ---
Rec'd pt at approx 1015 from IVU. Pt AAOx3 on arrival to ICU. +SHEPPARD/orthopneic. Pt incont of stool and requesting bedpan, pt placed on bedpan. Multiple RNs settling pt in room, applying monitor and doing CHG bath-receiving RN then out at desk getting
report from IVU RN. Staff in room called out for code 9, per staff pt awake and then went unresponsive suddenly-PEA on monitor. See code 9 sheet. Pt pronounced at 1022 by sal Gomez in room to visit with pt. Pt belongings taken home by sal.
LANA notified. Postmortem care completed.
--- NOTE | 2025-04-10 12:09 | PTCARENOTE ---
Pt OOB to chair with min assist of 2 and rolling walker. Assessment unchanged. at bedside.
[2025-04-10 13:30] LABS: LDH 615 U/L (120-246); Total Protein 6.0 g/dl (6.3-8.2)
--- NOTE | 2025-04-13 09:08 | CM ---
Patient 04/10/25 @ 10:22.
== END 2025-04-10 12:46 | disposition expired | DRG 291 ==
LOC: ICU 14:52
PROVIDERS: Internal Medicine; Internal Medicine Critical Care Medicine; Nurse Practitioner Gerontology; Nurse Practitioner Primary Care; ADMITTING PHYSICIAN Student in an Organized Health Care Education/Training Program; ATTENDING PHYSICIAN Internal Medicine; CONSULT PHYSICIAN Internal Medicine Cardiovascular Disease; CONSULT PHYSICIAN Internal Medicine Critical Care Medicine; CONSULT PHYSICIAN Internal Medicine Nephrology; CONSULT PHYSICIAN Psychiatry & Neurology Neurology; EMERGENCY PHYSICIAN Emergency Medicine; OTHER PHYSICIAN Hospitalist
PROC: 5A12012 Performance of Cardiac Output, Single, Manual (ICD-10-PCS; 2025-04-01)
PROC: 0BH17EZ Insertion of Endotracheal Airway into Trachea, Via Natural or Artificial Opening (ICD-10-PCS; 2025-04-01)
PROC: 06HY33Z Insertion of Infusion Device into Lower Vein, Percutaneous Approach (ICD-10-PCS; 2025-04-01)
PROC: 5A1935Z Respiratory Ventilation, Less than 24 Consecutive Hours (ICD-10-PCS; 2025-04-01)
PROC: 5A2204Z Restoration of Cardiac Rhythm, Single (ICD-10-PCS; 2025-04-01)
PROC: 03HY32Z Insertion of Monitoring Device into Upper Artery, Percutaneous Approach (ICD-10-PCS; 2025-04-01)
PROC: 5A09357 Assistance with Respiratory Ventilation, Less than 24 Consecutive Hours, Continuous Positive Airway Pressure (ICD-10-PCS; 2025-04-02)
PROC: 02HV33Z Insertion of Infusion Device into Superior Vena Cava, Percutaneous Approach (ICD-10-PCS; 2025-04-03)
DX: I11.0 Hypertensive heart disease with heart failure (principal); I50.33 Acute on chronic diastolic (congestive) heart failure; J69.0 Pneumonitis due to inhalation of food and vomit; N17.0 Acute kidney failure with tubular necrosis; J96.01 Acute respiratory failure with hypoxia; S32.018A Other fracture of first lumbar vertebra, initial encounter for closed fracture; G93.1 Anoxic brain damage, not elsewhere classified; T82.857A Stenosis of other cardiac prosthetic devices, implants and grafts, initial encounter; Z68.42 Body mass index [BMI] 45.0-49.9, adult; E87.20 Acidosis, unspecified; I47.20 Ventricular tachycardia, unspecified; I48.21 Permanent atrial fibrillation; I45.2 Bifascicular block; I49.01 Ventricular fibrillation; E78.00 Pure hypercholesterolemia, unspecified; I25.10 Atherosclerotic heart disease of native coronary artery without angina pectoris; E03.9 Hypothyroidism, unspecified; D64.9 Anemia, unspecified; W19.XXXA Unspecified fall, initial encounter; R57.0 Cardiogenic shock; E66.01 Morbid (severe) obesity due to excess calories; Y83.1 Surgical operation with implant of artificial internal device as the cause of abnormal reaction of the patient, or of later complication, without mention of misadventure at the time of the procedure; T80.89XA Other complications following infusion, transfusion and therapeutic injection, initial encounter; Y84.8 Other medical procedures as the cause of abnormal reaction of the patient, or of later complication, without mention of misadventure at the time of the procedure; N40.0 Benign prostatic hyperplasia without lower urinary tract symptoms; R73.03 Prediabetes; R79.89 Other specified abnormal findings of blood chemistry; R73.9 Hyperglycemia, unspecified; I27.20 Pulmonary hypertension, unspecified; T38.0X5A Adverse effect of glucocorticoids and synthetic analogues, initial encounter; E87.5 Hyperkalemia; I87.2 Venous insufficiency (chronic) (peripheral); L89.891 Pressure ulcer of other site, stage 1; R74.01 Elevation of levels of liver transaminase levels; Z11.52 Encounter for screening for COVID-19; Z79.01 Long term (current) use of anticoagulants; Z95.1 Presence of aortocoronary bypass graft; Z87.891 Personal history of nicotine dependence; Z95.3 Presence of xenogenic heart valve
CPT/HCPCS: 36556; 70450; 71045; 71275; 74177; 80048; 80053; 81003; 81015; 82248; 82330; 82533; 82805; 82962; 83036; 83605; 83615; 83735; 83880; 84100; 84132; 84134; 84155; 84302; 84478; 84484; 85025; 85027; 85610; 85730; 87040; 87070; 87205; 87449; 87502; 87807; 87811; 87899; 92507; 92523; 92526; 92610; 92612; 92950; 93005; 93306; 94002; 94003; 94640; 94660; 95816; 96374; 96375; 96376; 97110; 97116; 97163; 97167; 97530; 97535; 99285; Q9950; Q9967